=== PATIENT | male | born 1945 | race Caucasian/White ===

== ENCOUNTER → 2024-05-01 11:23 | Outpatient (REF) | payer MEDICARE, OTHER, SELFPAY | LOC: RAD 11:23 | PROVIDERS: ATTENDING PHYSICIAN Internal Medicine Geriatric Medicine | DX: R93.0 Abnormal findings on diagnostic imaging of skull and head, not elsewhere classified (principal) | CPT/HCPCS: 70496; 70498; Q9967 ==

== ENCOUNTER → 2024-05-16 09:09 | Outpatient (REF) | payer MEDICARE, OTHER, SELFPAY | LOC: HWRCS 09:09 | PROVIDERS: ATTENDING PHYSICIAN Nurse Practitioner; FAMILY PHYSICIAN Internal Medicine Geriatric Medicine | DX: Z86.73 Personal history of transient ischemic attack (TIA), and cerebral infarction without residual deficits (principal) | CPT/HCPCS: 93306 ==

== ENCOUNTER 2024-06-14 20:51 | Inpatient (IN) | payer MEDICARE, OTHER, SELFPAY ==
[2024-06-14 15:28] VITALS: BP 176/88
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
[2024-06-14 16:27] LABS: Urine Albumin Negative (Neg - Trace); Urine Bilirubin Negative (Negative); Urine Character Clear (Clear); Urine Color Yellow; Urine Glucose Negative (Negative); Urine Ketone 1+ (Negative); Urine Leukocyte Negative (Negative); Urine Nitrite Negative (Negative); Urine Occult Blood Negative (Negative); Urine Specific Gravity 1.015 (<1.030); Urine Urobilinogen 1+ (Neg - 1+)
[2024-06-14 16:33] LABS: % Basophils 0.6 % (0-2); % Eosinophils 3.2 % (0-6); % Immature Granulocytes 0.4 % (0-0.5); % Lymphocytes 23.5 % (20.5-51.1); % Neutrophils 58.3 % (42.2-75.2); Absolute Eosinophils 0.2 10^3/uL (0-0.7); Absolute Lymphocytes 1.2 10^3/uL (1.2-3.4); Absolute Monocytes 0.7 10^3/uL (0.1-0.6); Absolute Neutrophils 3.1 10^3/uL (1.4-6.5); Hemoglobin 13.6 g/dL (13.0-18.0); Mean Corp Hgb Conc. 33.2 g/dL (33.0-37.0); Mean Corpuscular Hgb 30.1 pg (27.0-31.0); Mean Corpuscular Volume 90.7 fL (80.0-94.0); Mean Platelet Volume 9.9 fL (7.4-10.4); Nucleated Red Blood Cells % 0 % (-); Platelet Count 141 10^3/uL (130-400); Red Blood Cell Count 4.52 10^6/uL (4.70-6.10); White Blood Cell Count 5.3 10^3/uL (4.8-10.8)
[2024-06-14 16:45] LABS: Blood Urea Nitrogen 14 mg/dl (9-20); Calcium 9.2 mg/dl (8.4-10.2); Carbon Dioxide 31 mmol/L (22-30); Chloride 100 mmol/L (98-107); Glucose 86 mg/dl (70-99); Sodium 137 mmol/L (135-145); eGFR > 60.00
[2024-06-14 16:51] LABS: NT-proBNP 2920 pg/ml
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
[2024-06-14 20:38] VITALS: BP 144/78
[2024-06-14 22:23] LABS: ALT (SGPT) 11 U/L (0-50); AST (SGOT) 35 U/L (17-59); Alkaline Phosphatase 57 U/L (38-126); Blood Urea Nitrogen 13 mg/dl (9-20); Calcium 9.2 mg/dl (8.4-10.2); Carbon Dioxide 30 mmol/L (22-30); Chloride 102 mmol/L (98-107); Glucose 127 mg/dl (70-99); Potassium 3.8 mmol/L (3.5-5.1); Sodium 137 mmol/L (135-145); Total Bilirubin 0.9 mg/dl (0.2-1.3); Total Protein 6.5 g/dl (6.3-8.2); eGFR > 60.00
[2024-06-14 22:57] VITALS: BP 153/90
[2024-06-14 23:34] VITALS: BP 189/110
[2024-06-15] VITALS (12 sets, daily range): BP systolic 136–169; BP diastolic 74–104; PULSE 59; BMI 29.0
[2024-06-15] MEDS: SINEMET 25-100 1 TABLET PO ×2 (00:22→22:51)
[2024-06-15] MEDS: FLOMAX 0.4 MG PO ×2 (00:22→22:52)
[2024-06-15] MEDS: ARICEPT 5 MG PO ×2 (00:22→22:52)
[2024-06-15] MEDS: LASIX 20 MG IV ×2 (00:22→15:22)
[2024-06-15 02:17] LABS: Troponin I < 0.012 ng/ml
--- NOTE | 2024-06-15 03:00 | PTCARENOTE ---
Pt received as admission from ED. NSR/SB on tele with HR 50s-60s. AAOx3 on assessment, admission questions completed and pt oriented to room. Bed alarm in place for pt safety due to frequent falls. Offers no complaints at this time. Can make
needs known. Call segundo within reach.
[2024-06-15] MEDS: SYNTHROID 50 MCG PO (06:27)
[2024-06-15 06:29] LABS: Hematocrit 38.7 % (39.0-52.0); Hemoglobin 13.5 g/dL (13.0-18.0); Mean Corp Hgb Conc. 34.9 g/dL (33.0-37.0); Mean Corpuscular Hgb 30.2 pg (27.0-31.0); Mean Corpuscular Volume 86.6 fL (80.0-94.0); Mean Platelet Volume 11.1 fL (7.4-10.4); Platelet Count 154 10^3/uL (130-400); Red Blood Cell Count 4.47 10^6/uL (4.70-6.10); Red Cell Dist. Width 13.2 % (11.5-14.5); White Blood Cell Count 5.2 10^3/uL (4.8-10.8)
[2024-06-15] MEDS: SINEMET 25-100 2 TABLET PO ×2 (07:58→15:21)
[2024-06-15] MEDS: PLAVIX 75 MG PO (07:58)
[2024-06-15] MEDS: PROSCAR 5 MG PO (07:58)
[2024-06-15] MEDS: ZETIA 10 MG PO (07:58)
[2024-06-15] MEDS: LASIX 20 MG PO (07:58)
[2024-06-15] MEDS: ASPIR LOW (ENTERIC COATED) 81 MG PO (07:58)
[2024-06-15] MEDS: ALDACTONE 50 MG PO (07:58)
[2024-06-15] MEDS: TOPROL XL 25 MG PO ×2 (07:58→19:51)
[2024-06-15] MEDS: COLACE 100 MG PO (07:59)
[2024-06-15] MEDS: CELEXA 40 MG PO (07:59)
[2024-06-15] MEDS: DEPAKOTE ER (24 HR RELEASE) 500 MG PO (07:59)
[2024-06-15 08:06] LABS: Blood Urea Nitrogen 12 mg/dl (9-20); Calcium 9.1 mg/dl (8.4-10.2); Carbon Dioxide 31 mmol/L (22-30); Chloride 101 mmol/L (98-107); Estimated Creatinine Clearance 83 ml/min; Glucose 100 mg/dl (70-99); Potassium 4.3 mmol/L (3.5-5.1); Sodium 139 mmol/L (135-145); eGFR > 60.00
[2024-06-15 09:23] LABS: TSH Reflex To Free T4 3.62 uIU/ml (0.47-4.68)
--- NOTE | 2024-06-15 13:02 | PTCARENOTE ---
Patient out of bed in chair, at bedside. He is AO x3, pleasant. Condom cath intact, yellow urine. Chair and bed alarm in place for safety, hx of falls
--- NOTE | 2024-06-15 13:28 | W.PN.HOSP.TC ---
Today's Communication/Plan
-
Monitor vital signs see plan
IV Lasix
Monitor with diuresis
Cardiology evaluation
Do not think he needs another echo, defer to cardiology
PT/OT
discussed with spouse over the phone
Assessment / Plan
Assessment / Plan
General: Well Developed, Well Nourished, No Apparent Distress, Comfortable and Conversant
HEENT: NormoCephalic, Nose Appears Normal and Ears Appear Normal
Respiratory: Clear and Decreased Breath Sounds
Cardiac: S1/S2 and Regular Rhythm
GI: Soft, Non Tender and Non Distended
Musculoskeletal: Edema, Left Lower Extremity and Edema, Right Lower Extremity
Neuro: Awake and Alert
Psych: Calm
Acute CHF with reduced EF
Echo 05/16/2024 with EF 45 to 50%, aortic stenosis. Do not think he needs another echocardiogram, defer to cardiology
Continue with Lasix
Consult cardiology, follows up with Dr. ortez outpatient
BNP >2000s
Was not on any diuretics, recently HCTZ was discontinued by PCP.
Continue to monitor with Lasix
Continue spironolactone, metoprolol
Head CT without any acute intracranial abnormality. Ventricular dilation likely secondary to atrophy given patient history of dementia.
does not appear to be complaint with dietary restrictions. If he will not be compliant and likely would benefit from diuretics moving forward.
Ambulatory dysfunction with fall
History of Parkinson's
PT/OT recommending SNF
Essential HTN
- continue metoprolol, spironolactone
Parkinson's disease
- continue carbidopa-levodopa
Dementia, unknown subtype
Continue donepezil
Coronary artery disease with stents
- continue aspirin
Hypercholesterolemia
- continue pravastatin
hx of TIA
also on pralumet
not on ASA anymore; only taking plavix. discussed with spouse
BPH
- continue finasteride, tamsulosin
Hypothyroidism
- continue levothyroxine
DVT ppx: lovenox
Code: Full
I spent a total of 51 minutes with the patient or on the floor. More than 50% of this time involved counseling and coordination of care.
Anticipated Discharge: 24 - 48 hours
Subjective/Interval History
-
Date of Service: June 15, 2024
denies pain
Objective Data
-
Labs:
Laboratory Results
06/15/24 06/15/24
06:20 07:36
WBC 5.2
Hgb 13.5
Hct 38.7 L
Plt Count 154
Sodium Cancelled 139
Potassium Cancelled 4.3
Chloride Cancelled 101
Carbon Dioxide Cancelled 31 H
BUN Cancelled 12
Creatinine Cancelled 0.7
Glucose Cancelled 100 H
Calcium Cancelled 9.1
Vital Signs:
Vital Signs
Temp Pulse Resp BP Pulse Ox
98.0 F 59 16 154/80 98
06/15/24 11:27 06/15/24 12:35 06/15/24 11:27 06/15/24 12:35 06/15/24 11:27
I&O
06/14/24 06/15/24 06/16/24
06:59 06:59 06:59
Intake Total 340 / 340
Output Total 1625 / 1625
Balance -1285 / -1285
[2024-06-15 14:15] LABS: Troponin I 0.013 ng/ml
--- NOTE | 2024-06-15 14:50 | CON.CAR ---
Consultation
Consultation Request
Date/Time Consultation Requested: 06/15/2024
Date/Time Consultation Performed: 06/15/2024
Requesting Provider: Dr. Burkett
Performing Provider: Dr. Trejo
Reason for Consultation: CHF
Medical History
-
Chief Complaint: SOB
History of Present Illness:
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
(currently being treated at [facility]) admitted after a fall at home. Cardiology was consulted for CHF.
Past Medical History
Past Medical History: CAD, CHF, HTN and Hypercholesterolemia
Past Surgical History: Cardiac (Coronary stenting), Orthopedic (Cervical and lumbar disc procedures) and Other (Melanoma excision)
Social History
Tobacco: Former Smoker
Alcohol: None
Personal:
Living: With Family ()
Employment: Retired
Family History
Family History: Reviewed & Not Pertinent
Allergies / Home Medications
Allergy/AdvReac Type Severity Reaction Status Date / Time
pollen extracts Allergy SEASONAL-SNEEZING, Verified 06/14/24 15:28
RUNNY NOSE
�Medication �Instructions �Recorded �Confirmed �Type
levothyroxine 50 mcg tablet 50 mcg PO DAILY AT 0700 Thyroid 02/10/20 06/15/24 History
carbidopa 25 mg-levodopa 100 mg 2 tab PO BID@0800,1500 02/17/22 06/15/24 History
tablet Neurological Condition
coenzyme Q10 100 mg capsule 200 mg PO QPM Supplement 02/17/22 06/15/24 History
(CoQ-10)
pravastatin 80 mg tablet 80 mg PO HS High cholesterol 02/17/22 06/15/24 History
tamsulosin 0.4 mg capsule 0.4 mg PO HS Urinary issue 02/17/22 06/15/24 History
finasteride 5 mg tablet 5 mg PO DAILY Urinary Issue 11/04/22 06/15/24 History
metoprolol succinate 25 mg 25 mg PO HS Blood Pressure 11/04/22 06/15/24 History
tablet,extended release 24 hr
nitroglycerin 0.4 mg sublingual 0.4 mg sublingual [id number] PRN 11/04/22 06/15/24 History
tablet chest pain
spironolactone 50 mg tablet 25 mg PO DAILY 11/04/22 06/15/24 History
alirocumab 75 mg/mL subcutaneous 75 mg SC Q14D 06/14/24 06/15/24 History
pen injector (Praluent Pen)
citalopram 40 mg tablet (Celexa) 40 mg PO DAILY 06/14/24 06/15/24 History
clopidogrel 75 mg tablet (Plavix) 75 mg PO DAILY 06/14/24 06/15/24 History
divalproex 250 mg tablet,extended 500 mg PO HS 06/14/24 06/15/24 History
release 24 hr
docusate sodium 100 mg capsule 100 mg PO DAILY 06/14/24 06/15/24 History
(Colace)
donepezil 5 mg tablet 5 mg PO HS 06/14/24 06/15/24 History
ezetimibe 10 mg tablet (Zetia) 10 mg PO DAILY 06/14/24 06/15/24 History
cholecalciferol (vitamin D3) 50 50 mcg PO HS 06/15/24 06/15/24 History
mcg (2,000 unit) capsule (Vitamin
D3)
multivitamin 1 tab PO HS 06/15/24 06/15/24 History
Review of Systems
-
History Source: Patient and Family ( (Cammie) at bedside)
All other systems: Negative unless noted
Musculoskeletal: Muscle Stiffness (Parkinson's)
Physical Exam
Vital Signs
Temp Pulse Resp BP Pulse Ox
98.0 F 59 16 154/80 98
06/15/24 11:27 06/15/24 12:35 06/15/24 11:27 06/15/24 12:35 06/15/24 11:27
Lab Results
06/15/24 06:20
06/15/24 07:36
Troponin I 0.013 ng/ml 06/15/24 07:36
Oml-L-Oocieirivii Pept 2920 pg/ml 06/14/24 16:06
Physical Exam
General: No Apparent Distress and Comfortable
HEENT: Anicteric
Respiratory: Rhonchi (Scant bibasilar rhonchi)
Cardiac: S1/S2, Regular Rhythm, Murmur (Soft 2/6) and Peripheral Edema (1-2+)
Breast: N/A
GI: Soft and Non Tender
Rectal: Deferred by Provider
Musculoskeletal: Edema (1-2+)
Skin: Warm and Dry
Neuro: Awake and Alert
Psych: Calm
Impression / Plan
-
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
(currently being treated at [facility]) admitted after a fall at home. Cardiology was consulted for CHF.
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
-Patient is not on Lasix at home; continue Lasix 20 mg IV BID.
-Continue Toprol-XL 25 mg twice daily.
-Continue spironolactone 50 mg daily.
-Will start valsartan 40 mg daily and Farxiga 10 mg daily for GDMT.
-Echocardiogram was performed 1 month ago--no need to repeat.
CAD status post multivessel stenting in 2008
-Denies any anginal symptoms.
-Continue aspirin, clopidogrel, Toprol-XL, and high-dose pravastatin 80 mg daily.
Mild aortic stenosis/moderate mitral regurgitation:
-Volume management with Lasix as above.
Hypertension:
-Suboptimally controlled.
-Starting losartan as above; continue other medications.
Hyperlipidemia:
-Current status unknown.
-Will obtain a lipid panel.
-Continue high-dose pravastatin.
CVA:
-Relatively stable.
-Continue aspirin, clopidogrel, and pravastatin.
Parkinson's disease:
-Most likely cause of fall.
-Supportive care; management as per primary team.
Data Reviewed
-
EKG: Report Reviewed by me (EKG (06/14/2024): Sinus rhythm at 59 bpm with incomplete right bundle branch block and nonspecific T wave abnormality.)
Medical Tests (Nuc Med, Echo etc): Report Reviewed by me (Transthoracic echocardiogram (05/16/2024): LVEF 45-50%; mild aortic stenosis; moderate mitral regurgitation.)
[2024-06-15] MEDS: FARXIGA 10 MG PO (15:21)
[2024-06-15] MEDS: DIOVAN 40 MG PO (15:21)
[2024-06-15 16:17] LABS: Troponin I < 0.012 ng/ml
[2024-06-15] MEDS: LOVENOX 40 MG SC (18:40)
--- NOTE | 2024-06-15 21:54 | PTCARENOTE ---
Pt rec'd in bed. Sinus on telemetry. no dyspnea or cough noted. Lungs clear. call segundo within reach.
[2024-06-15] MEDS: PRAVACHOL 80 MG PO (22:51)
[2024-06-16] VITALS (9 sets, daily range): BP systolic 117–155; BP diastolic 64–126; BMI 28.2
[2024-06-16 04:42] LABS: Hematocrit 41.5 % (39.0-52.0); Hemoglobin 14.1 g/dL (13.0-18.0); Mean Corpuscular Hgb 30.1 pg (27.0-31.0); Mean Corpuscular Volume 88.5 fL (80.0-94.0); Platelet Count 148 10^3/uL (130-400); Red Blood Cell Count 4.69 10^6/uL (4.70-6.10); White Blood Cell Count 5.2 10^3/uL (4.8-10.8)
[2024-06-16 05:06] LABS: Blood Urea Nitrogen 18 mg/dl (9-20); Calcium 8.7 mg/dl (8.4-10.2); Carbon Dioxide 27 mmol/L (22-30); Chloride 103 mmol/L (98-107); Estimated Creatinine Clearance 83 ml/min; Glucose 94 mg/dl (70-99); HDL Cholesterol 58 mg/dl; LDL Cholesterol, Calculated 8 mg/dl; Potassium 3.7 mmol/L (3.5-5.1); Sodium 139 mmol/L (135-145); Total Cholesterol 86 mg/dl (50-199); Triglyceride 101 mg/dl (10-149); Very Low Density Lipoprotein 20 mg/dl (0-30); eGFR > 60.00
[2024-06-16] MEDS: SYNTHROID 50 MCG PO (07:48)
[2024-06-16 08:41] LABS: Glycohemoglobin (HgbA1c) 5.8 % (4.0-5.6)
[2024-06-16] MEDS: DEPAKOTE ER (24 HR RELEASE) 500 MG PO (08:46)
[2024-06-16] MEDS: FARXIGA 10 MG PO (08:47)
[2024-06-16] MEDS: CELEXA 40 MG PO (08:48)
[2024-06-16] MEDS: DIOVAN 40 MG PO (08:48)
[2024-06-16] MEDS: PROSCAR 5 MG PO (08:48)
[2024-06-16] MEDS: SINEMET 25-100 2 TABLET PO ×2 (08:48→16:32)
[2024-06-16] MEDS: ZETIA 10 MG PO (08:49)
[2024-06-16] MEDS: COLACE 100 MG PO (08:49)
[2024-06-16] MEDS: PLAVIX 75 MG PO (08:49)
[2024-06-16] MEDS: TOPROL XL 25 MG PO ×2 (08:50→20:12)
[2024-06-16] MEDS: LASIX 20 MG IV ×2 (08:50→16:32)
[2024-06-16] MEDS: ALDACTONE 50 MG PO (08:50)
--- NOTE | 2024-06-16 09:55 | PTCARENOTE ---
Assumed care. Patient is AOX3, using call segundo for needs, very pleasant. Condom catheter changed #30, large volume of yellow urine, has incontinence normally. SB, PVC's HR 55. Eating breakfast, call segundo in reach
--- NOTE | 2024-06-16 13:40 | W.PN.HOSP.TC ---
Today's Communication/Plan
-
Monitor vital signs see plan
PT/OT
Continue with IV diuresis
need rehab placement
Assessment / Plan
Assessment / Plan
General: Well Developed, Well Nourished, No Apparent Distress, Comfortable and Conversant
HEENT: NormoCephalic, Nose Appears Normal and Ears Appear Normal
Respiratory: Clear and Decreased Breath Sounds
Cardiac: S1/S2 and Regular Rhythm
GI: Soft, Non Tender and Non Distended
Musculoskeletal: Edema, Left Lower Extremity and Edema, Right Lower Extremity
Neuro: Awake and Alert
Psych: Calm
Acute CHF with reduced EF
Echo 05/16/2024 with EF 45 to 50%, aortic stenosis. Do not think he needs another echocardiogram, defer to cardiology
Continue with IV Lasix
Consult cardiology, follows up with Dr. ortez outpatient
BNP >2000s
Was not on any diuretics, recently HCTZ was discontinued by PCP.
Continue to monitor with Lasix
Continue spironolactone, metoprolol; added valsartan, Farxiga
Head CT without any acute intracranial abnormality. Ventricular dilation likely secondary to atrophy given patient history of dementia.
does not appear to be complaint with dietary restrictions. If he will not be compliant and likely would benefit from diuretics moving forward.
Ambulatory dysfunction with fall
History of Parkinson's
PT/OT recommending SNF
Essential HTN
- continue metoprolol, spironolactone
Parkinson's disease
- continue carbidopa-levodopa
Dementia, unknown subtype
Monitor for behavioral changes, very pleasant here
Continue donepezil
hx of DM
not on any meds
now a1c 5.8 which is much better
diet controlled
Coronary artery disease with stents
- continue aspirin
Hypercholesterolemia
- continue pravastatin
hx of TIA
also on pralumet
not on ASA anymore; only taking plavix. discussed with spouse
BPH
- continue finasteride, tamsulosin
Hypothyroidism
- continue levothyroxine
DVT ppx: lovenox
Code: Full
PT/OT recommending SNF
I spent a total of 52 minutes with the patient or on the floor. More than 50% of this time involved counseling and coordination of care.
Anticipated Discharge: 24 - 48 hours
Subjective/Interval History
-
Date of Service: June 16, 2024
Denies pain
Objective Data
-
Labs:
Laboratory Results
06/16/24
03:59
WBC 5.2
Hgb 14.1
Hct 41.5
Plt Count 148
Sodium 139
Potassium 3.7
Chloride 103
Carbon Dioxide 27
BUN 18
Creatinine 0.7
Glucose 94
Calcium 8.7
Vital Signs:
Vital Signs
Temp Pulse Resp BP Pulse Ox
98.5 F 52 20 147/93 98
06/16/24 10:50 06/16/24 08:50 06/16/24 10:50 06/16/24 03:52 06/16/24 10:50
I&O
06/15/24 06/16/24 06/17/24
06:59 06:59 06:59
Intake Total 340 / 340 480 / 480
Output Total 1625 / 1625 1125 / 1125 1150 / 1150
Balance -1285 / -1285 -1125 / -1125 -670 / -670
--- NOTE | 2024-06-16 15:23 | W.PN.CD ---
Today's Communication / Plan
-
-Continue Lasix 20 mg IV BID.
Impression / Plan
-
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
(currently being treated at [facility]) admitted after a fall at home. Cardiology was consulted for CHF.
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
-Patient is not on Lasix at home.
-Continue Lasix 20 mg IV BID.
-Continue Toprol-XL 25 mg twice daily.
-Continue spironolactone 50 mg daily.
-Continue valsartan 40 mg daily.
-Continue Farxiga 10 mg daily.
-Echocardiogram was performed 1 month ago--no need to repeat.
CAD status post multivessel stenting in 2008
-Denies any anginal symptoms.
-Continue aspirin, clopidogrel, Toprol-XL, and high-dose pravastatin 80 mg daily.
Mild aortic stenosis/moderate mitral regurgitation:
-Continue volume management with Lasix as above.
Hypertension:
-Improved; fairly controlled.
-Continue current medications as above.
Hyperlipidemia:
-Well-controlled
-Continue high-dose pravastatin.
CVA:
-Remanins relatively stable.
-Continue aspirin, clopidogrel, and pravastatin.
Parkinson's disease:
-Most likely cause of fall.
-Supportive care; management as per primary team.
Physical Exam
Vital Signs/Labs
Vital Signs
Temp Pulse Resp BP Pulse Ox
98.5 F 49 20 117/64 100
06/16/24 10:50 06/16/24 13:00 06/16/24 10:50 06/16/24 10:50 06/16/24 10:50
06/15/24 06/16/24 06/17/24
06:59 06:59 06:59
Actual Weight 84 kg 81.7 kg
06/16/24 03:59
06/16/24 03:59
Triglycerides 101 mg/dl (10-149) 06/16/24 03:59
LDL Cholesterol, Calc 8 mg/dl 06/16/24 03:59
VLDL Cholesterol, Calc 20 mg/dl (0-30) 06/16/24 03:59
HDL Cholesterol 58 mg/dl 06/16/24 03:59
06/14/24
16:06
Pil-L-Qvlpznngrnd Pept 2920
LAB Results
06/15/24 06/15/24 06/15/24
01:36 06:20 07:36
Troponin I < 0.012 Cancelled 0.013
06/15/24
15:40
Troponin I < 0.012
Physical Exam
Constitutional: No acute distress and Comfortable
EENT: Anicteric
Cardiovascular: Rhythm & rate is regular, Pedal edema present (1+), Systolic murmur present (2/6) and S1S2 is normal
Respiratory: Respiratory effort normal and Lungs clear to auscul.
Neuro/Psych: AO x 3
Other: Skin (Warm, dry)
Data Reviewed
-
Date of Service: June 16, 2024
EKG: Tracing Personally Visualized and interpreted (Telemetry: Sinus rhythm/bradycardia to 45 bpm)
Labs: Labs Reviewed by me
[2024-06-16] MEDS: LOVENOX 40 MG SC (16:32)
--- NOTE | 2024-06-16 17:43 | PTCARENOTE ---
Walked in the hallway with rolling walker to the lounge and back, gait steady. patient in chair now, call segundo in reach.
--- NOTE | 2024-06-16 21:20 | PTCARENOTE ---
Rec'd at change of shift. AAO*3, VSS, and pt in SR with occasional PVC's. Pt denies any pain or discomfort. Pt with hx of memory loss and placed on bed alarm for safety. Pt resting with call segundo in reach.
[2024-06-16] MEDS: FLOMAX 0.4 MG PO (22:26)
[2024-06-16] MEDS: SINEMET 25-100 1 TABLET PO (22:26)
[2024-06-16] MEDS: ARICEPT 5 MG PO (22:26)
[2024-06-16] MEDS: PRAVACHOL 80 MG PO (22:26)
[2024-06-17] VITALS (7 sets, daily range): BP systolic 109–149; BP diastolic 57–78; BMI 27.8
[2024-06-17 04:43] LABS: Blood Urea Nitrogen 23 mg/dl (9-20); Calcium 9.1 mg/dl (8.4-10.2); Carbon Dioxide 31 mmol/L (22-30); Chloride 99 mmol/L (98-107); Estimated Creatinine Clearance 72 ml/min; Glucose 93 mg/dl (70-99); Potassium 3.6 mmol/L (3.5-5.1); Sodium 138 mmol/L (135-145); eGFR > 60.00
[2024-06-17 04:59] LABS: Hematocrit 41.5 % (39.0-52.0); Hemoglobin 14.2 g/dL (13.0-18.0); Mean Corp Hgb Conc. 34.2 g/dL (33.0-37.0); Mean Corpuscular Hgb 30.4 pg (27.0-31.0); Mean Corpuscular Volume 88.9 fL (80.0-94.0); Mean Platelet Volume 10.1 fL (7.4-10.4); Platelet Count 152 10^3/uL (130-400); Red Blood Cell Count 4.67 10^6/uL (4.70-6.10)
[2024-06-17 05:14] LABS: Depakane 39.4 ug/ml (50.0-120.0)
[2024-06-17] MEDS: SYNTHROID 50 MCG PO (05:31)
[2024-06-17] MEDS: FARXIGA 10 MG PO (08:28)
[2024-06-17] MEDS: PLAVIX 75 MG PO (08:29)
[2024-06-17] MEDS: CELEXA 40 MG PO (08:29)
[2024-06-17] MEDS: ZETIA 10 MG PO (08:29)
[2024-06-17] MEDS: COLACE 100 MG PO (08:30)
[2024-06-17] MEDS: DEPAKOTE ER (24 HR RELEASE) 500 MG PO (08:30)
[2024-06-17] MEDS: SINEMET 25-100 2 TABLET PO ×2 (08:31→16:09)
[2024-06-17] MEDS: PROSCAR 5 MG PO (08:31)
[2024-06-17] MEDS: ALDACTONE 50 MG PO (08:31)
[2024-06-17] MEDS: DIOVAN 40 MG PO (08:31)
[2024-06-17] MEDS: LASIX 20 MG IV ×2 (08:32→16:09)
[2024-06-17] MEDS: TOPROL XL 25 MG PO ×2 (08:32→19:54)
--- NOTE | 2024-06-17 08:34 | W.PN.CD ---
Today's Communication / Plan
-
IV diuresis today; PO tomorrow
Impression / Plan
-
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
(currently being treated at [facility]) admitted after a fall at home. Cardiology was consulted for CHF.
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
-Patient is not on Lasix at home.
-Continue Lasix 20 mg IV BID.
-Continue Toprol-XL 25 mg twice daily.
-Continue spironolactone 50 mg daily.
-Continue valsartan 40 mg daily.
-Continue Farxiga 10 mg daily.
-Echocardiogram was performed 1 month ago--no need to repeat.
CAD status post multivessel stenting in 2008
-Denies any anginal symptoms.
-Continue aspirin, clopidogrel, Toprol-XL, and high-dose pravastatin 80 mg daily.
Mild aortic stenosis/moderate mitral regurgitation:
-Continue volume management with Lasix as above.
Hypertension:
-Improved; fairly controlled.
-Continue current medications as above.
Hyperlipidemia:
-Well-controlled
-Continue high-dose pravastatin.
CVA:
-Remanins relatively stable.
-Continue aspirin, clopidogrel, and pravastatin.
Parkinson's disease:
-Most likely cause of fall.
-Supportive care; management as per primary team.
Subjective: feeling better would like to walk more today
Physical Exam
Vital Signs/Labs
Vital Signs
Temp Pulse Resp BP Pulse Ox
98.2 F 53 16 139/65 96
06/17/24 07:15 06/17/24 05:00 06/17/24 07:15 06/17/24 03:42 06/17/24 07:15
06/16/24 06/17/24 06/18/24
06:59 06:59 06:59
Actual Weight 180 lb 1.883 oz 177 lb 7.554 oz
06/17/24 03:48
06/17/24 03:48
Triglycerides 101 mg/dl (10-149) 06/16/24 03:59
LDL Cholesterol, Calc 8 mg/dl 06/16/24 03:59
VLDL Cholesterol, Calc 20 mg/dl (0-30) 06/16/24 03:59
HDL Cholesterol 58 mg/dl 06/16/24 03:59
06/14/24
16:06
Tgm-Z-Aneoyfwkvzy Pept 2920
LAB Results
06/15/24 06/15/24 06/15/24
01:36 06:20 07:36
Troponin I < 0.012 Cancelled 0.013
06/15/24
15:40
Troponin I < 0.012
Physical Exam
Constitutional: No acute distress and Comfortable
EENT: Anicteric
Cardiovascular: Rhythm & rate is regular and Pedal edema present (trace to 1+)
Respiratory: Respiratory effort normal and Lungs clear to auscul.
GI: Soft
Neuro/Psych: Alert and Oriented
Data Reviewed
-
Date of Service: June 17, 2024
Medical Decision Making: Reviewed Test Results
EKG: Tracing Personally Visualized and interpreted (sr)
Echo: Tracing Personally Visualized and interpreted and Report Reviewed by me
Labs: Labs Reviewed by me
--- NOTE | 2024-06-17 13:14 | CM ---
Reviewed chart. Met with Mr. Noble to review discharge plans. He states prior to admission he resides with his spouse in a two sto ry home with two steps onto the home. He states he has a stair glide to get to the second floor. He states
prior to admission he was independent with ambulation and adls. He states he only has a stair glide at home and no other DME. He states he has a prescription plan. We reviewed the medical team recommendations for SNF/Rehab. He is agreeable to
going to SNF/Rehab. He states [facility] close [facility] home. He was agreeable to me calling his spouse to review SNF/Rehab. Telephone call to his spouse, Rebecca to review SNF/Rehab. She states she would like to explore SNF/Rehab. at
[facility] and [facility]. Referral sent to the above SNF's to check on bed availability. Medical work-up in progress. The discharge plan is to go to SNF/Rehab. when bed available and medically stable.
--- NOTE | 2024-06-17 13:40 | W.PN.HOSP.TC ---
Today's Communication/Plan
-
continue IV Lasix, then oral Lasix tomorrow
DC planning to a SNF
Assessment / Plan
Assessment / Plan
General: Well Developed, Well Nourished, No Apparent Distress, Comfortable and Conversant
HEENT: NormoCephalic, Nose Appears Normal and Ears Appear Normal
Respiratory: Clear and Decreased Breath Sounds
Cardiac: S1/S2 and Regular Rhythm
GI: Soft, Non Tender and Non Distended
Musculoskeletal: Edema, Left Lower Extremity and Edema, Right Lower Extremity
Neuro: Awake and Alert
Psych: Calm
Assessment:
Acute CHF with reduced EF
Echo 05/16/2024 with EF 45 to 50%, aortic stenosis. Do not think he needs another echocardiogram, defer to cardiology
Continue with IV Lasix BID; oral tomorrow
Consult cardiology, follows up with Dr. Kraft outpatient
BNP >2000s
Was not on any diuretics, recently HCTZ was discontinued by PCP.
Continue to monitor with Lasix
Continue spironolactone, metoprolol; added valsartan, Farxiga
Head CT without any acute intracranial abnormality. Ventricular dilation likely secondary to atrophy given patient history of dementia.
does not appear to be complaint with dietary restrictions. If he will not be compliant and likely would benefit from diuretics moving forward.
Ambulatory dysfunction with fall
History of Parkinson's
PT/OT recommending SNF
Essential HTN
- continue metoprolol, spironolactone
Parkinson's disease
- continue carbidopa-levodopa
Dementia, unknown subtype
Monitor for behavioral changes, very pleasant here
Continue donepezil
hx of DM
not on any meds
now a1c 5.8 which is much better
diet controlled
Coronary artery disease with stents
- continue aspirin
Hypercholesterolemia
- continue pravastatin
hx of TIA
also on pralumet
not on ASA anymore; only taking Plavix. discussed with spouse
BPH
- continue finasteride, tamsulosin
Hypothyroidism
- continue levothyroxine
DVT ppx: Lovenox
Code: Full
PT/OT recommending SNF. discussed with CM.
Anticipated Discharge: 24 - 48 hours
Subjective/Interval History
-
Date of Service: June 17, 2024
no complaints
Objective Data
-
Labs:
Laboratory Results
06/17/24
03:48
WBC 5.0
Hgb 14.2
Hct 41.5
Plt Count 152
Sodium 138
Potassium 3.6
Chloride 99
Carbon Dioxide 31 H
BUN 23 H
Creatinine 0.8
Glucose 93
Calcium 9.1
Vital Signs:
Vital Signs
Temp Pulse Resp BP Pulse Ox
98.0 F 51 18 147/76 96
06/17/24 11:28 06/17/24 10:00 06/17/24 11:28 06/17/24 07:14 06/17/24 11:28
I&O
06/16/24 06/17/24 06/18/24
06:59 06:59 06:59
Intake Total 480 / 480 480 / 480
Output Total 1125 / 1125 0 / 2049 600 / 600
Balance -1125 / -1125 -1570 / -1570 -120 / -120
Data Reviewed
-
Total Time Spent with Patient (in minutes): 51
Labs: Labs Reviewed by me
--- NOTE | 2024-06-17 14:40 | PTCARENOTE ---
pt continues to be sb on the monitor, hr in the 50s, vss. pt educated on plan of care and pt verbalized understanding. pt oob to chair for most of the day. call segundo within reach.
[2024-06-17] MEDS: KCL 40 MEQ PO (18:00)
[2024-06-17] MEDS: LOVENOX 40 MG SC (18:00)
--- NOTE | 2024-06-17 18:37 | PTCARENOTE ---
pt had 8 beat run of vt. vss. pt asymptomatic. notified enrique morse. ordered potassium, given as ordered see MAR. pt educated on plan of care and pt verbalized understanding. call segundo within reach.
--- NOTE | 2024-06-17 20:17 | PTCARENOTE ---
Received patient at change of shift. Sitting in chair, eating dinner, A&Ox3. Chair and bed alarms are on. BP 118/67, SB w/ occasional PVCs 50s, 98% on room air. Pt has no c/o of pain or SOB at this time. Discussed calling the care team when wanting
to get up. Patient verbalized understanding. Call segundo within reach.
[2024-06-17] MEDS: FLOMAX 0.4 MG PO (22:02)
[2024-06-17] MEDS: SINEMET 25-100 1 TABLET PO (22:02)
[2024-06-17] MEDS: PRAVACHOL 80 MG PO (22:02)
[2024-06-17] MEDS: ARICEPT 5 MG PO (22:09)
[2024-06-18] VITALS (10 sets, daily range): BP systolic 86–155; BP diastolic 50–87; PULSE 114; O2SAT 96; BMI 27.3
[2024-06-18 05:37] LABS: Blood Urea Nitrogen 28 mg/dl (9-20); Calcium 9.1 mg/dl (8.4-10.2); Carbon Dioxide 30 mmol/L (22-30); Chloride 100 mmol/L (98-107); Estimated Creatinine Clearance 72 ml/min; Glucose 108 mg/dl (70-99); Sodium 137 mmol/L (135-145); eGFR > 60.00
[2024-06-18] MEDS: SYNTHROID 50 MCG PO (06:32)
--- NOTE | 2024-06-18 08:33 | W.PN.HOSP.TC ---
Today's Communication/Plan
-
possible transition to PO diuretics today; if this occurs, patient is medically stable for DC if SNF bed found. D/w CM.
Assessment / Plan
Assessment / Plan
General: Well Developed, Well Nourished, No Apparent Distress, Comfortable and Conversant
HEENT: NormoCephalic, Nose Appears Normal and Ears Appear Normal
Respiratory: Clear and Decreased Breath Sounds
Cardiac: S1/S2 and Regular Rhythm
GI: Soft, Non Tender and Non Distended
Musculoskeletal: Edema, Left Lower Extremity and Edema, Right Lower Extremity
Neuro: Awake and Alert
Psych: Calm
Assessment:
Acute CHF with reduced EF
Echo 05/16/2024 with EF 45 to 50%, aortic stenosis. Do not think he needs another echocardiogram, defer to cardiology
Continue with IV Lasix BID; transition to oral possibly today per Cardiology.
Consult cardiology, follows up with Dr. Kraft outpatient
BNP >2000s
Was not on any diuretics, recently HCTZ was discontinued by PCP.
Continue to monitor with Lasix
Continue spironolactone, metoprolol; added valsartan, Farxiga
Head CT without any acute intracranial abnormality. Ventricular dilation likely secondary to atrophy given patient history of dementia.
does not appear to be complaint with dietary restrictions. If he will not be compliant and likely would benefit from diuretics moving forward.
Ambulatory dysfunction with fall
History of Parkinson's
PT/OT recommending SNF - pending bed
Essential HTN
- continue metoprolol, spironolactone
Parkinson's disease
- continue carbidopa-levodopa
Dementia, unknown subtype
Monitor for behavioral changes, very pleasant here
Continue donepezil
hx of DM
not on any meds
now a1c 5.8 which is much better
diet controlled
Coronary artery disease with stents
- continue aspirin
Hypercholesterolemia
- continue pravastatin
hx of TIA
also on pralumet
not on ASA anymore; only taking Plavix. Dr. Burkett discussed with spouse
BPH
- continue finasteride, tamsulosin
Hypothyroidism
- continue levothyroxine
DVT ppx: Lovenox
Code: Full
PT/OT recommending SNF. discussed with CM.
Anticipated Discharge: Within 24 hours
Subjective/Interval History
-
Date of Service: June 18, 2024
denies any new complaints at present
Objective Data
-
Labs:
Laboratory Results
06/18/24
04:38
Sodium 137
Potassium 4.0
Chloride 100
Carbon Dioxide 30
BUN 28 H
Creatinine 0.8
Glucose 108 H
Calcium 9.1
Vital Signs:
Vital Signs
Temp Pulse Resp BP Pulse Ox
98.1 F 51 16 146/74 96
06/18/24 04:31 06/18/24 05:00 06/18/24 04:31 06/18/24 04:33 06/18/24 04:31
I&O
06/17/24 06/18/24 06/19/24
06:59 06:59 06:59
Intake Total 480 / 480 480 / 480
Output Total 2049 190 / 1899
Balance -1570 / -1570 -1420 / -1420
Data Reviewed
-
Total Time Spent with Patient (in minutes): 41
Labs: Labs Reviewed by me
--- NOTE | 2024-06-18 08:56 | W.PN.CD ---
Today's Communication / Plan
-
hold pm IV lasix
transition to Po lasix tomorrow---this is new
he needs to comply with daily wts and call for s/sx of overdiuresis or weight gain
will arrange follow up in ~1 month after SNF discharge
I will sign off
Impression / Plan
-
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
(currently being treated at [facility]) admitted after a fall at home. Cardiology was consulted for CHF.
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
-he is euvolemic today
-Patient is not on Lasix at home.
-he already received IV lasix today, will stop pm dose and add 20mg po lasix daily to start tomorrow
-discussed s/sx of over diuresis and wt gatin
-continue daily weights at discharge.
-Continue Toprol-XL 25 mg twice daily.
-Continue spironolactone 50 mg daily.
-Continue valsartan 40 mg daily.
-Continue Farxiga 10 mg daily.
-Echocardiogram was performed 1 month ago--no need to repeat.
CAD status post multivessel stenting in 2008
-Denies any anginal symptoms.
-Continue aspirin, clopidogrel, Toprol-XL, and high-dose pravastatin 80 mg daily.
Mild aortic stenosis/moderate mitral regurgitation:
-Continue volume management with Lasix as above.
Hypertension:
-Improved; fairly controlled.
-Continue current medications as above.
Hyperlipidemia:
-Well-controlled
-Continue high-dose pravastatin.
CVA:
-Remanins relatively stable.
-Continue aspirin, clopidogrel, and pravastatin.
Parkinson's disease:
-Most likely cause of fall.
-Supportive care; management as per primary team.
Subjective: he is feeling much better, no new complaint.
Physical Exam
Vital Signs/Labs
Vital Signs
Temp Pulse Resp BP Pulse Ox
98.1 F 51 16 146/74 95
06/18/24 07:00 06/18/24 05:00 06/18/24 07:00 06/18/24 04:33 06/18/24 07:00
06/17/24 06/18/24 06/19/24
06:59 06:59 06:59
Actual Weight 80.5 kg
06/17/24 03:48
06/18/24 04:38
Triglycerides 101 mg/dl (10-149) 06/16/24 03:59
LDL Cholesterol, Calc 8 mg/dl 06/16/24 03:59
VLDL Cholesterol, Calc 20 mg/dl (0-30) 06/16/24 03:59
HDL Cholesterol 58 mg/dl 06/16/24 03:59
06/14/24
16:06
Yhx-W-Mebzqontlkk Pept 2920
LAB Results
06/15/24 06/15/24
07:36 15:40
Troponin I 0.013 < 0.012
Physical Exam
Constitutional: No acute distress
Cardiovascular: Rhythm & rate is regular, Pedal edema is absent, JVD pressure is normal and Systolic murmur absent
Respiratory: Respiratory effort normal, Lungs clear to auscul., Wheeze Absent and Crackles Absent
Neuro/Psych: AO x 3
Data Reviewed
-
Date of Service: June 18, 2024
Medical Decision Making: Review of Case with other Provider (d/w Dr Flaco amin for discharge)
EKG: Other (tele sinus with pvcs)
[2024-06-18] MEDS: LASIX 20 MG IV (09:12)
[2024-06-18] MEDS: SINEMET 25-100 2 TABLET PO ×2 (09:21→15:12)
[2024-06-18] MEDS: CELEXA 40 MG PO (09:22)
[2024-06-18] MEDS: ALDACTONE 50 MG PO (09:22)
[2024-06-18] MEDS: TOPROL XL 25 MG PO ×2 (09:22→19:46)
[2024-06-18] MEDS: PROSCAR 5 MG PO (09:22)
[2024-06-18] MEDS: FARXIGA 10 MG PO (09:23)
[2024-06-18] MEDS: PLAVIX 75 MG PO (09:23)
[2024-06-18] MEDS: DEPAKOTE ER (24 HR RELEASE) 500 MG PO (09:23)
[2024-06-18] MEDS: COLACE 100 MG PO (09:23)
[2024-06-18] MEDS: DIOVAN 40 MG PO (09:23)
[2024-06-18] MEDS: ZETIA 10 MG PO (09:24)
--- NOTE | 2024-06-18 10:31 | CM ---
Reviewed chart. Telephone call to [facility] to check on bed availability. [facility] states they will have a bed for him tomorrow 06/19/24. Telephone call to spouse to update her and met with Mr. Noble to update
him. He will need a COVID-19 test prior to leaving. Reviewed transportation and out of pocket cost for wheelchair van. Medical work-up in progress. The discharge plan is to go to SNF/Rehab- hopefully [facility] when medically stable.
--- NOTE | 2024-06-18 11:48 | PTCARENOTE ---
Discussed plan for d/c on 06/19, with pt's spouse, via phone. Pt's spouse requesting that pt be given a walker on d/c. Pt does not have his own walker, per spouse. notified.
[2024-06-18] MEDS: LOVENOX 40 MG SC (17:10)
[2024-06-18] MEDS: SINEMET 25-100 1 TABLET PO (22:49)
[2024-06-18] MEDS: PRAVACHOL 80 MG PO (22:49)
[2024-06-18] MEDS: FLOMAX 0.4 MG PO (22:49)
[2024-06-18] MEDS: ARICEPT 5 MG PO (22:49)
[2024-06-19 03:43] VITALS: BP 149/74
[2024-06-19 04:06] VITALS: BMI 27.3
[2024-06-19 05:07] LABS: COVID-19 Antigen Negative (Negative)
[2024-06-19 05:17] LABS: Hematocrit 42.4 % (39.0-52.0); Hemoglobin 14.4 g/dL (13.0-18.0); Mean Corpuscular Hgb 30.3 pg (27.0-31.0); Mean Corpuscular Volume 89.1 fL (80.0-94.0); Mean Platelet Volume 10.1 fL (7.4-10.4); Platelet Count 138 10^3/uL (130-400); Red Blood Cell Count 4.76 10^6/uL (4.70-6.10); Red Cell Dist. Width 12.9 % (11.5-14.5); White Blood Cell Count 4.5 10^3/uL (4.8-10.8)
[2024-06-19 06:38] LABS: Blood Urea Nitrogen 29 mg/dl (9-20); Calcium 9.7 mg/dl (8.4-10.2); Carbon Dioxide 25 mmol/L (22-30); Chloride 102 mmol/L (98-107); Estimated Creatinine Clearance 72 ml/min; Glucose 107 mg/dl (70-99); Potassium 4.2 mmol/L (3.5-5.1); Sodium 136 mmol/L (135-145); eGFR > 60.00
[2024-06-19 06:53] VITALS: BP 164/88
[2024-06-19] MEDS: CELEXA 40 MG PO (08:37)
[2024-06-19] MEDS: SYNTHROID 50 MCG PO (08:37)
[2024-06-19] MEDS: ALDACTONE 50 MG PO (08:37)
[2024-06-19] MEDS: COLACE 100 MG PO (08:37)
[2024-06-19] MEDS: DEPAKOTE ER (24 HR RELEASE) 500 MG PO (08:37)
[2024-06-19] MEDS: ZETIA 10 MG PO (08:38)
[2024-06-19] MEDS: DIOVAN 40 MG PO (08:38)
[2024-06-19] MEDS: PLAVIX 75 MG PO (08:38)
[2024-06-19] MEDS: LASIX 40 MG PO (08:38)
[2024-06-19] MEDS: FARXIGA 10 MG PO (08:38)
[2024-06-19] MEDS: SINEMET 25-100 2 TABLET PO (08:39)
[2024-06-19] MEDS: PROSCAR 5 MG PO (08:39)
[2024-06-19] MEDS: TOPROL XL PO ×2 (08:39→10:17)
--- NOTE | 2024-06-19 10:41 | W.PN.HOSP.TC ---
Addendum entered and electronically signed by Enrrique Burkett MD 06/19/24 10:52:
Acute on chronic congestive heart failure with reduced ejection fraction
Original Note:
Today's Communication/Plan
-
Monitor vitals
See plan
Decrease metoprolol
Continue with Lasix
Continue Aldactone
Discharge today to SNF
Time of discharge 37 minutes
Assessment / Plan
Assessment / Plan
General: Well Developed, Well Nourished, No Apparent Distress, Comfortable and Conversant
HEENT: NormoCephalic, Nose Appears Normal and Ears Appear Normal
Respiratory: Clear and Decreased Breath Sounds
Cardiac: S1/S2 and Regular Rhythm
GI: Soft, Non Tender and Non Distended
Musculoskeletal: Edema, Left Lower Extremity and Edema, Right Lower Extremity
Neuro: Awake and Alert
Psych: Calm
Assessment:
Acute CHF with reduced EF
Echo 05/16/2024 with EF 45 to 50%, aortic stenosis. Do not think he needs another echocardiogram, defer to cardiology
Continue with IV Lasix BID; now on p.o. Lasix per cardiology
Consult cardiology, follows up with Dr. Kraft outpatient
BNP >2000s
Was not on any diuretics, recently HCTZ was discontinued by PCP.
Continue to monitor with Lasix
Continue spironolactone, metoprolol; added valsartan, Farxiga. Metoprolol decreased secondary to bradycardia. Denies any dizziness
Head CT without any acute intracranial abnormality. Ventricular dilation likely secondary to atrophy given patient history of dementia.
does not appear to be complaint with dietary restrictions. If he will not be compliant and likely would benefit from diuretics moving forward.
Ambulatory dysfunction with fall
History of Parkinson's
PT/OT recommending SNF - pending bed
Essential HTN
- continue metoprolol, spironolactone
Parkinson's disease
- continue carbidopa-levodopa
Dementia, unknown subtype
Monitor for behavioral changes, very pleasant here
Continue donepezil
hx of DM
not on any meds
now a1c 5.8 which is much better
diet controlled
Coronary artery disease with stents
- continue aspirin
Hypercholesterolemia
- continue pravastatin
hx of TIA
also on pralumet
not on ASA anymore; only taking Plavix. Dr. Burkett discussed with spouse
BPH
- continue finasteride, tamsulosin
Hypothyroidism
- continue levothyroxine
DVT ppx: Lovenox
Code: Full
PT/OT recommending SNF. discussed with CM.
Anticipated Discharge: Today
Subjective/Interval History
-
Date of Service: June 19, 2024
Denies pain
Objective Data
-
Labs:
Laboratory Results
06/19/24
04:37
WBC 4.5 L
Hgb 14.4
Hct 42.4
Plt Count 138
Sodium 136
Potassium 4.2
Chloride 102
Carbon Dioxide 25
BUN 29 H
Creatinine 0.8
Glucose 107 H
Calcium 9.7
Vital Signs:
Vital Signs
Temp Pulse Resp BP Pulse Ox
98 F 44 20 164/88 97
06/19/24 06:53 06/19/24 10:17 06/19/24 06:53 06/19/24 06:53 06/19/24 06:53
I&O
06/18/24 06/19/24 06/20/24
06:59 06:59 06:59
Intake Total 480 / 480 490 / 490
Output Total 1900 / 1900 1400 / 1400 150 / 150
Balance -1420 / -1420 -910 / -910 -150 / -150
--- NOTE | 2024-06-19 10:44 | PTCARENOTE ---
Received patient this morning resting in bed. Offers no complaints, aware of plans to go to [facility] today by wheel chair van. Assisted oob with the rolling walker to the chair. HR consistently in the 40's, asymptomatic. TT to cardiology and
toprol dosage adjusted. Call segundo in reach, chair/bed alarm in place and activated.
--- NOTE | 2024-06-19 10:49 | CM ---
Addendum entered by Maral Wood 06/19/24 11:24:
Arrangements made with [facility] to transport Mr. Noble to [facility] today at 12:00 noon. Updated nursing staff, patient and spouse. The discharge plan is to go to [facility] when medically stable.
Original Note:
Reviewed chart. Received telephone call from [facility] who confirms ability to accept today. [facility] report number is [phone]) and the fax number is [phone]) COVID test done. Telephone call to Mrs. Noble to
review discharge plan and transportation to [facility]. Reviewed out of pocket cost for wheelchair van. She is agreeable to wheelchair van. Reviewed with attending physician. Medical work-up in progress. The discharge plan is to go to [facility] when medically stable.
--- NOTE | 2024-06-19 10:51 | W.DCSUMMARY ---
Discharge Summary
Discharge Data
Date of Admission: 06/14/24
Date of Discharge: 06/19/24
-
Pending Results: No
Hospital Course
78-year-old male with past medical history of essential hypertension, Parkinson disease, dementia, diabetes mellitus, coronary artery disease with stents, CHF, hyperlipidemia, TIA, BPH, hypothyroidism came to the hospital with amatory dysfunction
with fall and congestive heart failure exacerbation. Patient had an echocardiogram recently outpatient which showed EF of 45 to 50% with aortic stenosis. Patient was not on any diuresis prior to the admission. Patient was started on IV Lasix
which improved his symptoms and later he was transitioned to p.o. Lasix prior to discharge. On this hospitalization his metoprolol was also decreased due to bradycardia. Patient was also evaluated by physical therapy who recommended SNF. Once his
symptoms continue to improve, he was then discharged to rehab with instructions to follow-up with all his physicians outpatient.
Discharge Plan
-
Patient Disposition: Group Home/SNF
Discharge Diagnosis/Procedures: Acute on chronic congestive heart failure with reduced ejection fraction
Mild aortic stenosis
Sinus bradycardia
Ambulatory dysfunction
Diet: As tolerated and Low Cholesterol
Activity: With assistance
Driving Restrictions: As prior to admission
Bathing Restrictions: None
Blood Work: BMP next week with primary care provider
Instructions: *CBC Heart Failure Instructions
Referrals:
[facility] [Outside]
Deepa Resendiz CRNP [Specified Professional Personl] - 07/16/24 10:00 am
Olvin Gibson MD [Family Provider] - in less than 1 week
Prescriptions:
New
furosemide 40 mg Tablet
40 mg PO DAILY Qty: 0 0RF
metoprolol succinate 25 mg Tablet Extended Release 24 Hr
12.5 mg PO BID Qty: 0 0RF
spironolactone 50 mg Tablet
50 mg PO DAILY Qty: 0 0RF
valsartan 40 mg Tablet
40 mg PO DAILY Qty: 0 0RF
dapagliflozin propanediol 10 mg Tablet
10 mg PO DAILY Qty: 0 0RF
Continued
levothyroxine 50 MCG tablet
50 mcg PO DAILY AT 0700
pravastatin 80 mg Tablet
80 mg PO HS
tamsulosin 0.4 mg Capsule
0.4 mg PO HS
carbidopa-levodopa 25-100 mg Tablet
2 tab PO BID@0800,1500
coenzyme Q10 [CoQ-10] 100 mg Capsule
200 mg PO QPM
finasteride 5 mg Tablet
5 mg PO DAILY
nitroglycerin 0.4 mg tablet, sublingual
0.4 mg sublingual [id number] PRN (Reason: chest pain)
donepezil 5 mg Tablet
5 mg PO HS
clopidogrel [Plavix] 75 mg Tablet
75 mg PO DAILY
ezetimibe [Zetia] 10 mg Tablet
10 mg PO DAILY
divalproex 250 mg Tablet Extended Release 24 Hr
500 mg PO HS
Praluent Pen 75 mg/mL Pen Injector
75 mg SC Q14D
citalopram [Celexa] 40 mg Tablet
40 mg PO DAILY
docusate sodium [Colace] 100 mg Capsule
100 mg PO DAILY
cholecalciferol (vitamin D3) [Vitamin D3] 50 mcg (2,000 unit) Capsule
50 mcg PO HS
multivitamin Tablet
1 tab PO HS
carbidopa-levodopa 25-100 mg Tablet
1 tab PO HS
Discontinued
metoprolol succinate 25 mg tablet extended release 24 hr
25 mg PO HS
spironolactone 50 mg tablet
25 mg PO DAILY
Discharge Orders:
Discharge Patient (As Directed); Ordered 06/19/24
Ordered By: Enrrique Burkett
Care Plan Goals
Care Plan Goals:
Problem: Readiness for enhanced knowledge related to diagnosis and treatment plan
Goal: Understand your diagnosis and treatment plan needs, including medications if applicable.
Instructions: Know your diagnosis, underlying causes and treatment plan options, including medications if applicable. Consult with your health care team to learn about your diagnosis and treatment plan, including medications if applicable.
Discharge Date and Time
Discharge Date/Time: 06/19/24 13:44
Print Language: COOK ISLAND[place]
[2024-06-19] MEDS: TOPROL XL 12.5 MG PO (11:00)
[2024-06-19 11:23] VITALS: BP 108/49
--- NOTE | 2024-06-19 12:38 | PTCARENOTE ---
Telephoned [facility] with report, patient transferred with his belongings to the facility.
--- NOTE | 2024-06-20 11:02 | W.HF.CON ---
Heart Failure
- LV Function
Left ventricular function study result: LV Ejection fraction 41-49%
Ejection Fraction Percentage: 45-50
- ARNI
Patient already on ARNI: No
Heart Failure ARNI Contraindication: Hypotension
- ACEI/ARB
Patient already on ACEI/ARB: Yes
- Beta Willow
Patient already on Evidence Based Beta Willow: Yes
- Mineralocorticord Receptor Antagonist
Patient already on MRA: Yes
- SGLT-2 Inhibitor
Patient already on SGLT-2 Inhibitor: Yes
- NYHA CHF Classification
NYHA CHF Classification Level: Class III - Symptoms w/ min exertion, interferes w/ nml daily activity
- ACC/AHA Stage
ACC/AHA Stage: Stage C: Symptomatic Heart Failure
== END 2024-06-19 13:44 | DRG 56 ==
LOC: IVU 20:51
PROVIDERS: Internal Medicine; Nurse Practitioner; ADMITTING PHYSICIAN Internal Medicine; ATTENDING PHYSICIAN Internal Medicine; CONSULT PHYSICIAN Internal Medicine; EMERGENCY PHYSICIAN Emergency Medicine; FAMILY PHYSICIAN Internal Medicine Geriatric Medicine
DX: G20.A1 Parkinson's disease without dyskinesia, without mention of fluctuations (principal); I50.23 Acute on chronic systolic (congestive) heart failure; I11.0 Hypertensive heart disease with heart failure; E11.9 Type 2 diabetes mellitus without complications; I25.10 Atherosclerotic heart disease of native coronary artery without angina pectoris; E03.9 Hypothyroidism, unspecified; E26.9 Hyperaldosteronism, unspecified; E78.00 Pure hypercholesterolemia, unspecified; F02.80 Dementia in other diseases classified elsewhere, unspecified severity, without behavioral disturbance, psychotic disturbance, mood disturbance, and anxiety; I35.0 Nonrheumatic aortic (valve) stenosis; I25.5 Ischemic cardiomyopathy; I34.0 Nonrheumatic mitral (valve) insufficiency; I45.10 Unspecified right bundle-branch block; R29.6 Repeated falls; N40.0 Benign prostatic hyperplasia without lower urinary tract symptoms; Z95.5 Presence of coronary angioplasty implant and graft; Z87.891 Personal history of nicotine dependence; Z86.73 Personal history of transient ischemic attack (TIA), and cerebral infarction without residual deficits; Z85.820 Personal history of malignant melanoma of skin; Z79.899 Other long term (current) drug therapy; Z79.02 Long term (current) use of antithrombotics/antiplatelets; Z79.890 Hormone replacement therapy; Z11.52 Encounter for screening for COVID-19
CPT/HCPCS: 70450; 71046; 72110; 80048; 80053; 80061; 80164; 81003; 83036; 83880; 84443; 84484; 85025; 85027; 87811; 93005; 97110; 97112; 97163; 97167; 99285

== ENCOUNTER 2024-12-05 16:08 | Emergency (ER) | payer MEDICARE, OTHER, SELFPAY ==
[2024-12-05 16:12] VITALS: BP 145/83
[2024-12-05 17:57] VITALS: BP 160/101
[2024-12-05 17:58] VITALS: BP 160/101
[2024-12-05 18:00] VITALS: BP 161/87
[2024-12-05 18:02] VITALS: BMI 26.2
--- NOTE | 2024-12-05 18:18 | ED.GENMED ---
History of Present Illness
<Odalis Packer PA-C - Last Filed: 12/05/24 23:51>
General
Chief Complaint: Eye Problems
Source: patient and family
Exam Limitations: none
Time Seen by Provider: 12/05/24 18:00
History of Present Illness
History of Present Illness:
79yoM with a history of melanoma, coronary artery disease s/p PCI, Parkinson's disease, hypertension, hyperlipidemia, and prior TIA presenting with his for an eye concern. Patient had several doctors appointments yesterday and was unable to
take a nap during the day. He slept for 13 hours overnight. When he woke up this morning, noticed that his left eye was turned inward. She spoke with his eye doctor and was told to go to the ED for a possible stroke. states these eye
symptoms are intermittent. Patient himself denies any complaints. Specifically, he denies any diplopia, blurred vision, eye pain, headache, dizziness, weakness, speech disturbance, balance issues. is worried because he is supposed to stop
his Plavix tomorrow in anticipation of a procedure next week at [facility].
Past History
<Odalis Packer PA-C - Last Filed: 12/05/24 23:51>
Past History
ED Past Medical History: CAD, HTN and Hypercholesterolemia
ED Past Surgical History: Cardiac (PTCA with stents) and Orthopedic ((had laminectomy last month, Dr. Santillan).)
Social History
Tobacco: Non-smoker
Alcohol: Occasional
Drug: None
Personal:
Living: with family
Employment: Retired
Family History
Family History: Other (Noncontributory)
Phy Exam
<Odalis Packer PA-C - Last Filed: 12/05/24 23:51>
General Physical Exam
General Presentation: well appearing and no apparent distress
General Skin: warm and dry
General Habitus: normal
General Mental: alert
ENT Exam
ENT Exam: normocephalic
Eye Exam
Eye Exam: PERRL, EOMI, conjunctiva normal, visual omalley normal and other (No objective eye deviation noted. PERRL. EOMs are intact without evidence of cranial nerve palsy. Visual omalley intact.)
Pulmonary Exam
Pulmonary Exam: no respiratory distress
Neurological Exam
Neurological Exam: alert, CN II-XII intact, no motor deficits, no sensory deficits, speech normal and cerebellum intact
NIH Stroke Score
Level of Consciousness: 0 - Alert
LOC questions: 0-Answers both correctly
LOC Commands: 0-Performs both correctly
Best Gaze: 0-Normal
Visual Omalley: 0=Normal, no visual loss
Facial palsy: 0=Normal, symmetrical
Motor - Right Arm: 0=No drift 10 seconds
Motor - Left Arm: 0=No drift 10 seconds
Motor - Right Le-No drift 5 seconds
Motor - Left Le-No drift 5 seconds
Limb Ataxia: 0-Absent
Sensation: 0-Normal
Best Language: 0-No aphasia
Dysarthria: 0-Normal
Extinction and Inattention: 0-No abnormality
Total Score:: 0
Yordy Coma Scale
Eye Opening: Spontaneous
Verbal Response: Oriented
Motor Response: Obeys Commands
GCS Total Score: 15
Skin Exam
Skin Exam: normal color and warm/dry
Psychiatric Exam
Psychiatric Exam: normal mood/affect
Course
<Odalis Packer PA-C - Last Filed: 12/05/24 23:51>
Orders/Labs/Results
Orders:
Orders
12/05/24 16:[address] [CT Head W/o Iv Contrast] Urgent
Comment:
Reason For Exam: R eye crossed.
Vital Signs
Initial and Last Documented VS:
Initial Vital Signs
Temp Pulse Resp BP Pulse Ox
97.8 F 66 16 145/83 98
12/05/24 16:12 12/05/24 16:12 12/05/24 16:12 12/05/24 16:12 12/05/24 16:12
Last Documented Vital Signs
Temp Pulse Resp BP Pulse Ox
98.3 F 60 18 156/101 97
12/05/24 18:00 12/05/24 17:58 12/05/24 17:58 12/05/24 19:00 12/05/24 18:58
<Maren Dickson DO - Last Filed: 12/05/24 19:51>
Orders/Labs/Results
Orders:
Orders
12/05/24 16:[address] [CT Head W/o Iv Contrast] Urgent
Comment:
Reason For Exam: R eye crossed.
Vital Signs
Initial and Last Documented VS:
Initial Vital Signs
Temp Pulse Resp BP Pulse Ox
97.8 F 66 16 145/83 98
12/05/24 16:12 12/05/24 16:12 12/05/24 16:12 12/05/24 16:12 12/05/24 16:12
Last Documented Vital Signs
Temp Pulse Resp BP Pulse Ox
98.3 F 60 18 156/101 97
12/05/24 18:00 12/05/24 17:58 12/05/24 17:58 12/05/24 19:00 12/05/24 18:58
<Odalis Packer PA-C - Last Filed: 12/05/24 23:51>
MDM/Problems Addressed
Differential Diagnosis Includes:
79yoM presenting for eye problem. concerned that L eye was turning inward this morning. Patient denies complaints and has no visual disturbance. No cranial nerve palsy noted on exam and extraocular movements are intact. NIHSS 0. Very low
clinical suspicion for acute CVA. Patient also evaluated by Dr. Dickson. Suspect that symptoms may be related to his Parkinson's disease. He was advised to f/u with his ophthlamologist and return to the ED with any new or worsening symptoms.
<Odalis Packer PA-C - Last Filed: 12/05/24 23:51>
*Pulse Oximetry
SaO2: 99
Oxygen Mode of Delivery: Room air
Patient hypoxic: no (98%)
*Critical Care Note
Total Time (30-74mins, 75-104mins- exclusive of procedures): Not Applicable
ED Attending Note
<Odalis Packer PA-C - Last Filed: 12/05/24 23:51>
-
Portions of this chart may have been created with voice recognition software.� Occasional wrong word or��sound alike� substitutions may have occurred due to the inherent limitations of voice recognition software.
<Maren Dickson DO - Last Filed: 12/05/24 19:51>
ED Attending Note
Patient seen and examined by attending physician: Yes
I performed the substantive portion of visit, reviewed & personally made and approve the management plan that is documented in note by myself or MIGEL.: Yes
I performed a history and physical exam of patient and discussed management with resident, I reviewed resident's note and agree with documented findings and plan of care.: Yes
ED Attending Note:
79-year-old male with history of Parkinson's, CHF, dementia, and history of TIA on Plavix presenting for concern of ocular issue. Patient arrives with who notes earlier today she noticed that the left eye was turning more inward, intermittent.
She called the eye doctor who advised that she bring him to the hospital for rule out stroke. Patient himself denies any concern already his eyes, denies any visual changes, weakness or numbness to extremities. Does note that he has had a 'mini
stroke 'in the past, however had no symptoms from it, was found incidentally on imaging. also notes that patient had an MRI of his head on November 22, without abnormality. Patient denies additional acute medical complaints. Vital signs are
significant for mild hypertension.
On exam patient is resting comfortably, no acute distress or discomfort. On my ocular exam, pupils are equal and reactive and extraocular movements are intact. No apparent sign of ocular palsy. Peripheral omalley are intact and equal strength and
sensation bilaterally. Patient had CT imaging prior to my assessment, without acute abnormality. Without present concern for acute pathology given absence of any symptoms or obvious deficits to the extraocular movements. notes that she does
feel like it is better now. Possible mild ophthalmoplegia from underlying Parkinson's. Lower suspicion for acute stroke. Patient made an appoint with his eye doctor on Monday which I encouraged he maintain for full ocular exam. Otherwise feel
stable for discharge. Did discuss return precautions with patient and at bedside including any increased abnormality to ocular movements, or additional acute neurologic symptoms. They verbalized understanding
Discharge Plan
Departure
Patient Disposition: Home (Routine Discharge)
Date of Disposition: 12/05/24
Time of Disposition: 19:12
Patient with high blood pressure during this ER visit?: Yes
Discharge Problem:
Eye problem
Instructions: Eyestrain
Prescriptions:
No Action
levothyroxine 50 MCG tablet
50 mcg PO DAILY AT 0700
pravastatin 80 mg Tablet
80 mg PO HS
tamsulosin 0.4 mg Capsule
0.4 mg PO HS
carbidopa-levodopa 25-100 mg Tablet
2 tab PO BID@0800,1500
coenzyme Q10 [CoQ-10] 100 mg Capsule
200 mg PO QPM
finasteride 5 mg Tablet
5 mg PO DAILY
nitroglycerin 0.4 mg tablet, sublingual
0.4 mg sublingual [id number] PRN (Reason: chest pain)
donepezil 5 mg Tablet
5 mg PO HS
clopidogrel [Plavix] 75 mg Tablet
75 mg PO DAILY
ezetimibe [Zetia] 10 mg Tablet
10 mg PO DAILY
divalproex 250 mg Tablet Extended Release 24 Hr
500 mg PO HS
Praluent Pen 75 mg/mL Pen Injector
75 mg SC Q14D
citalopram [Celexa] 40 mg Tablet
40 mg PO DAILY
docusate sodium [Colace] 100 mg Capsule
100 mg PO DAILY
cholecalciferol (vitamin D3) [Vitamin D3] 50 mcg (2,000 unit) Capsule
50 mcg PO HS
multivitamin Tablet
1 tab PO HS
carbidopa-levodopa 25-100 mg Tablet
1 tab PO HS
furosemide 40 mg Tablet
40 mg PO DAILY Qty: 0 0RF
metoprolol succinate 25 mg Tablet Extended Release 24 Hr
12.5 mg PO BID Qty: 0 0RF
spironolactone 50 mg Tablet
50 mg PO DAILY Qty: 0 0RF
valsartan 40 mg Tablet
40 mg PO DAILY Qty: 0 0RF
dapagliflozin propanediol 10 mg Tablet
10 mg PO DAILY Qty: 0 0RF
Referrals:
Olvin Gibson MD [Family Provider, Internal Medicine]
Activity Restrictions/Additional Instructions:
Please follow-up with your eye doctor. Return to the ER with any new or worsening symptoms.
Interventions
Interventions:
*Risk Screen - Suicide Last Done: 12/05/24 16:12
*General Assessment Last Done: 12/05/24 18:34
*Neglect/Abuse Screening Last Done: 12/05/24 16:12
*ED- Fall Risk Assessment Last Done: 12/05/24 16:12
*ED COVID-19 Vaccine History Last Done: 12/05/24 18:34
*Nursing Disposition Last Done: 12/05/24 19:37
Discharge Date and Time
Discharge Date/Time: 12/05/24 19:47
Print Language: PARAGUAYAN
[2024-12-05 19:00] VITALS: BP 156/101
== END 2024-12-05 19:47 | disposition home or self-care (01) ==
LOC: EMR 16:08
PROVIDERS: EMERGENCY PHYSICIAN Student in an Organized Health Care Education/Training Program; FAMILY PHYSICIAN Internal Medicine Geriatric Medicine
DX: H57.89 Other specified disorders of eye and adnexa (principal); I25.10 Atherosclerotic heart disease of native coronary artery without angina pectoris; I11.0 Hypertensive heart disease with heart failure; I50.9 Heart failure, unspecified; E78.00 Pure hypercholesterolemia, unspecified; G20.A1 Parkinson's disease without dyskinesia, without mention of fluctuations; Z86.73 Personal history of transient ischemic attack (TIA), and cerebral infarction without residual deficits; Z95.5 Presence of coronary angioplasty implant and graft; Z79.02 Long term (current) use of antithrombotics/antiplatelets
CPT/HCPCS: 99284; 70450

== ENCOUNTER 2025-02-06 23:58 | Inpatient (IN) | payer MEDICARE, OTHER, SELFPAY ==
[2025-02-06] VITALS (10 sets, daily range): BP systolic 152–191; BP diastolic 93–130; BMI 26.4
[2025-02-06 18:38] LABS: Hematocrit 44.9 % (39.0-52.0); Hemoglobin 15.0 g/dL (13.0-18.0); Mean Corp Hgb Conc. 33.4 g/dL (33.0-37.0); Mean Corpuscular Volume 85.9 fL (80.0-94.0); Nucleated Red Blood Cells % 0 % (-); Platelet Count 208 10^3/uL (130-400); Red Cell Dist. Width 14.6 % (11.5-14.5)
[2025-02-06 18:51] LABS: ALT (SGPT) 112 U/L (0-50); AST (SGOT) 207 U/L (17-59); Albumin 3.7 g/dl (3.5-5.0); Alkaline Phosphatase 67 U/L (38-126); Blood Urea Nitrogen 19 mg/dl (9-20); Calcium 9.4 mg/dl (8.4-10.2); Carbon Dioxide 29 mmol/L (22-30); Chloride 106 mmol/L (98-107); Glucose 169 mg/dl (70-99); Potassium 3.3 mmol/L (3.5-5.1); Sodium 138 mmol/L (135-145); Total Protein 6.1 g/dl (6.3-8.2); eGFR > 60.00
[2025-02-06 19:01] LABS: Troponin I 3.100 ng/ml
[2025-02-06] MEDS: KCL 40 MEQ PO (19:58)
[2025-02-06] MEDS: LOW STRENGTH ASPIRIN 324 MG PO (19:58)
--- NOTE | 2025-02-06 20:02 | ED.GENMED ---
History of Present Illness
<Edi Schneider PA-C - Last Filed: 02/06/25 23:09>
General
Chief Complaint: Breathing Problem
Source: patient
Exam Limitations: none
Time Seen by Provider: 02/06/25 19:42
History of Present Illness
History of Present Illness:
79-year-old male with history of CHF, Lewy body dementia, Parkinson's on Plavix and aspirin as well as Lasix. Presents with increasing shortness of breath over the past several days. Lasix was increased as an outpatient to 40 mg from 20 mg daily.
He describes orthopnea. He denies chest pain. He notes shortness of breath with minimal exertion. No known weight gain. No other complaints
Past History
<Edi Schneider PA-C - Last Filed: 02/06/25 23:09>
Past History
ED Past Medical History: CAD, HTN and Hypercholesterolemia
ED Past Surgical History: Cardiac (PTCA with stents) and Orthopedic ((had laminectomy last month, Dr. Santillan).)
Social History
Tobacco: Non-smoker
Alcohol: Occasional
Drug: None
Personal:
Living: with family
Employment: Retired
Family History
Family History: Other (Noncontributory)
Phy Exam
<Edi Schneider PA-C - Last Filed: 02/06/25 23:09>
Physical Exam
Physical Exam:
General: Well-developed male with increased work of breathing
HEENT: Normal cephalic atraumatic
Heart: Regular rate and rhythm
Lungs: Slightly tachypneic and Rales at the bases
Extremities pitting edema bilateral lower extremities
Scores
<Edi Schneider PA-C - Last Filed: 02/06/25 23:09>
Heart Failure Risk
Heart Failure Risk Score: Not Applicable
Course
<Edi Schneider PA-C - Last Filed: 02/06/25 23:09>
Orders/Labs/Results
Orders:
Orders
02/06/25 18:04
Electrocardiogram (*1) Urgent
Reason for Study: Shortness of Breath
EKG- Treatment ONCE
02/06/25 18:09
Electrocardiogram (*1) Urgent
Reason for Study: Shortness of Breath
EKG- Treatment ONCE
02/06/25 18:21
Complete Blood Count/With Diff Urgent
Comprehensive Metabolic Panel Urgent
Pro-BNP [NT-proBNP] Urgent
Troponin I Urgent
02/06/25 19:51
CR Chest Portable - 1 View Urgent
Comment:
Reason For Exam: sob
Reason Study Needs to be Portable: Unable to Transport
02/06/25 19:52
Potassium Chloride [KCl] 40 meq PO NOW STA
02/06/25 19:54
Aspirin Chewable [Low Strength Aspirin] 324 mg PO NOW STA
02/06/25 19:55
Nitroglycerin Ointment [Nitro-Bid] 1 inch TOPICAL NOW STA
02/06/25 21:03
CT Chest PE Study Urgent
Comment:
Reason For Exam: sob
02/06/25 21:35
Troponin I Urgent
02/06/25 22:46
PTT Urgent
Comment: Obtain baseline before beginning heparin infusion if not already collected
Heparin 4,000 units IV NOW STA
Pharmacy Request to Place See Dose Instructions PO NOW STA
Discontinue all Active Warfarin orders?: Yes
Nursing to Place Non Medication Order As Directed
Physician Order: PTT 6 hours after initial start of Heparin infusion
02/06/25 22:50
Furosemide [Lasix] 40 mg IV NOW STA
02/06/25 23:00
Heparin 99468 Units/250 ml 25,000 units in 250 ml IV PER PROTOCOL
Weight to be used for heparin protocol in kilograms (kg):: 78.6
Protocol:: Cardiac Tx/Acute Coronary
PTT Goal Range to be used:: PTT 73 to 111 seconds
Order type:: Initial
INITIAL Infusion Dose (UNITS/KG/hr) & then follow protocol:: 12 units/kg/hr
Infusion Dose in UNITS/hr & then follow protocol (UNITS/hr):: 950
INFUSION RATE in mL/hr & then follow protocol (mL/hr):: 9.5
PTT less than or equal to 64 seconds:: Increase rate by 200 units/hr (+ 2 mL/hr)
PTT 64.1 to 72.9 seconds:: Increase rate by 100 units/hr (+ 1 mL/hr)
PTT 73 to 111 seconds:: Target Range. No change in rate.
PTT 111.1 to 130.9 seconds:: Decrease rate by 100 units/hr (- 1 mL/hr)
PTT 131 to 199.9 seconds:: HOLD for 1 hr. Then decrease rate by 200 units/hr (- 2 mL/hr)
PTT greater than or equal to 200 seconds:: HOLD for 2 hrs & Notify Provider. Then decrease by 200 units/hr (-
2 mL/hr)
Lab follow-up:: Each change, PTT q6h until 2 consecutive are therapeutic. Then PTT
daily.
Pharmacy Request to Place See Dose Instructions IV DIRECTED
Abnormal Lab Results
02/06/25 02/06/25
18:21 21:35
RDW 14.6 H %
(11.5-14.5)
Absolute Lymphs (auto) 0.9 L 10^3/uL
(1.2-3.4)
Absolute Monos (auto) 0.8 H 10^3/uL
(0.1-0.6)
Lymphocytes % 12.6 L %
(20.5-51.1)
Monocytes % 10.8 H %
(1.7-9.3)
Potassium 3.3 L mmol/L
(3.5-5.1)
Glucose 169 H mg/dl
(70-99)
AST 207 H U/L
(17-59)
ALT 112 H U/L
(0-50)
Troponin I 3.100 H* ng/ml 3.270 H* ng/ml
Total Protein 6.1 L g/dl
(6.3-8.2)
02/06/25 18:21
02/06/25 18:21
Vital Signs
Initial and Last Documented VS:
Initial Vital Signs
Temp Pulse Resp BP Pulse Ox
98.8 F 67 18 161/93 98
02/06/25 18:05 02/06/25 18:05 02/06/25 18:05 02/06/25 18:05 02/06/25 18:05
Last Documented Vital Signs
Temp Pulse Resp BP Pulse Ox
98.8 F 102 28 178/120 98
02/06/25 18:05 02/06/25 20:45 02/06/25 20:45 02/06/25 20:26 02/06/25 20:45
<Isrrael Velasquez MD - Last Filed: 02/06/25 21:43>
Orders/Labs/Results
Orders:
Orders
02/06/25 18:04
Electrocardiogram (*1) Urgent
Reason for Study: Shortness of Breath
EKG- Treatment ONCE
02/06/25 18:09
Electrocardiogram (*1) Urgent
Reason for Study: Shortness of Breath
EKG- Treatment ONCE
02/06/25 18:21
Complete Blood Count/With Diff Urgent
Comprehensive Metabolic Panel Urgent
Pro-BNP [NT-proBNP] Urgent
Troponin I Urgent
02/06/25 19:51
CR Chest Portable - 1 View Urgent
Comment:
Reason For Exam: sob
Reason Study Needs to be Portable: Unable to Transport
02/06/25 19:52
Potassium Chloride [KCl] 40 meq PO NOW STA
02/06/25 19:54
Aspirin Chewable [Low Strength Aspirin] 324 mg PO NOW STA
02/06/25 19:55
Nitroglycerin Ointment [Nitro-Bid] 1 inch TOPICAL NOW STA
02/06/25 21:03
CT Chest PE Study Urgent
Comment:
Reason For Exam: sob
02/06/25 21:35
Troponin I Urgent
02/06/25 22:46
PTT Urgent
Comment: Obtain baseline before beginning heparin infusion if not already collected
Heparin 4,000 units IV NOW STA
Pharmacy Request to Place See Dose Instructions PO NOW STA
Discontinue all Active Warfarin orders?: Yes
Nursing to Place Non Medication Order As Directed
Physician Order: PTT 6 hours after initial start of Heparin infusion
02/06/25 22:50
Furosemide [Lasix] 40 mg IV NOW STA
02/06/25 23:00
Heparin 02921 Units/250 ml 25,000 units in 250 ml IV PER PROTOCOL
Weight to be used for heparin protocol in kilograms (kg):: 78.6
Protocol:: Cardiac Tx/Acute Coronary
PTT Goal Range to be used:: PTT 73 to 111 seconds
Order type:: Initial
INITIAL Infusion Dose (UNITS/KG/hr) & then follow protocol:: 12 units/kg/hr
Infusion Dose in UNITS/hr & then follow protocol (UNITS/hr):: 950
INFUSION RATE in mL/hr & then follow protocol (mL/hr):: 9.5
PTT less than or equal to 64 seconds:: Increase rate by 200 units/hr (+ 2 mL/hr)
PTT 64.1 to 72.9 seconds:: Increase rate by 100 units/hr (+ 1 mL/hr)
PTT 73 to 111 seconds:: Target Range. No change in rate.
PTT 111.1 to 130.9 seconds:: Decrease rate by 100 units/hr (- 1 mL/hr)
PTT 131 to 199.9 seconds:: HOLD for 1 hr. Then decrease rate by 200 units/hr (- 2 mL/hr)
PTT greater than or equal to 200 seconds:: HOLD for 2 hrs & Notify Provider. Then decrease by 200 units/hr (-
2 mL/hr)
Lab follow-up:: Each change, PTT q6h until 2 consecutive are therapeutic. Then PTT
daily.
Pharmacy Request to Place See Dose Instructions IV DIRECTED
Abnormal Lab Results
02/06/25 02/06/25
18:21 21:35
RDW 14.6 H %
(11.5-14.5)
Absolute Lymphs (auto) 0.9 L 10^3/uL
(1.2-3.4)
Absolute Monos (auto) 0.8 H 10^3/uL
(0.1-0.6)
Lymphocytes % 12.6 L %
(20.5-51.1)
Monocytes % 10.8 H %
(1.7-9.3)
Potassium 3.3 L mmol/L
(3.5-5.1)
Glucose 169 H mg/dl
(70-99)
AST 207 H U/L
(17-59)
ALT 112 H U/L
(0-50)
Troponin I 3.100 H* ng/ml 3.270 H* ng/ml
Total Protein 6.1 L g/dl
(6.3-8.2)
02/06/25 18:21
02/06/25 18:21
Vital Signs
Initial and Last Documented VS:
Initial Vital Signs
Temp Pulse Resp BP Pulse Ox
98.8 F 67 18 161/93 98
02/06/25 18:05 02/06/25 18:05 02/06/25 18:05 02/06/25 18:05 02/06/25 18:05
Last Documented Vital Signs
Temp Pulse Resp BP Pulse Ox
98.8 F 102 28 178/120 98
02/06/25 18:05 02/06/25 20:45 02/06/25 20:45 02/06/25 20:26 02/06/25 20:45
<Edi Schneider PA-C - Last Filed: 02/06/25 23:09>
MDM/Problems Addressed
Differential Diagnosis Includes:
Patient with shortness of breath. On exam does appear volume overloaded. He is slightly tachypneic on exam. BNP elevated troponin is elevated as well. Patient is not having chest pain. I suspect CHF with elevated BNP. Blood pressure is
elevated here. Nitroglycerin ordered. Patient is slightly hypokalemic. Will order potassium and patient may require additional IV Lasix once potassium is repleted. Discussed with emergency room attending. Will require admission
<Edi Schneider PA-C - Last Filed: 02/06/25 23:09>
*Pulse Oximetry
SaO2: 98
Oxygen Mode of Delivery: Room air
Patient hypoxic: no
*Critical Care Note
Total Time (30-74mins, 75-104mins- exclusive of procedures): Not Applicable
<Edi Schneider PA-C - Last Filed: 02/06/25 23:09>
Update Note
Update Note:
Echocardiogram from May of this year showed an ejection fraction of 40-45%
Troponins were elevated here at 3.1. BNP elevated. Chest x-ray reviewed without significant finding. PE study of the chest was performed secondary to elevated troponin increased work of breathing. No obvious large infarct. Will admit for CHF
and possible non-STEMI. Heparin ordered nitro and and Lasix were ordered after potassium was replaced
ED Attending Note
<Edi Schneider PA-C - Last Filed: 02/06/25 23:09>
-
Portions of this chart may have been created with voice recognition software.� Occasional wrong word or��sound alike� substitutions may have occurred due to the inherent limitations of voice recognition software.
<Isrrael Velasquez MD - Last Filed: 02/06/25 21:43>
ED Attending Note
Patient seen and examined by attending physician: Yes
ED Attending Note:
I have seen and evaluated the patient with a [id number] encounter. I have spoken to the advance practicer provider and involved in the medical history, the physical exam, medical decision making.
Evaluation and management service: agree unless noted differently below.
Results interpretation: agree unless noted differently below.
Focused HPI: 79-year-old male with history of frontotemporal dementia, Parkinson's disease, melanoma, CAD, hypertension, hyperlipidemia presents to the ER for evaluation of shortness of breath. He is accompanied by his who provides some
collateral history as patient is somewhat of a poor historian. It sounds like he has been complaining of some shortness of breath over the past few weeks. He has been having issues with orthopnea. He has had some increase swelling in his legs.
He has been receiving immunotherapy at [facility] for melanoma. He follows with Dr. Kraft for cardiology. It sounds like a few days ago Lasix was increased because of his symptoms but despite this symptoms progressed which
prompted ER visit tonight. He denies any chest pain. Denies any cough or fever.
Physical exam: Awake and alert. Hypertensive, tachypneic but not hypoxic. No fever. Heart rate 90s on my assessment. Faint systolic murmur. Very faint rales at the lung bases. Bilateral lower extremity edema noted. No JVD noted.
Medical Decision Makin-year-old male presents for evaluation of shortness of breath and orthopnea over the past few weeks. This is despite increased Lasix on as an outpatient. Overall suspect likely CHF. He is hypertensive will treat with
nitroglycerin. Labs were sent off including a CBC and a CMP�CMP showed hypokalemia and we will replete this prior to administering Lasix. Mild transaminitis likely from vascular congestion. proBNP greater than 5000 consistent with CHF. This
troponin is elevated consistent with NSTEMI will plan to treat with aspirin and heparinize. We sent for a CT chest given his troponin elevation cancer history and this showed no signs of PE. Will admit to the hospitalist for continued management.
Discharge Plan
Departure
Patient Disposition: Admit
Date of Disposition: 02/06/25
Time of Disposition: 23:09
Presentation/result/management discussed w/ accepting MD/DO: Hospitalist
Discharge Problem:
CHF (congestive heart failure), Non-ST elevation IA (NSTEMI)
Prescriptions:
No Action
pravastatin 80 mg Tablet
80 mg PO HS
tamsulosin 0.4 mg Capsule
0.4 mg PO HS
carbidopa-levodopa 25-100 mg Tablet
2 tab PO BID@0800,1500
coenzyme Q10 [CoQ-10] 100 mg Capsule
200 mg PO QPM
finasteride 5 mg Tablet
5 mg PO DAILY
nitroglycerin 0.4 mg tablet, sublingual
0.4 mg sublingual [id number] PRN (Reason: chest pain)
clopidogrel [Plavix] 75 mg Tablet
75 mg PO DAILY
ezetimibe [Zetia] 10 mg Tablet
10 mg PO DAILY
divalproex 250 mg Tablet Extended Release 24 Hr
500 mg PO HS
Praluent Pen 75 mg/mL Pen Injector
75 mg SC Q14D
citalopram [Celexa] 40 mg Tablet
40 mg PO DAILY
docusate sodium [Colace] 100 mg Capsule
100 mg PO Q48H
cholecalciferol (vitamin D3) [Vitamin D3] 50 mcg (2,000 unit) Capsule
50 mcg PO DAILY
multivitamin Tablet
1 tab PO HS
furosemide 40 mg Tablet
40 mg PO DAILY Qty: 0 0RF
dapagliflozin propanediol 10 mg Tablet
10 mg PO DAILY Qty: 0 0RF
acetaminophen [Tylenol] 325 mg Tablet
650 mg PO Q6HPRN PRN (Reason: mild pain)
donepezil 10 mg Tablet
10 mg PO HS
spironolactone 25 mg Tablet
12.5 mg PO DAILY
losartan 25 mg Tablet
25 mg PO DAILY
Rexulti 1 mg Tablet
2 mg PO QPM
levothyroxine [Synthroid] 100 mcg Tablet
100 mcg PO SUSA
levothyroxine [Synthroid] 50 mcg Tablet
50 mcg PO [id number]
Referrals:
Olvin Gibson MD [Family Provider, Internal Medicine]
Interventions
Interventions:
*Risk Screen - Suicide Last Done: 02/06/25 18:05
*General Assessment Last Done: 02/06/25 18:05
*Neglect/Abuse Screening Last Done: 02/06/25 18:05
*ED- Fall Risk Assessment Last Done: 02/06/25 20:06
*ED COVID-19 Vaccine History Last Done: 02/06/25 20:06
ED- Cardiac Assessment Last Done: 02/06/25 20:06
ED- Pulmonary Assessment Last Done: 02/06/25 20:06
Discharge Date and Time
Print Language: HAITIAN
[2025-02-06] MEDS: NITRO-BID 1 INCH TOPICAL (20:26)
[2025-02-06 22:17] LABS: Troponin I 3.270 ng/ml
[2025-02-06] MEDS: LASIX 40 MG IV (23:25)
--- NOTE | 2025-02-06 23:27 | HPS.HSE ---
Family Physician
-
Family Physician: Olvin Gibson
Chief Complaint
-
Shortness of breath
History of Present Illness
This is a 79-year-old who has a past medical history significant for congestive heart failure with EF that is mildly reduced at 25 to 50%, fis-gmsaylv-poiwmigyf diabetes, hypertension, BPH, prior history of NSTEMI, hypothyroid, hyperlipidemia
presenting to the emergency department with worsening shortness of breath over the last 2 weeks.
Patient reported that he has been feeling dyspnea on exertion and even shortness of breath at rest over the last 2 weeks. He reports has been progressive. He reports that he feels he cannot catch his breath. He reports that when he lays down to
sleep he can hear himself wheeze. He also reports bilateral lower extremity edema that has been increasing over the last 2 weeks. He states his dose of Lasix was increased from 20 mg to 40 mg without any improvement in symptoms. He is not aware
of any acute weight gain. He denies any chest pain. He denies any episode of severe diaphoresis or sensation of chest heaviness. Patient denies any sick contacts. Denies any cough cold or flulike symptoms. Denies any recent changes in his
medications.
On arrival in the emergency department he was hypertensive to 178/120 with a pulse rate of 102 and he was satting 98% on room air. ECG shows a normal sinus rhythm at a rate of 97 with a right bundle which is unchanged compared to prior except for
increased duration. There is mild J-point elevation. Troponin was elevated at 3.27. BNP was 5300. CBC was unremarkable. Electrolytes BUN and creatinine went well for a potassium of 3.3 but otherwise unremarkable. Chest x-ray shows no acute
infiltrates but cannot exclude small/tiny bilateral pleural effusions.
CT: No evidence of central pulmonary embolism. Cardiomegaly with coronary artery calcifications and/or stents. Tiny bilateral pleural effusions with accompanying bilateral lower lobe subsegmental atelectasis. Two small low-attenuation right
adrenal lesions without significant change from prior abdomen CT, most likely benign adenomas.
Medical History
Past Medical History
Past Medical History: Reports Other
Additional Past Medical History:
PTCA with stents
laminectomy last month, Dr. Santillan
Type 2 diabetes mellitus without long-term current use of insulin
Benign prostatic hyperplasia with lower urinary tract symptoms
Hyperlipidemia
Essential (primary) hypertension
hyperaldosteronism
Former smoker
Allergic rhinitis
Hypercholesterolemia
History of coronary artery stent placement
Gynecomastia
Hyperaldosteronism
Age-related nuclear cataract, bilateral
Hypertension secondary to other renal disorders
Stented coronary artery
Incomplete right bundle branch block
Essential hypertension
Dyslipidemia
Cervical spinal cord compression
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
Parkinson disease, symptomatic
Atherosclerotic heart disease
History of laminectomy
Primary osteoarthritis of right hip
Alzheimer's disease, unspecified
Major depressive disorder,
Past Surgical History: Reports Other
Additional Past Surgical History:
See above
Social History
Tobacco: Non-smoker
Alcohol: None
Drug: None
Personal:
Living: With Family
Family History
Family History: Not pertinent
Allergies / Home Medications
Allergies reflects when Allergies were last updated in [employer].
Home Medications with original date entered in [employer]
Allergy/Medication List:
Allergies
Allergy/AdvReac Type Severity Reaction Status Date / Time
pollen extracts Allergy SEASONAL-SNEEZING, Verified 06/14/24 15:28
RUNNY NOSE
Home Medications
levothyroxine 50 mcg tablet 50 mcg PO DAILY AT 0700 Thyroid 02/10/20
carbidopa 25 mg-levodopa 100 mg tablet 2 tab PO BID@0800,1500 Neurological Condition 02/17/22
coenzyme Q10 100 mg capsule (CoQ-10) 200 mg PO QPM Supplement 02/17/22
pravastatin 80 mg tablet 80 mg PO HS High cholesterol 02/17/22
tamsulosin 0.4 mg capsule 0.4 mg PO HS Urinary issue 02/17/22
finasteride 5 mg tablet 5 mg PO DAILY Urinary Issue 11/04/22
metoprolol succinate 25 mg tablet,extended release 24 hr 25 mg PO BID Blood Pressure 11/04/22
nitroglycerin 0.4 mg sublingual tablet 0.4 mg sublingual [id number] PRN chest pain 11/04/22
spironolactone 50 mg tablet 50 mg PO DAILY 11/04/22
alirocumab 75 mg/mL subcutaneous pen injector (Praluent Pen) 75 mg SC Q14D 06/14/24
aspirin 81 mg tablet,delayed release 81 mg PO DAILY 06/14/24
carbidopa 25 mg-levodopa 100 mg tablet 1 tab PO HS 06/14/24
citalopram 40 mg tablet (Celexa) 40 mg PO DAILY 06/14/24
clopidogrel 75 mg tablet (Plavix) 75 mg PO DAILY 06/14/24
divalproex 250 mg tablet,extended release 24 hr 500 mg PO DAILY 06/14/24
docusate sodium 100 mg capsule (Colace) 100 mg PO DAILY 06/14/24
donepezil 5 mg tablet 5 mg PO HS 06/14/24
ezetimibe 10 mg tablet (Zetia) 10 mg PO DAILY 06/14/24
Review of Systems
-
Constitutional: Reports No Symptoms
EENT: Reports No Symptoms
Respiratory: Reports Trouble Breathing
Cardiac: Reports No Symptoms
Abdomen/GI: Reports No Symptoms
: Reports No Symptoms
Musculoskeletal: Reports No Symptoms
Skin: Reports No Symptoms
Neurological: Reports No Symptoms
Endocrine: Reports No Symptoms
Hematologic/Lymphatic: Reports No Symptoms
Psych: Reports No Symptoms
Physical Exam
Vital Signs
Vital Signs
Temp Pulse Resp BP Pulse Ox
98.8 F 102 28 178/120 98
02/06/25 18:05 02/06/25 20:45 02/06/25 20:45 02/06/25 20:26 02/06/25 20:45
Physical Exam
General: Well Developed, Well Nourished, Comfortable and Conversant
HEENT: NormoCephalic, Nose Appears Normal and Ears Appear Normal; No Oxygen
Respiratory: Clear; No Wheezes, Rales, Rhonchi or Crackles
Cardiac: S1/S2 and Regular Rhythm; No Murmur, Rub or Gallop
GI: Soft, Non Tender and Non Distended
Rectal: Deferred by Provider
Genito-urinary: Deferred by me
Musculoskeletal: No Clubbing, No Cyanosis, Edema, Left Lower Extremity (2+) and Edema, Right Lower Extremity (2+)
Skin: Warm and Dry
Neuro: AO x 3 and Nonfocal/grossly intact
Psych: Calm
Laboratory Results
-
02/06/25 18:21
02/06/25 18:21
Laboratory Results
Total Bilirubin 1.0 mg/dl (0.2-1.3) 02/06/25 18:21
AST 207 U/L (17-59) H 02/06/25 18:21
ALT 112 U/L (0-50) H 02/06/25 18:21
Alkaline Phosphatase 67 U/L (38-126) 02/06/25 18:21
Troponin I 3.270 ng/ml H* 02/06/25 21:35
Data Reviewed
-
Diagnostic Radiology: Image Personally Visualized and interpreted and Report Reviewed by me
CT Scan: Report Reviewed by me
Medical Tests (Nuc Med, Echo, EKG etc): Image Personally Visualized and interpreted
Lab Data: Labs Reviewed by me
Old Records: Reviewed
Impression/Plan
-
IMPRESSION:
79-year-old with past medical history significant for CAD status post NSTEMI with remote stents currently on Plavix, CHF with mildly reduced EF of around 45 to 50%, aortic sclerosis with mild stenosis, aortic valve gradient 15/8 mmHg suggestive of
mild aortic stenosis accompanied with dyspnea on exertion, shortness of breath, orthopnea over the last 2 weeks. No improvement despite increasing his Lasix to 40 mg daily. He has bilateral lower extremity edema, bilateral small pleural effusions
but otherwise no extensive volume overload. Incidentally his troponin was 3.2 although the patient has had no chest pain. He has no signs of an acute infectious process or inflammatory process at this time. Given troponin and worsening heart
failure we will have to consider his NSTEMI. He does not have cardiogenic shock at this time but BNP is elevated to 5000. No evidence of PE on CT scan.
PLAN:
NSTEMI -presumed NSTEMI, possibly infarct sustained several days ago with persistently elevated troponin in the setting of ongoing injury and dilated cardiomyopathy. No chest pain
- Admit to IVU
- Started on heparin drip
- Continue with daily Plavix for now
- Continue statin and ezetimibe
- N.p.o. after midnight
- Echocardiogram
- Cardiology consult
CHF -suspect CHF exacerbation secondary to ischemic cardiomyopathy in the setting of his NSTEMI. He is moderately volume overloaded. He has no hypoxia and his blood pressure is stable.
- Continue Lasix 40 mg IV every 12
- Continue his current GDMT with losartan and spironolactone with hold parameters
- Hold metoprolol pending echo
- Daily weights and ins and outs
- Fluid restriction
- Echo as above
- Further ischemic evaluation per cardiology
- Check TSH
DM 2
-Sliding scale insulin
-Continue dapagliflozin
BPH
- Continue with tamsulosin and finasteride
Dementia and behavioral management
- Continue donepezil
- Continue divalproex
DVT prophylaxis�on heparin drip
CODE STATUS�full code, does not want prolonged intubation
[2025-02-06] MEDS: HEPARIN 4000 UNITS IV (23:29)
[2025-02-06 23:51] LABS: APTT 31.6 Sec (23.4-35.0)
[2025-02-07] VITALS (26 sets, daily range): BP systolic 131–178; BP diastolic 72–118; BMI 26.1
[2025-02-07] MEDS: HEPARIN 25000 UNITS/250 ML IV (00:10)
[2025-02-07 05:13] LABS: Troponin I 3.470 ng/ml
[2025-02-07] MEDS: COZAAR 25 MG PO (06:33)
[2025-02-07] MEDS: ALDACTONE 12.5 MG PO (06:34)
[2025-02-07] MEDS: SYNTHROID 50 MCG PO (06:40)
[2025-02-07 06:48] LABS: APTT 69.5 Sec (23.4-35.0)
[2025-02-07 06:53] LABS: Hematocrit 45.8 % (39.0-52.0); Hemoglobin 15.4 g/dL (13.0-18.0); Mean Corp Hgb Conc. 33.6 g/dL (33.0-37.0); Mean Corpuscular Volume 85.0 fL (80.0-94.0); Platelet Count 182 10^3/uL (130-400); Red Cell Dist. Width 15.0 % (11.5-14.5)
[2025-02-07 07:05] LABS: Blood Urea Nitrogen 15 mg/dl (9-20); Calcium 9.0 mg/dl (8.4-10.2); Carbon Dioxide 30 mmol/L (22-30); Chloride 108 mmol/L (98-107); Estimated Creatinine Clearance 98 ml/min; Glucose 118 mg/dl (70-99); HDL Cholesterol 75 mg/dl; LDL Cholesterol, Calculated 14 mg/dl; Magnesium 2.0 mg/dl (1.6-2.3); Potassium 3.3 mmol/L (3.5-5.1); Sodium 142 mmol/L (135-145); Very Low Density Lipoprotein 14 mg/dl (0-30); eGFR > 60.00
[2025-02-07] MEDS: PLAVIX 75 MG PO (08:04)
[2025-02-07] MEDS: ZETIA 10 MG PO (08:05)
[2025-02-07] MEDS: PROSCAR 5 MG PO (08:05)
[2025-02-07] MEDS: SINEMET 25-100 2 TABLET PO ×2 (08:07→16:57)
[2025-02-07] MEDS: CELEXA 40 MG PO (08:08)
[2025-02-07] MEDS: COLACE 100 MG PO (08:08)
[2025-02-07] MEDS: LASIX 40 MG IV ×2 (08:11→16:57)
--- NOTE | 2025-02-07 09:47 | W.PN.HOSP.TC ---
Addendum entered and electronically signed by Richard Bliss MD 02/10/25 16:58:
Hypokalemia being repleted.
Original Note:
Today's Communication/Plan
-
See plan
Assessment / Plan
Assessment / Plan
Impression
79-year-old with past medical history significant for CAD status post NSTEMI with remote stents currently on Plavix, CHF with mildly reduced EF of around 45 to 50%, aortic sclerosis with mild stenosis, aortic valve gradient 15/8 mmHg suggestive of
mild aortic stenosis accompanied with dyspnea on exertion, shortness of breath, orthopnea over the last 2 weeks. No improvement despite increasing his Lasix to 40 mg daily. He has bilateral lower extremity edema, bilateral small pleural effusions
but otherwise no extensive volume overload. Incidentally his troponin was 3.2 although the patient has had no chest pain. He has no signs of an acute infectious process or inflammatory process at this time. Given troponin and worsening heart
failure we will have to consider his NSTEMI. He does not have cardiogenic shock at this time but BNP is elevated to 5000. No evidence of PE on CT scan.
NSTEMI
Known CAD with history of multivessel stenting in 2008
Concern for acute on chronic CHF mildly reduced EF (EF 45-50%)
Mild aortic stenosis
Essential hypertension
Dyslipidemia
Hypothyroidism
CVA by history.
Parkinson's disease
Plan
Non-STEMI.
With shortness of breath/exertional dyspnea/orthopnea. Reports no chest pain.
Troponin rising to 3.4 following trend.
Echocardiogram
Initiated on IV heparin
Continue Plavix
Previously on Toprol-XL, although had been stopped with concern for bradycardia. Would consider to resume while holding donepezil.
Continue statin
Chronic CHF mildly reduced EF.
Weight close to dry.
No edema and clear lungs upon presentation.
Noted with elevated pro CHF BNP.
CT chest negative for PE.
Reported recent increase of Lasix to 40 mg daily with no improvement of exertiona dyspnea and orthopnea
Currently on IV Lasix 40 mg twice daily.
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
No clear history of diabetes
Suspect an SGLT2 inhibitor as a part of GDMT.
Will check hemoglobin A1c.
Initiated on sliding scale with serial Accu-Cheks
BPH baseline continue Flomax
Hypothyroidism replacement with levothyroxine
Parkinson disease
Reportedly LBD
Continue preadmission regimen including Sinemet, Rexulti, Depakote, Celexa.
Full code
DVT prophylaxis IV heparin
Anticipated Discharge: 24 - 48 hours
Subjective/Interval History
-
Date of Service: February 07, 2025
Objective Data
-
Labs:
Laboratory Results
02/06/25 02/07/25 02/07/25
23:25 06:27 06:28
WBC 6.0
Hgb 15.4
Hct 45.8
Plt Count 182
APTT 31.6 69.5 H
Sodium 142
Potassium 3.3 L
Chloride 108 H
Carbon Dioxide 30
BUN 15
Creatinine 0.6 L
Glucose 118 H
Calcium 9.0
02/07/25
12:10
WBC
Hgb
Hct
Plt Count
APTT Pending
Sodium
Potassium
Chloride
Carbon Dioxide
BUN
Creatinine
Glucose
Calcium
Vital Signs:
Vital Signs
Temp Pulse Resp BP Pulse Ox
97.5 F 96 21 168/111 96
02/07/25 08:44 02/07/25 08:38 02/07/25 08:38 02/07/25 08:38 02/07/25 09:05
I&O
02/06/25 02/07/25 02/08/25
06:59 06:59 06:59
Output Total 1650 / 1650 950 / 950
Balance -1650 / -1650 -950 / -950
Physical Exam
-
General: Well Developed and No Apparent Distress
HEENT: Normocephalic, Atraumatic and Moist Mucous Membranes
Respiratory: Clear to Auscultation
Cardiac: Regular Rhythm and S1/S2; Negative Murmur, Rub or Gallop
GI: Soft, Nontender, Nondistended and Normal Bowel Sounds; Negative Organomegaly
Rectal: Deferred by Provider
Musculoskeletal: No Clubbing, No Cyanosis and No Edema
Skin: Negative Rash
Neuro: Nonfocal/Grossly Intact
[2025-02-07] MEDS: NOVOLOG FLEXPEN-LOW RESISTANCE SC ×3 (09:54→16:49)
[2025-02-07] MEDS: FARXIGA 10 MG PO (10:27)
--- NOTE | 2025-02-07 10:41 | CON.CAR ---
Addendum entered and electronically signed by Eb Giron MD 02/07/25 12:00:
I saw and evaluated the patient, and I provided the substantive portion of the medical decision making.
I reviewed and agree with the note by MUSTAPHA and it accurately reflects our care.
I personally performed the medical decision making of the this encounter and my assessment and plan is below:
79-year-old man with coronary artery disease (multivessel PCI 2008), heart failure with mildly reduced ejection fraction (45-50%), and mild aortic stenosis who presents for 3-4 weeks of shortness of breath. He reports dyspnea is worse with laying
flat. He rode his stationary bike a week ago and it was not worse with exertion. He denies any chest pain/pressure. He called our office on 01/30/2025 and was advised to increase Lasix from 20 mg to 40 mg daily. He reports he only did that for a
few days but it did help. Since receiving IV Lasix in the ER, he feels improved. His weight has been stable at home at 171-172 pounds and he has not noticed any lower extremity edema.
Physical exam: RRR, soft systolic murmur, trace lower extremity edema, crackles at left lung base
Labs notable for creatinine 0.6, troponin 3.1 �> 3.27 �> 3.47
I personally reviewed his chest x-ray which shows mild pulmonary edema and small left-sided pleural effusion
My review of his ECG shows normal sinus rhythm with premature atrial and ventricular complexes, RBBB, inferior T wave inversions
Elevated troponin: NSTEMI versus nonischemic myocardial injury in the setting of heart failure exacerbation. Continue heparin. He is s/p aspirin 325 mg. No emergent indication for cardiac catheterization. He is chest pain-free. Continue to
trend troponin every 6 hours to peak. Start metoprolol 25 mg twice daily. Follow-up echocardiogram. If echo looks ok and he remains stable without chest pain, we will plan for medical management of NSTEMI with either delayed cardiac
catheterization on Monday or outpatient stress test. Decision will be made pending clinical course.
Hypertensive emergency: Elevated troponin. Start metoprolol as above. Nitro drip for goal SBP <160.
Acute on chronic HFrEF: Continue 40 mg IV Lasix twice daily. Continue GDMT with losartan, spironolactone, and dapagliflozin. Uptitrate as tolerated.
Original Note:
Consultation
Consultation Request
Date/Time Consultation Requested: 02/07/25 1:40a
Date/Time Consultation Performed: 02/07/25 10a
Requesting Provider: Dr. Vick
Performing Provider: MUSTAPHA Tarango for Dr. Giron
Reason for Consultation: sob
Medical History
-
Chief Complaint: sob
History of Present Illness:
Mr. Noble is a 79 yo male with CAD (multivessel PCI 2008), HTN, HFmrEF, HLD, mild , mod MR, Parkinson's, CVA, melanoma treated at [facility], DM and urinary incontinence (Dr. Bro), who c/o SOB for 3-4 weeks. SOB is worse with
exertion and lying flat. His Lasix was increased from 20mg daily to 40mg daily on 01/30/25, he states increasing the dose for 2 days only. He admits to increased LE edema as well. He is admitted to the hospitalist service and we are consulted for
sob/hfmref.
Past Medical History
Past Medical History: Other (as above)
Past Surgical History: Other (melanoma skin surgery removal)
Social History
Tobacco: Former Smoker
Personal:
Living: With Family
Family History
Family History: Reviewed & Not Pertinent
Allergies / Home Medications
Allergy/AdvReac Type Severity Reaction Status Date / Time
pollen extracts Allergy SEASONAL-SNEEZING, Verified 02/06/25 18:05
RUNNY NOSE
�Medication �Instructions �Recorded �Confirmed �Type
carbidopa 25 mg-levodopa 100 mg 2 tab PO BID@0800,1500 02/17/22 02/06/25 History
tablet Neurological Condition
coenzyme Q10 100 mg capsule 200 mg PO QPM Supplement 02/17/22 02/06/25 History
(CoQ-10)
pravastatin 80 mg tablet 80 mg PO HS High cholesterol 02/17/22 02/06/25 History
tamsulosin 0.4 mg capsule 0.4 mg PO HS Urinary issue 02/17/22 02/06/25 History
finasteride 5 mg tablet 5 mg PO DAILY Urinary Issue 11/04/22 02/06/25 History
nitroglycerin 0.4 mg sublingual 0.4 mg sublingual [id number] PRN 11/04/22 02/06/25 History
tablet chest pain
alirocumab 75 mg/mL subcutaneous 75 mg SC Q14D 06/14/24 02/06/25 History
pen injector (Praluent Pen)
citalopram 40 mg tablet (Celexa) 40 mg PO DAILY 06/14/24 02/06/25 History
clopidogrel 75 mg tablet (Plavix) 75 mg PO DAILY 06/14/24 02/06/25 History
divalproex 250 mg tablet,extended 500 mg PO HS 06/14/24 02/06/25 History
release 24 hr
docusate sodium 100 mg capsule 100 mg PO Q48H 06/14/24 02/06/25 History
(Colace)
ezetimibe 10 mg tablet (Zetia) 10 mg PO DAILY 06/14/24 02/06/25 History
cholecalciferol (vitamin D3) 50 50 mcg PO DAILY 06/15/24 02/06/25 History
mcg (2,000 unit) capsule (Vitamin
D3)
multivitamin 1 tab PO HS 06/15/24 02/06/25 History
dapagliflozin propanediol 10 mg 10 mg PO DAILY #0 tabs 06/19/24 02/06/25 Rx
tablet
furosemide 40 mg tablet 40 mg PO DAILY #0 tabs 06/19/24 02/06/25 Rx
acetaminophen 325 mg tablet 650 mg PO Q6HPRN PRN mild pain 02/06/25 02/06/25 History
(Tylenol)
brexpiprazole 1 mg tablet (Rexulti) 2 mg PO QPM 02/06/25 02/06/25 History
donepezil 10 mg tablet 10 mg PO HS 02/06/25 02/06/25 History
levothyroxine 100 mcg tablet 100 mcg PO SUSA 02/06/25 02/06/25 History
(Synthroid)
levothyroxine 50 mcg tablet 50 mcg PO MOTUWETHFR 02/06/25 02/06/25 History
(Synthroid)
losartan 25 mg tablet 25 mg PO DAILY 02/06/25 02/06/25 History
spironolactone 25 mg tablet 12.5 mg PO DAILY 02/06/25 02/06/25 History
Review of Systems
-
History Source: Patient
All other systems: Negative unless noted
Physical Exam
Vital Signs
Temp Pulse Resp BP Pulse Ox
97.5 F 96 21 168/111 96
02/07/25 08:44 02/07/25 08:38 02/07/25 08:38 02/07/25 08:38 02/07/25 09:05
Lab Results
02/07/25 06:28
02/07/25 06:27
Troponin I Cancelled 02/07/25 09:44
Prk-Q-Jkatjktrton Pept 5340 pg/ml 02/06/25 18:21
Physical Exam
General: Well Developed and No Apparent Distress
HEENT: Normocephalic and Moist Mucous Membranes
Respiratory: Non Labored Respirations and Other (diminished b/l bases)
Cardiac: S1/S2, Regular Rhythm and Peripheral Edema (b/l LE)
Breast: Deferred by me
GI: Soft, Non Tender and Normal Bowel Sounds
Rectal: Deferred by Provider
Genito-urinary: Clear Urine
Musculoskeletal: No Clubbing and No Cyanosis
Neuro: AO x 3
Psych: Calm
Impression / Plan
-
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
- EF 45-50% on echo 05/2024.
- agree with IV Lasix, which requires intensive monitoring.
- check daily weights, I&Os, follow BMP.
- check echo.
Non-ischemic myocardial injury - acute due to HTN and acute HFmrEF.
- troponins 3.1, 3.27, 3.47, trend to peak.
- denies chest pain.
- EKG w/o acute ischemia.
- check echo.
CAD - multivessel PCI 2008.
- stable on Plavix (h/o CVA).
HLD - stable on Pravastatin, Zetia and Praluent, continue.
Data Reviewed
-
EKG: Tracing Personally Visualized and interpreted
Radiology: Report Reviewed by me
Labs: Labs Reviewed by me
Old Records: Reviewed
--- NOTE | 2025-02-07 11:10 | PN.CDI ---
CDI
- -
CDI:
Physician Documentation Request
Admit Date: 02/06/25 23:58
Dear Doctor Izaiah,
Patient admitted for NSTEMI.
02/06 Potassium level: 3.3
02/06 Potassium chloride 40 meq PO administered
02/07 Potassium level: 3.3
Based on the above, could you clarify in the progress notes, the appropriate diagnosis, if significant, that supports the above abnormalities and additional evaluation, monitoring and/or treatment rendered:
Hypokalemia
Abnormal lab value insignificant
Other
Use of terms such as suspected, likely, concern for, or probable (associated with a specific diagnosis that is being evaluated, monitored, or treated as if it exists) are acceptable and can be coded in the inpatient setting, when documented at the
time of discharge.
Thank you,
Brenda Fagan RN, BSN
CDI Specialist
Available via [place] text
Please use your independent medical judgment in providing your response.
[2025-02-07 12:05] LABS: Glucose - Point of Care 148 mg/dl (70-99)
[2025-02-07] MEDS: TOPROL XL 25 MG PO ×2 (12:30→20:04)
[2025-02-07 13:09] LABS: APTT 75.2 Sec (23.4-35.0)
[2025-02-07 13:26] LABS: Troponin I 3.950 ng/ml
--- NOTE | 2025-02-07 14:21 | CM ---
Met with patient at bedside in the ED
Pharmacy verified: [facility] @ [address] [place] [address]
Lives w/ ; multilevel home; 2 steps to enter; 12-13 steps between floors; half bath on 1st floor; 2nd floor bed and bathroom w/ walkin shower/shower chair
PLOF: reported that he was independent with personal care; assists w/ADLS; no device w/ambulation; but has a cane, Rolling Walker, and Rollator if needed; not driving
SNF stay 2024 @ [facility] followed by Home Health services w/ [facility]
will transport home
Discharge plan to be determined pending hospital course; Case Management will monitor and support if services recommended
--- NOTE | 2025-02-07 16:00 | TRANSFER ---
Report called to IVU, patient transferred via stretcher accompanied by RN. Heparin gtt infusing via R hand PIV. Transferred directly into [facility]. VSS.
[2025-02-07 16:49] LABS: Glucose - Point of Care 112 mg/dl (70-99)
[2025-02-07 17:38] LABS: Troponin I 3.850 ng/ml
[2025-02-07 18:16] LABS: Glucose - Point of Care 121 mg/dl (70-99)
--- NOTE | 2025-02-07 19:12 | PTCARENOTE ---
Received pt from ER into 2255 @ 1800. Pt SR on the monitor Heparin gtt infusing @ 950 units/HR. @ 1809 pt had 23 beat run of VTach. Pt with new onset left side facial droop. Stroke Alert was called [facility] 3 and accu check 121. Pt transferred to ct scan
and back. Dr Stock at bedside ordered BMP and 40 mEq PO. Upon return from ct scan BP 187/130. Dr Stock aware ordered Hydralazine PRN.
[2025-02-07] MEDS: KCL 40 MEQ PO (19:13)
--- NOTE | 2025-02-07 19:13 | W.PN.UPDATE ---
Update Note
Progress Note Update
Responded to a stroke alert called on the floor.
When I arrived in the room was notified that the stroke alert was called for a left facial droop and some dysarthria.
The patient had just been moved to the floor from the ED after admission for NSTEMI. He has been on IV heparin drip.
Apparently his had just gone out to move her car while the patient was being transported from the ED to the floors. When she arrived in the patient's room she noticed that his face was drooping on the left and when he spoke he had some mild
dysarthria. Just prior to her noticing these deficits, the patient had a brief run of approximate 10 beats of V. tach associated with some transient blurry vision both of which spontaneously resolved.
Patient was brought for a stat head CT which showed no acute abnormalities. I spoke with Dr. Edi Weiss at [facility] through the teleneurology line to discuss the case. He recommended continuing conservative management at this point
especially considering the mildness of his symptoms and the fact that he is already on IV heparin drip. His left-sided facial droop was resolving after CT scan.
Plan:
- We will continue neurochecks and IV heparin.
- He will be evaluated by PT/OT and CUSTOMS EXAMINER.
- A formal neurology consult has been placed.
- If he clinically deteriorates we will discuss the case further with on-call neurologist.
- His blood pressure was elevated with SBP around 180. We will allow permissive hypertension for now with IV antihypertensive agents as needed for SBP greater than 200.
[2025-02-07 20:13] LABS: APTT 80.1 Sec (23.4-35.0)
[2025-02-07 20:47] LABS: Blood Urea Nitrogen 15 mg/dl (9-20); Calcium 9.2 mg/dl (8.4-10.2); Carbon Dioxide 30 mmol/L (22-30); Chloride 103 mmol/L (98-107); Estimated Creatinine Clearance 81 ml/min; Glucose 208 mg/dl (70-99); Magnesium 1.8 mg/dl (1.6-2.3); Potassium 3.4 mmol/L (3.5-5.1); Sodium 139 mmol/L (135-145); eGFR > 60.00
[2025-02-07 21:52] LABS: Glucose - Point of Care 165 mg/dl (70-99)
[2025-02-07] MEDS: PRAVACHOL 80 MG PO (22:02)
[2025-02-07] MEDS: FLOMAX 0.4 MG PO (22:02)
[2025-02-07] MEDS: DEPAKOTE ER (24 HR RELEASE) 500 MG PO (22:24)
[2025-02-08] VITALS (11 sets, daily range): BP systolic 106–142; BP diastolic 63–100; BMI 25.3
--- NOTE | 2025-02-08 01:07 | PTCARENOTE ---
Pt rec'd at change of shift returning from CT scan. 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 according to pt's ; pt seems better more alert ,speech improved.
ate 100% of dinner. Sinus with occ pvc's noted. potassium replaced orally. Heparin gtt therapeutic x 2 next ptt check in am.
[2025-02-08] MEDS: HEPARIN 25000 UNITS/250 ML IV ×2 (02:52→22:36)
--- NOTE | 2025-02-08 03:02 | PTCARENOTE ---
No facial droop noted, tongue midline and no garbled speech noted. Pt oriented x 3, cooperative with no complaints. Sinus with pvc's.
[2025-02-08 04:33] LABS: Hematocrit 42.8 % (39.0-52.0); Hemoglobin 14.4 g/dL (13.0-18.0); Mean Corp Hgb Conc. 33.6 g/dL (33.0-37.0); Mean Corpuscular Volume 85.9 fL (80.0-94.0); Platelet Count 181 10^3/uL (130-400); Red Cell Dist. Width 14.9 % (11.5-14.5)
[2025-02-08 05:00] LABS: APTT > 200 Sec (23.4-35.0)
[2025-02-08 05:54] LABS: Blood Urea Nitrogen 16 mg/dl (9-20); Calcium 8.3 mg/dl (8.4-10.2); Carbon Dioxide 27 mmol/L (22-30); Chloride 110 mmol/L (98-107); Estimated Creatinine Clearance 95 ml/min; Glucose 106 mg/dl (70-99); Potassium 3.2 mmol/L (3.5-5.1); Sodium 141 mmol/L (135-145); eGFR > 60.00
[2025-02-08 06:25] LABS: APTT 50.4 Sec (23.4-35.0)
[2025-02-08] MEDS: KCL 40 MEQ PO ×2 (06:33→18:06)
[2025-02-08] MEDS: SYNTHROID 100 MCG PO (06:33)
--- NOTE | 2025-02-08 07:35 | CON.NEURO ---
Consultation
Order
Date of Consultation: 02/08/25
Requesting Provider: Jluis Sage DO
Reason for Consult: TIA
Neurology Consultation Note.
HPI: This is a 79-year-old RH man who presented to [facility] on 02/06/2025 with dyspnea. Neurology consultation was requested for an evaluation and management of transient dysarthria and left facial weakness. According to EMR patient
had a brief run of approximate 10 beats of V. tach prior to symptoms onset.
The patient reports experiencing slurred speech and facial weakness yesterday around 6 PM. Concurrent with these symptoms, he noticed visual changes, describing seeing fuzzy and moving while watching TV. These visual symptoms lasted for a couple of
seconds. The patient denies any associated headache. He believes his speech has returned to normal.
The patient also reports experiencing shortness of breath both at rest and with exertion. He describes occasional balance issues, stating his balance is 'Good at times. Sometimes it's not so good.' Additionally, he reports chronic tingling in both
his hands and feet.
The patient states that he has been on Plavix after he was found to have acute infarct on brain MRI done at [facility] as a part of metastatic workup.
ER VS: 161/93�191/127, 97, afebrile
EKG:NSR, QTcB Int : 546 ms
PDMP: No recently prescribed medication
Labs: Troponin�3.100, glucose�169, normal sodium, creatinine, free T4.
CT head wo contrast-moderate to severe generalized volume loss, chronic right frontal infarct.
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
PSH: Bilateral cataract surgery, PTCI, L3-L4 lumbar laminectomy, bilateral CTS surgery, Mohs surgery right ear, multiple melanomas resection
SH: , retired, former smoker, Does not drive, has a cane/walker but doesn't use it
FH: Noncontributory to current presentation
All:NKDA
ROS: General: Negative for fever, chills, fatigue, muscle aches, appetite or weight changes.
HEENT: Positive for transient visual disturbance (fuzzy vision lasting a few seconds). Negative for headache.
Cardiovascular: Negative for chest pain.
Respiratory: Positive for shortness of breath at rest and with exertion.
Gastrointestinal: Negative for abdominal pain.
Genitourinary: Negative for urinary difficulties.
Musculoskeletal: Positive for occasional balance issues.
Neurological: Positive for tingling in hands and feet. Negative for numbness, dizziness, or spinning sensation.
General: Well developed. In no acute distress.
Cardio: Regular rate and rhythm without murmur. Extremities are without cyanosis or edema.
Neuro:
Mental Status: Alert, oriented to person, place, and date. Normal attention and recall. Good fund of knowledge. Follows complex requests across the midline. Comprehension, naming, and repetition intact.
Cranial Nerves: Pupils are equally round, surgical. EOMs full. Visual rousseau full to confrontation. No ptosis. No nystagmus. Face symmetric. Impaired hearing AU. The palate elevated well. SCMs and traps 5/5. Tongue midline. No dysarthria.
Motor: Normal bulk and tone. No pronator or arm drift. Strength 5/5 throughout. No clonus.
Reflexes: 1+ throughout the upper extremities and 0 knees.
Sensory: Preserved vibration at the ankles.
Coordination: No dysmetria or tremor.
Gait: deferred
Assessment and Plan:
I. TIA vs simple partial seizure
II. Metastatic melanoma
III. H/o IBM and LBD
- Fall and seizure precautions
- Please obtain brain MRI with and without gadolinium
- Lorazepam 2 mg IV as needed for GTC's
- Will contact patient's post obtain collateral history
I personally reviewed all radiology and labs along with past medical records pertinent to current medical problems. Total time spent in patient care is 60 minutes.
Thank you for allowing us to participate in the care of this patient. We will continue to follow. Please do not hesitate to contact us with any questions or concerns.
Subjective/Objective
Subjective Data
Date of Service: February 08, 2025
Objective Data
Vital Signs
Temp Pulse Resp BP Pulse Ox
36.7 C 62 20 142/83 95
02/08/25 02:52 02/08/25 06:15 02/08/25 02:52 02/08/25 02:52 02/08/25 02:52
Lab Results
02/08/25 03:51
02/08/25 03:51
APTT 50.4 Sec (23.4-35.0) H 02/08/25 05:25
Sodium 141 mmol/L (135-145) 02/08/25 03:51
Potassium 3.2 mmol/L (3.5-5.1) L 02/08/25 03:51
BUN 16 mg/dl (9-20) 02/08/25 03:51
Glucose 106 mg/dl (70-99) H 02/08/25 03:51
Calcium 8.3 mg/dl (8.4-10.2) L 02/08/25 03:51
Nwm-I-Mhwedjbpjup Pept 5340 pg/ml 02/06/25 18:21
LDL Cholesterol, Calc 14 mg/dl 02/07/25 06:27
Patient Allergies
pollen extracts Allergy (Verified 02/06/25 18:05)
SEASONAL-SNEEZING, RUNNY NOSE
Medications
-
Active Medications
Generic Name Dose Route Start Last Admin
Trade Name Freq PRN Reason Stop Dose Admin
Acetaminophen 650 mg 02/07/25 01:41
Acetaminophen 325 Mg Tablet PO 03/07/25 01:40
Q6HPRN PRN
mild pain
Carbidopa/Levodopa 2 tablet 02/07/25 08:00 02/07/25 16:57
Carbidopa (25 Mg)/Levodopa (100 Mg) Regular Release Tablet PO 03/07/25 07:59 2 tablet
BID@0800,1500 DARSHAN Administration
Citalopram Hydrobromide 40 mg 02/07/25 08:00 02/07/25 08:08
Citalopram 40 Mg Tablet PO 03/07/25 07:59 40 mg
DAILY DARSHAN Administration
Clopidogrel Bisulfate 75 mg 02/07/25 08:00 02/07/25 08:04
Clopidogrel 75 Mg Tablet PO 03/07/25 07:59 75 mg
DAILY DARSHAN Administration
Dapagliflozin 10 mg 02/07/25 08:00 02/07/25 10:27
Dapagliflozin (Farxiga) 10 Mg Tablet PO 03/07/25 07:59 10 mg
DAILY DARSHAN Administration
Dextrose 12.5 grams 02/07/25 02:00
Dextrose 50% (0.5 Grams/Ml) 50 Ml Syringe IV 03/07/25 01:59
[id number] PRN
hypoglycemia
Protocol
Divalproex Sodium 500 mg 02/07/25 22:00 02/07/25 22:24
Divalproex 250 Mg Extended Release (24 Hr) Tablet PO 03/07/25 21:59 500 mg
HS DARSHAN Administration
Docusate Sodium 100 mg 02/07/25 08:00 02/07/25 08:08
Docusate Sodium 100 Mg Capsule PO 03/07/25 07:59 100 mg
Q48H DARSHAN Administration
Ezetimibe 10 mg 02/07/25 08:00 02/07/25 08:05
Ezetimibe (Zetia) 10 Mg Tablet PO 03/07/25 07:59 10 mg
DAILY DARSHAN Administration
Finasteride 5 mg 02/07/25 08:00 02/07/25 08:05
Finasteride 5 Mg Tablet PO 03/07/25 07:59 5 mg
DAILY DARSHAN Administration
Furosemide 40 mg 02/07/25 08:00 02/07/25 16:57
Furosemide 40 Mg (10 Mg/Ml) 4 Ml Vial IV 03/07/25 07:59 40 mg
BID AT 0800,1600 DARSHAN Administration
Glucagon 1 mg 02/07/25 02:00
Glucagon 1 Mg Vial IM 03/07/25 01:59
PRN PRN
hypoglycemia - no IV access
Protocol
Hydralazine HCl 10 mg 02/07/25 19:08
Hydralazine 20 Mg/Ml Vial IV 03/07/25 19:07
Q4HPRN PRN
SBP >200
Heparin Sodium 25,000 units in 250 mls @ 0 mls/hr 02/06/25 23:00 02/08/25 02:52
Heparin 05475 Units/250 Ml IV 250 mls
PER PROTOCOL DARSHAN Administration
Protocol
Per Protocol
Nitroglycerin/Dextrose 100 mg in 250 mls @ 0 mls/hr 02/07/25 12:00
Nitroglycerin Premix IV
PER PROTOCOL DARSHAN
Protocol
Per Protocol
Insulin Aspart 0 units 02/07/25 07:30 02/07/25 16:49
Insulin Aspart Low Resistance 300 Units/3 Ml Pen.Injctr SC 03/07/25 07:29 Not Given
AC DARSHAN
Protocol
Levothyroxine Sodium 100 mcg 02/08/25 06:00 02/08/25 06:33
Levothyroxine 100 Mcg Tablet PO 03/08/25 05:59 100 mcg
SuSa@599 DARSHAN Administration
Levothyroxine Sodium 50 mcg 02/07/25 06:00 02/07/25 06:40
Levothyroxine 50 Mcg Tablet PO 03/07/25 05:59 50 mcg
MoTuWeThFr@599 DARSHAN Administration
Losartan Potassium 25 mg 02/08/25 08:00
Losartan 25 Mg Tablet PO 03/08/25 07:59
DAILY DARSHAN
Metoprolol Succinate 25 mg 02/07/25 12:00 02/07/25 20:04
Metoprolol 25 Mg Extended Release Tablet PO 03/07/25 11:59 25 mg
BID DARSHAN Administration
Nitroglycerin 0.4 mg 02/07/25 01:41
Nitroglycerin 0.4 Mg Sl Tablet SL 03/07/25 01:40
[id number] PRN
chest pain
Brexpiprazole [ 0 mg 02/07/25 18:00
Rexulti] 1 Mg Tablet PO 03/07/25 17:59
Take 2 Tablets (2 QPM DARSHAN
Mg) Po Qpm
Pravastatin Sodium 80 mg 02/07/25 22:00 02/07/25 22:02
Pravastatin 40 Mg Tablet PO 03/07/25 21:59 80 mg
HS DARSHAN Administration
Sodium Chloride 0 flush 02/07/25 02:00
Sodium Chloride 0.9% (Flush) Syringe IV 03/07/25 01:59
PER PROTOCOL DARSHAN
Spironolactone 12.5 mg 02/08/25 08:00
Spironolactone 12.5 Mg Dose (1/2 Of 25 Mg Tablet) PO 03/08/25 07:59
DAILY DARSHAN
Tamsulosin HCl 0.4 mg 02/07/25 22:00 02/07/25 22:02
Tamsulosin 0.4 Mg Capsule PO 03/07/25 21:59 0.4 mg
HS DARSHAN Administration
Home Medications
�Medication �Instructions �Recorded
carbidopa 25 mg-levodopa 100 mg 2 tab PO BID@0800,1500 02/17/22
tablet Neurological Condition
coenzyme Q10 100 mg capsule 200 mg PO QPM Supplement 02/17/22
(CoQ-10)
pravastatin 80 mg tablet 80 mg PO HS High cholesterol 02/17/22
tamsulosin 0.4 mg capsule 0.4 mg PO HS Urinary issue 02/17/22
finasteride 5 mg tablet 5 mg PO DAILY Urinary Issue 11/04/22
nitroglycerin 0.4 mg sublingual 0.4 mg sublingual [id number] PRN 11/04/22
tablet chest pain
alirocumab 75 mg/mL subcutaneous 75 mg SC Q14D 06/14/24
pen injector (Praluent Pen)
citalopram 40 mg tablet (Celexa) 40 mg PO DAILY 06/14/24
clopidogrel 75 mg tablet (Plavix) 75 mg PO DAILY 06/14/24
divalproex 250 mg tablet,extended 500 mg PO HS 06/14/24
release 24 hr
docusate sodium 100 mg capsule 100 mg PO Q48H 06/14/24
(Colace)
ezetimibe 10 mg tablet (Zetia) 10 mg PO DAILY 06/14/24
cholecalciferol (vitamin D3) 50 50 mcg PO DAILY 06/15/24
mcg (2,000 unit) capsule (Vitamin
D3)
multivitamin 1 tab PO HS 06/15/24
dapagliflozin propanediol 10 mg 10 mg PO DAILY #0 tabs 06/19/24
tablet
furosemide 40 mg tablet 40 mg PO DAILY #0 tabs 06/19/24
acetaminophen 325 mg tablet 650 mg PO Q6HPRN PRN mild pain 02/06/25
(Tylenol)
brexpiprazole 1 mg tablet (Rexulti) 2 mg PO QPM 02/06/25
donepezil 10 mg tablet 10 mg PO HS 02/06/25
levothyroxine 100 mcg tablet 100 mcg PO SUSA 02/06/25
(Synthroid)
levothyroxine 50 mcg tablet 50 mcg PO MOTUWETHFR 02/06/25
(Synthroid)
losartan 25 mg tablet 25 mg PO DAILY 02/06/25
spironolactone 25 mg tablet 12.5 mg PO DAILY 02/06/25
Vital Signs and Labs
-
Vital Signs and Labs:
Vital Signs
Temp Pulse Resp BP Pulse Ox
36.7 C 62 20 142/83 95
02/08/25 02:52 02/08/25 06:15 02/08/25 02:52 02/08/25 02:52 02/08/25 02:52
Lab Results
02/08/25 03:51
02/08/25 03:51
APTT 50.4 Sec (23.4-35.0) H 02/08/25 05:25
Sodium 141 mmol/L (135-145) 02/08/25 03:51
Potassium 3.2 mmol/L (3.5-5.1) L 02/08/25 03:51
BUN 16 mg/dl (9-20) 02/08/25 03:51
Glucose 106 mg/dl (70-99) H 02/08/25 03:51
Calcium 8.3 mg/dl (8.4-10.2) L 02/08/25 03:51
Ati-U-Eoyxirqorva Pept 5340 pg/ml 02/06/25 18:21
LDL Cholesterol, Calc 14 mg/dl 02/07/25 06:27
Medications
-
Medications:
Generic Name Dose Route Start Last Admin
Trade Name Freq PRN Reason Stop Dose Admin
Acetaminophen 650 mg 02/07/25 01:41
Acetaminophen 325 Mg Tablet PO 03/07/25 01:40
Q6HPRN PRN
mild pain
Carbidopa/Levodopa 2 tablet 02/07/25 08:00 02/07/25 16:57
Carbidopa (25 Mg)/Levodopa (100 Mg) Regular Release Tablet PO 03/07/25 07:59 2 tablet
BID@0800,1500 DARSHAN Administration
Citalopram Hydrobromide 40 mg 02/07/25 08:00 02/07/25 08:08
Citalopram 40 Mg Tablet PO 03/07/25 07:59 40 mg
DAILY DARSHAN Administration
Clopidogrel Bisulfate 75 mg 02/07/25 08:00 02/07/25 08:04
Clopidogrel 75 Mg Tablet PO 03/07/25 07:59 75 mg
DAILY DARSHAN Administration
Dapagliflozin 10 mg 02/07/25 08:00 02/07/25 10:27
Dapagliflozin (Farxiga) 10 Mg Tablet PO 03/07/25 07:59 10 mg
DAILY DARSHAN Administration
Dextrose 12.5 grams 02/07/25 02:00
Dextrose 50% (0.5 Grams/Ml) 50 Ml Syringe IV 03/07/25 01:59
[id number] PRN
hypoglycemia
Protocol
Divalproex Sodium 500 mg 02/07/25 22:00 02/07/25 22:24
Divalproex 250 Mg Extended Release (24 Hr) Tablet PO 03/07/25 21:59 500 mg
HS DARSHAN Administration
Docusate Sodium 100 mg 02/07/25 08:00 02/07/25 08:08
Docusate Sodium 100 Mg Capsule PO 03/07/25 07:59 100 mg
Q48H DARSHAN Administration
Ezetimibe 10 mg 02/07/25 08:00 02/07/25 08:05
Ezetimibe (Zetia) 10 Mg Tablet PO 03/07/25 07:59 10 mg
DAILY DARSHAN Administration
Finasteride 5 mg 02/07/25 08:00 02/07/25 08:05
Finasteride 5 Mg Tablet PO 03/07/25 07:59 5 mg
DAILY DARSHAN Administration
Furosemide 40 mg 02/07/25 08:00 02/07/25 16:57
Furosemide 40 Mg (10 Mg/Ml) 4 Ml Vial IV 03/07/25 07:59 40 mg
BID AT 0800,1600 DARSHAN Administration
Glucagon 1 mg 02/07/25 02:00
Glucagon 1 Mg Vial IM 03/07/25 01:59
PRN PRN
hypoglycemia - no IV access
Protocol
Hydralazine HCl 10 mg 02/07/25 19:08
Hydralazine 20 Mg/Ml Vial IV 03/07/25 19:07
Q4HPRN PRN
SBP >200
Heparin Sodium 25,000 units in 250 mls @ 0 mls/hr 02/06/25 23:00 02/08/25 02:52
Heparin 10448 Units/250 Ml IV 250 mls
PER PROTOCOL DARSHAN Administration
Protocol
Per Protocol
Nitroglycerin/Dextrose 100 mg in 250 mls @ 0 mls/hr 02/07/25 12:00
Nitroglycerin Premix IV
PER PROTOCOL DARSHAN
Protocol
Per Protocol
Insulin Aspart 0 units 02/07/25 07:30 02/07/25 16:49
Insulin Aspart Low Resistance 300 Units/3 Ml Pen.Injctr SC 03/07/25 07:29 Not Given
AC DARSHAN
Protocol
Levothyroxine Sodium 100 mcg 02/08/25 06:00 02/08/25 06:33
Levothyroxine 100 Mcg Tablet PO 03/08/25 05:59 100 mcg
SuSa@0600 DARSHAN Administration
Levothyroxine Sodium 50 mcg 02/07/25 06:00 02/07/25 06:40
Levothyroxine 50 Mcg Tablet PO 03/07/25 05:59 50 mcg
MoTuWeThFr@00 DARSHAN Administration
Losartan Potassium 25 mg 02/08/25 08:00
Losartan 25 Mg Tablet PO 03/08/25 07:59
DAILY DARSHAN
Metoprolol Succinate 25 mg 02/07/25 12:00 02/07/25 20:04
Metoprolol 25 Mg Extended Release Tablet PO 03/07/25 11:59 25 mg
BID DARSHAN Administration
Nitroglycerin 0.4 mg 02/07/25 01:41
Nitroglycerin 0.4 Mg Sl Tablet SL 03/07/25 01:40
[id number] PRN
chest pain
Brexpiprazole [ 0 mg 02/07/25 18:00
Rexulti] 1 Mg Tablet PO 03/07/25 17:59
Take 2 Tablets (2 QPM DARSHAN
Mg) Po Qpm
Pravastatin Sodium 80 mg 02/07/25 22:00 02/07/25 22:02
Pravastatin 40 Mg Tablet PO 03/07/25 21:59 80 mg
HS DARSHAN Administration
Sodium Chloride 0 flush 02/07/25 02:00
Sodium Chloride 0.9% (Flush) Syringe IV 03/07/25 01:59
PER PROTOCOL DARSHAN
Spironolactone 12.5 mg 02/08/25 08:00
Spironolactone 12.5 Mg Dose (1/2 Of 25 Mg Tablet) PO 03/08/25 07:59
DAILY DARSHAN
Tamsulosin HCl 0.4 mg 02/07/25 22:00 02/07/25 22:02
Tamsulosin 0.4 Mg Capsule PO 03/07/25 21:59 0.4 mg
HS DARSHAN Administration
Home Medications
-
Home Medications
carbidopa 25 mg-levodopa 100 mg tablet 2 tab PO BID@0800,1500 Neurological Condition 02/17/22
coenzyme Q10 100 mg capsule (CoQ-10) 200 mg PO QPM Supplement 02/17/22
pravastatin 80 mg tablet 80 mg PO HS High cholesterol 02/17/22
tamsulosin 0.4 mg capsule 0.4 mg PO HS Urinary issue 02/17/22
finasteride 5 mg tablet 5 mg PO DAILY Urinary Issue 11/04/22
nitroglycerin 0.4 mg sublingual tablet 0.4 mg sublingual [id number] PRN chest pain 11/04/22
alirocumab 75 mg/mL subcutaneous pen injector (Praluent Pen) 75 mg SC Q14D 06/14/24
citalopram 40 mg tablet (Celexa) 40 mg PO DAILY 06/14/24
clopidogrel 75 mg tablet (Plavix) 75 mg PO DAILY 06/14/24
divalproex 250 mg tablet,extended release 24 hr 500 mg PO HS 06/14/24
docusate sodium 100 mg capsule (Colace) 100 mg PO Q48H 06/14/24
ezetimibe 10 mg tablet (Zetia) 10 mg PO DAILY 06/14/24
cholecalciferol (vitamin D3) 50 mcg (2,000 unit) capsule (Vitamin D3) 50 mcg PO DAILY 06/15/24
multivitamin 1 tab PO HS 06/15/24
dapagliflozin propanediol 10 mg tablet 10 mg PO DAILY #0 tabs 06/19/24
furosemide 40 mg tablet 40 mg PO DAILY #0 tabs 06/19/24
acetaminophen 325 mg tablet (Tylenol) 650 mg PO Q6HPRN PRN mild pain 02/06/25
brexpiprazole 1 mg tablet (Rexulti) 2 mg PO QPM 02/06/25
donepezil 10 mg tablet 10 mg PO HS 02/06/25
levothyroxine 100 mcg tablet (Synthroid) 100 mcg PO SUSA 02/06/25
levothyroxine 50 mcg tablet (Synthroid) 50 mcg PO MOTUWETHFR 02/06/25
losartan 25 mg tablet 25 mg PO DAILY 02/06/25
spironolactone 25 mg tablet 12.5 mg PO DAILY 02/06/25
--- NOTE | 2025-02-08 07:46 | W.PN.HOSP.TC ---
Today's Communication/Plan
-
see plan
Assessment / Plan
Assessment / Plan
Impression
79-year-old with past medical history significant for CAD status post NSTEMI with remote stents currently on Plavix, CHF with mildly reduced EF of around 45 to 50%, aortic sclerosis with mild stenosis, aortic valve gradient 15/8 mmHg suggestive of
mild aortic stenosis accompanied with dyspnea on exertion, shortness of breath, orthopnea over the last 2 weeks. No improvement despite increasing his Lasix to 40 mg daily. He has bilateral lower extremity edema, bilateral small pleural effusions
but otherwise no extensive volume overload. Incidentally his troponin was 3.2 although the patient has had no chest pain. He has no signs of an acute infectious process or inflammatory process at this time. Given troponin and worsening heart
failure we will have to consider his NSTEMI. He does not have cardiogenic shock at this time but BNP is elevated to 5000. No evidence of PE on CT scan.
NSTEMI
Known CAD with history of multivessel stenting in 2008
Concern for acute on chronic CHF mildly reduced EF (EF 45-50%)
Mild aortic stenosis
Essential hypertension
Dyslipidemia
Hypothyroidism
CVA by history.
Parkinson's disease
Plan
Non-STEMI.
-Troponin peaked at 3.9
-TTE 02/07 with EF 30-35%; hypokinesis of anterior, anteroseptal inferoseptal and inferior hoffman new from prior
-appreciate Cardiology
-continue IV Heparin gtt
-s/p asa 325, start 81mg PO QD
-Continue Plavix
-New start Metoprolol
-Continue statin
Left Facial Droop and Mild Dysarthria
-stroke alert called evening of 02/07
-stat head CT without bleed
-telestroke consulted
-aspirin/Plavix as above
HFrEF, acute exacerbation
-CT chest negative for PE.
-Reported recent increase of Lasix to 40 mg daily with no improvement of exertional dyspnea and orthopnea
-Currently on IV Lasix 40 mg twice daily.
-[employer] GDMT including Lasix, spironolactone, losartan, dapagliflozin
No clear history of diabetes
Suspect an SGLT2 inhibitor as a part of GDMT.
Will check hemoglobin A1c.
Initiated on sliding scale with serial Accu-Cheks
BPH baseline continue Flomax
Hypothyroidism replacement with levothyroxine
Parkinson disease
Reportedly LBD
Continue preadmission regimen including Sinemet, Rexulti, Depakote, Celexa.
GI PPx: Start Protonix
Full code
DVT prophylaxis IV heparin
51 minutes spent on patient care
Anticipated Discharge: > 48 hours
Subjective/Interval History
-
Date of Service: February 08, 2025
he states he had trouble speaking yesterday afternoon for less than a few minutes, now completely resolved
no headache or weakness
no chest pain
breathing not normal but better
he is urinating a lot
Objective Data
-
Labs:
Laboratory Results
02/07/25 02/08/25 02/08/25
19:52 03:51 05:25
WBC 5.5
Hgb 14.4
Hct 42.8
Plt Count 181
APTT 80.1 H > 200 H* 50.4 H
Sodium 139 141
Potassium 3.4 L 3.2 L
Chloride 103 110 H
Carbon Dioxide 30 27
BUN 15 16
Creatinine 0.7 0.6 L
Glucose 208 H 106 H
Calcium 9.2 8.3 L
02/08/25
12:30
WBC
Hgb
Hct
Plt Count
APTT Pending
Sodium
Potassium
Chloride
Carbon Dioxide
BUN
Creatinine
Glucose
Calcium
Vital Signs:
Vital Signs
Temp Pulse Resp BP Pulse Ox
98.0 F 62 20 142/83 95
02/08/25 02:52 02/08/25 06:15 02/08/25 02:52 02/08/25 02:52 02/08/25 02:52
I&O
02/07/25 02/08/25 02/09/25
06:59 06:59 06:59
Intake Total 360 / 360
Output Total 1650 / 1650 2850 / 2850
Balance -1650 / -1650 -2490 / -2490
Review of Systems
-
History Source: Patient
All other systems: Reviewed and negative
Physical Exam
-
General: Well Developed and No Apparent Distress
HEENT: Normocephalic, Atraumatic and Moist Mucous Membranes
Respiratory: Clear to Auscultation
Cardiac: Regular Rhythm and S1/S2; Negative Murmur, Rub or Gallop
GI: Soft, Nontender, Nondistended and Normal Bowel Sounds; Negative Organomegaly
Rectal: Deferred by Provider
Musculoskeletal: No Clubbing, No Cyanosis and No Edema
Skin: Negative Rash
Neuro: AO x 3, Nonfocal/Grossly Intact and Other (BILL, no facial asymmetry, speech normal )
Psych: Calm
Data Reviewed
-
Diagnostic Radiology: Report Reviewed by me
Labs: Labs Reviewed by me
[2025-02-08 08:03] LABS: Glucose - Point of Care 127 mg/dl (70-99)
[2025-02-08] MEDS: NOVOLOG FLEXPEN-LOW RESISTANCE SC ×3 (08:15→16:40)
[2025-02-08] MEDS: CELEXA 40 MG PO (08:51)
[2025-02-08] MEDS: ALDACTONE 12.5 MG PO (08:51)
[2025-02-08] MEDS: LASIX 40 MG IV (08:52)
[2025-02-08] MEDS: FARXIGA 10 MG PO (08:52)
[2025-02-08] MEDS: COZAAR 25 MG PO (08:52)
[2025-02-08] MEDS: PLAVIX 75 MG PO (08:52)
[2025-02-08] MEDS: PROSCAR 5 MG PO (08:52)
[2025-02-08] MEDS: ZETIA 10 MG PO (08:53)
[2025-02-08] MEDS: SINEMET 25-100 2 TABLET PO ×2 (08:53→15:37)
[2025-02-08] MEDS: LOW STRENGTH ASPIRIN 81 MG PO (08:53)
[2025-02-08] MEDS: TOPROL XL 25 MG PO ×2 (08:53→21:21)
[2025-02-08] MEDS: PROTONIX 40 MG PO (08:53)
[2025-02-08] MEDS: FLUSH (NSS) 1 FLUSH IV (08:53)
--- NOTE | 2025-02-08 10:28 | PTCARENOTE ---
Assisted the patient oob to the chair this morning. Patient offers no complaints, NIH is 0 with no neuro deficits noted. Patient seen by neurology, MRI ordered for tomorrow. The patient's called to notify us that when she checked records her
did rule in for a stroke a year ago when it was found incidentally with a MRI at [facility]. TT to neuro and notified this information to her. Sitting oob in the chair, call segundo in reach, aware to request help when ambulating.
--- NOTE | 2025-02-08 11:06 | W.PN.CD ---
Today's Communication / Plan
-
Continue heparin and DAPT
Plan for LHC on Monday
Continue IV diuresis
Impression / Plan
-
79-year-old man with coronary artery disease (multivessel PCI 2008), heart failure with mildly reduced ejection fraction (45-50%), and mild aortic stenosis who presents for 3-4 weeks of shortness of breath.
Heel Stiffener: Swapnil
NSTEMI
- Troponin on admission 3.1 and has been relatively flat since then.
- He is chest pain-free. No emergent indication for cardiac catheterization.
- Continue IV heparin with plan for LHC on Monday
- Continue aspirin and Plavix; ASA added for NSTEMI, previously on Plavix for history of stroke
- Daily ECGs and troponins
- If he develops chest pain, would need more urgent cardiac catheterization
Left facial droop
- Stroke alert called on 02/07/2025 evening for left facial droop and dysarthria. 7-second run of NSVT preceding this
- CT head with no acute abnormalities
- Deficits have resolved
- Agree with neuro consult
HFrEF - acute on chronic (LVEF 30-35%)
- EF 45-50% on echo 05/2024. Now 30-35% on 02/07/2025, likely worse in the setting of NSTEMI as above
- Still complaining of orthopnea
- agree with IV Lasix, which requires intensive monitoring.
- GDMT:
- BB: Metoprolol started this admission
- FRANKIE/ARB/ARNI: continue losartan
- SGLT2 inhibitor: Continue dapagliflozin
- MRA: Continue spironolactone
- check daily weights, I&Os, follow BMP.
- Will need repeat TTE in 3 months for consideration of primary prevention ICD
NSVT
- Continue metoprolol
- Monitor on telemetry
CAD - multivessel PCI 2008.
- stable on Plavix (h/o CVA).
HLD - stable on Pravastatin, Zetia and Praluent, continue.
Subjective: Still short of breath. Worse with lying flat. No improvement since yesterday. He denies chest pain.
Physical Exam
Vital Signs/Labs
Vital Signs
Temp Pulse Resp BP Pulse Ox
97.5 F 65 18 140/100 98
02/08/25 10:58 02/08/25 10:58 02/08/25 10:58 02/08/25 08:52 02/08/25 10:58
02/07/25 02/08/25 02/09/25
06:59 06:59 06:59
Actual Weight 166 lb 7.184 oz 161 lb 9.581 oz
02/08/25 03:51
APTT 50.4 Sec (23.4-35.0) H 02/08/25 05:25
Magnesium 1.8 mg/dl (1.6-2.3) 02/07/25 19:52
Triglycerides 73 mg/dl (10-149) 02/07/25 06:27
LDL Cholesterol, Calc 14 mg/dl 02/07/25 06:27
VLDL Cholesterol, Calc 14 mg/dl (0-30) 02/07/25 06:27
HDL Cholesterol 75 mg/dl 02/07/25 06:27
Free T4 1.33 ng/dl (0.78-2.19) 02/07/25 06:27
02/06/25
18:21
Jdi-H-Bwjkqpetqod Pept 5340
LAB Results
02/06/25 02/06/25 02/07/25
18:21 21:35 04:22
Troponin I 3.100 H* 3.270 H* 3.470 H*
02/07/25 02/07/25 02/07/25
09:44 11:01 12:44
Troponin I Cancelled Cancelled 3.950 H*
02/07/25
16:56
Troponin I 3.850 H*
Physical Exam
Constitutional: No acute distress and Comfortable
Cardiovascular: Rhythm & rate is regular, Pedal edema is absent, S1S2 is normal and Murmur/rub/gallop absent
Respiratory: Respiratory effort normal and Crackles Present (Mild, bibasilar)
Neuro/Psych: AO x 3
Data Reviewed
-
Date of Service: February 08, 2025
Medical Decision Making: Reviewed Test Results, Test Interpretation and Review of Case with other Provider
EKG: Tracing Personally Visualized and interpreted
Echo: Tracing Personally Visualized and interpreted and Report Reviewed by me
Labs: Labs Reviewed by me
[2025-02-08 12:03] LABS: APTT 85.4 Sec (23.4-35.0)
[2025-02-08 12:15] LABS: Glucose - Point of Care 125 mg/dl (70-99)
[2025-02-08 12:20] LABS: Troponin I 3.800 ng/ml
[2025-02-08 13:02] LABS: APTT 56.9 Sec (23.4-35.0)
[2025-02-08 14:18] LABS: Magnesium 1.8 mg/dl (1.6-2.3)
--- NOTE | 2025-02-08 15:20 | W.PN.UPDATE ---
Update Note
Progress Note Update
Patient having more ectopy and NSVT on telemetry. Evaluated at bedside. He is asymptomatic. Spoke to his and answered all questions. Mag 1.8 this morning and K 3.2. Was given 40 mill equivalents PO potassium and repeat potassium level is
pending. Give 2 g IV mag now. Hold additional Lasix. If he continues to have ectopy, we need to consider antiarrhythmic or urgent cardiac catheterization.
[2025-02-08] MEDS: MAGNESIUM SULFATE 50 IV (15:38)
[2025-02-08] MEDS: LASIX IV (15:46)
--- NOTE | 2025-02-08 15:49 | PTCARENOTE ---
Patient with runs of VT and multiple PVC's, couplets. Sitting oob in the chair, asymptomatic BP 117/63. Dr. Giron notified of ectopy and in to see the patient again. Repleting mag with 2g Mag rider now and to recheck K+ level at 1600.
--- NOTE | 2025-02-08 16:33 | PTOTSP ---
ST Acute Care Evaluation
Pt currently presents with clinical signs of suspected mild pharyngeal dysphagia characterized by overt weak coughing with thin liquids via straw, even with small single sips - highly suspicious for airway invasion.
Recommendations:
- Continue with regular solids and thin liquids but NO STRAWS and encourage pt to take SMALL SINGLE SIPS.
- Administer meds one at a time with small single sips of water; larger meds to be crushed (as able) and placed in pureed solids.
- Aspiration precautions: HOB upright during all PO intake; small bites/sips; slow intake rate; NO STRAWS.
- CARD WRITER HAND to f/u re: diet tolerance, use of compensatory strategies, and to determine if pt would benefit from an instrumental swallow study.
[2025-02-08 16:36] LABS: Glucose - Point of Care 145 mg/dl (70-99)
[2025-02-08 17:27] LABS: Potassium 3.6 mmol/L (3.5-5.1)
--- NOTE | 2025-02-08 19:02 | PTCARENOTE ---
Patient received mag rider as ordered and result of 1600 K+ tt to Dr. Maurer and Dr. Giron. Patient given additional dose of KCL 40meq PO as ordered, significantly decreased ectopy noted since the patient was given mag rider. Patient visiting with
his son, offers no complaints, call segundo in reach.
[2025-02-08 19:52] LABS: APTT 97.1 Sec (23.4-35.0)
[2025-02-08] MEDS: DEPAKOTE ER (24 HR RELEASE) 500 MG PO (21:21)
[2025-02-08] MEDS: PRAVACHOL 80 MG PO (21:21)
[2025-02-08] MEDS: FLOMAX 0.4 MG PO (21:23)
[2025-02-08 22:30] LABS: Glucose - Point of Care 117 mg/dl (70-99)
[2025-02-09] VITALS (11 sets, daily range): BP systolic 94–139; BP diastolic 65–118; BMI 26.0
--- NOTE | 2025-02-09 03:28 | PTCARENOTE ---
systems reviewed, labs sent, no changes from previous assessment, otherwise refer to documentation
[2025-02-09 03:42] LABS: Hematocrit 42.5 % (39.0-52.0); Hemoglobin 14.2 g/dL (13.0-18.0); Mean Corp Hgb Conc. 33.4 g/dL (33.0-37.0); Mean Corpuscular Volume 85.7 fL (80.0-94.0); Platelet Count 176 10^3/uL (130-400); Red Cell Dist. Width 15.2 % (11.5-14.5)
[2025-02-09 03:53] LABS: APTT 111.2 Sec (23.4-35.0)
[2025-02-09 04:00] LABS: Blood Urea Nitrogen 26 mg/dl (9-20); Calcium 9.6 mg/dl (8.4-10.2); Carbon Dioxide 29 mmol/L (22-30); Chloride 107 mmol/L (98-107); Estimated Creatinine Clearance 71 ml/min; Glucose 137 mg/dl (70-99); Magnesium 2.4 mg/dl (1.6-2.3); Potassium 4.2 mmol/L (3.5-5.1); Sodium 138 mmol/L (135-145); eGFR > 60.00
[2025-02-09 04:14] LABS: Troponin I 4.870 ng/ml
[2025-02-09] MEDS: SYNTHROID 100 MCG PO (06:01)
--- NOTE | 2025-02-09 07:14 | W.PN.HOSP.TC ---
Today's Communication/Plan
-
NPO after MN for cardiac cath
IV heparin gtt
aspirin, plavix, statin, metop
Lasix on hold
appreciate Cardiology
appreciate Neurology
Assessment / Plan
Assessment / Plan
Impression
79-year-old with past medical history significant for CAD status post NSTEMI with remote stents currently on Plavix, CHF with mildly reduced EF of around 45 to 50%, aortic sclerosis with mild stenosis, aortic valve gradient 15/8 mmHg suggestive of
mild aortic stenosis accompanied with dyspnea on exertion, shortness of breath, orthopnea over the last 2 weeks. No improvement despite increasing his Lasix to 40 mg daily. He has bilateral lower extremity edema, bilateral small pleural effusions
but otherwise no extensive volume overload. Incidentally his troponin was 3.2 although the patient has had no chest pain. He has no signs of an acute infectious process or inflammatory process at this time. Given troponin and worsening heart
failure we will have to consider his NSTEMI. He does not have cardiogenic shock at this time but BNP is elevated to 5000. No evidence of PE on CT scan.
NSTEMI
Known CAD with history of multivessel stenting in 2008
Concern for acute on chronic CHF mildly reduced EF (EF 45-50%)
Mild aortic stenosis
Essential hypertension
Dyslipidemia
Hypothyroidism
CVA by history.
Parkinson's disease
Plan
Non-STEMI.
-Troponin peaked at 3.9; re-trended post NSVT (see below) and up to 4.8 this morning
-TTE 02/07 with EF 30-35%; hypokinesis of anterior, anteroseptal inferoseptal and inferior hoffman new from prior
-appreciate Cardiology
-continue IV Heparin gtt
-s/p asa 325, start 81mg PO QD
-Continue Plavix
-New start Metoprolol
-Continue statin
NSVT
-increased ectopy afternoon 02/08 responded to IV Mag rider
-keep K > 4, Mag > 2
-PVC's overnight, no further NSVT
Left Facial Droop and Mild Dysarthria
-stroke alert called evening of 02/07
-stat head CT without bleed
-telestroke consulted
-aspirin/Plavix as above
-MRI pending
HFrEF, acute exacerbation
-CT chest negative for PE.
-Reported recent increase of Lasix to 40 mg daily with no improvement of exertional dyspnea and orthopnea
-Admitted on IV Lasix 40 mg twice daily - on hold given ectopy
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
-continue NAIL ASSEMBLY MACHINE OPERATOR Farxiga
No clear history of diabetes
-F/U A1c
BPH baseline continue Flomax
Hypothyroidism replacement with levothyroxine
Parkinson disease
Reportedly LBD
Continue preadmission regimen including Sinemet, Rexulti, Depakote, Celexa.
GI PPx: Start Protonix
Full code
DVT prophylaxis IV heparin
51 minutes spent on patient care
Anticipated Discharge: 24 - 48 hours
Subjective/Interval History
-
Date of Service: February 09, 2025
feeling well this morning
denies chest pain
felt palpitations yest during ectopy - none today
Objective Data
-
Labs:
Laboratory Results
02/08/25 02/09/25 02/09/25
19:27 03:18 10:30
WBC 6.5
Hgb 14.2
Hct 42.5
Plt Count 176
APTT 97.1 H 111.2 H Pending
Sodium 138
Potassium 4.2
Chloride 107
Carbon Dioxide 29
BUN 26 H
Creatinine 0.8
Glucose 137 H
Calcium 9.6
Vital Signs:
Vital Signs
Temp Pulse Resp BP Pulse Ox
97.7 F 52 18 133/90 96
02/09/25 03:19 02/09/25 06:00 02/08/25 22:39 02/09/25 03:08 02/09/25 03:19
I&O
02/08/25 02/09/25 02/10/25
06:59 06:59 06:59
Intake Total 360 / 360 1390 / 1390
Output Total 2850 / 2850 800 / 800
Balance -2490 / -2490 590 / 590
Review of Systems
-
History Source: Patient
All other systems: Reviewed and negative
Physical Exam
-
General: Well Developed and No Apparent Distress
HEENT: Normocephalic, Atraumatic and Moist Mucous Membranes
Respiratory: Clear to Auscultation
Cardiac: Regular Rhythm and S1/S2; Negative Murmur, Rub or Gallop
GI: Soft, Nontender, Nondistended and Normal Bowel Sounds; Negative Organomegaly
Rectal: Deferred by Provider
Musculoskeletal: No Clubbing, No Cyanosis and Other (trace edema )
Skin: Negative Rash
Neuro: AO x 3, Nonfocal/Grossly Intact and Other (BILL, no facial asymmetry, speech normal )
Psych: Calm
Data Reviewed
-
Diagnostic Radiology: Report Reviewed by me
Labs: Labs Reviewed by me
[2025-02-09 07:39] LABS: Glucose - Point of Care 126 mg/dl (70-99)
[2025-02-09] MEDS: NOVOLOG FLEXPEN-LOW RESISTANCE SC ×2 (07:40→12:49)
[2025-02-09] MEDS: LASIX 40 MG IV ×2 (08:10→15:22)
[2025-02-09] MEDS: ALDACTONE 12.5 MG PO (08:11)
[2025-02-09] MEDS: PROTONIX 40 MG PO (08:12)
[2025-02-09] MEDS: PROSCAR 5 MG PO (08:12)
[2025-02-09] MEDS: LOW STRENGTH ASPIRIN 81 MG PO (08:12)
[2025-02-09] MEDS: PLAVIX 75 MG PO (08:12)
[2025-02-09] MEDS: COZAAR 25 MG PO (08:12)
[2025-02-09] MEDS: COLACE 100 MG PO (08:12)
[2025-02-09] MEDS: FARXIGA 10 MG PO (08:12)
[2025-02-09] MEDS: ZETIA 10 MG PO (08:12)
[2025-02-09] MEDS: CELEXA 40 MG PO (08:12)
[2025-02-09] MEDS: SINEMET 25-100 2 TABLET PO ×2 (08:12→15:22)
[2025-02-09] MEDS: TOPROL XL 25 MG PO ×2 (08:12→20:26)
[2025-02-09] MEDS: FLUSH (NSS) 1 FLUSH IV ×2 (08:13→15:25)
--- NOTE | 2025-02-09 09:53 | W.PN.CD ---
Today's Communication / Plan
-
Clinically stable. Trend troponin.
LHC tomorrow. Please keep n.p.o. past midnight.
Impression / Plan
-
79-year-old man with coronary artery disease (multivessel PCI 2008), heart failure with mildly reduced ejection fraction (45-50%), and mild aortic stenosis who presents for 3-4 weeks of shortness of breath.
Paper Products Printer: Swapnil
NSTEMI
- Diagnosis is a threat to life
- Troponin on admission 3.1, had been relatively flat, bumped a little this morning. We will trend.
- He is chest pain-free. No emergent indication for cardiac catheterization.
- Continue IV heparin with plan for C on Monday
- Continue aspirin and Plavix; ASA added for NSTEMI, previously on Plavix for history of stroke
- If he develops chest pain, would need more urgent cardiac catheterization
Left facial droop
- Stroke alert called on 02/07/2025 evening for left facial droop and dysarthria. 7-second run of NSVT preceding this
- CT head with no acute abnormalities
- Deficits have resolved
- Plan for MRI
HFrEF - acute on chronic (LVEF 30-35%)
- EF 45-50% on echo 05/2024. Now 30-35% on 02/07/2025, likely worse in the setting of NSTEMI as above
- GDMT:
- BB: Metoprolol started this admission
- FRANKIE/ARB/ARNI: continue losartan
- SGLT2 inhibitor: Continue dapagliflozin
- MRA: Continue spironolactone
- check daily weights, I&Os, follow BMP.
- Holding diuresis for now as he was having electrolyte derangements and lack of ectopy
- Will need repeat TTE in 3 months for consideration of primary prevention ICD
NSVT
- Improved with aggressive electrolyte repletion
- Continue metoprolol
- Monitor on telemetry
CAD - multivessel PCI 2008.
- stable on Plavix (h/o CVA).
HLD - stable on Pravastatin, Zetia and Praluent, continue.
Subjective: No chest pain. Shortness of breath is improving.
Physical Exam
Vital Signs/Labs
Vital Signs
Temp Pulse Resp BP Pulse Ox
98.2 F 56 20 117/75 98
02/09/25 07:52 02/09/25 08:12 02/09/25 07:52 02/09/25 08:12 02/09/25 07:52
02/08/25 02/09/25 02/10/25
06:59 06:59 06:59
Actual Weight 161 lb 9.581 oz
02/09/25 03:18
02/09/25 03:18
APTT 111.2 Sec (23.4-35.0) H 02/09/25 03:18
Magnesium 2.4 mg/dl (1.6-2.3) H 02/09/25 03:18
Triglycerides 73 mg/dl (10-149) 02/07/25 06:27
LDL Cholesterol, Calc 14 mg/dl 02/07/25 06:27
VLDL Cholesterol, Calc 14 mg/dl (0-30) 02/07/25 06:27
HDL Cholesterol 75 mg/dl 02/07/25 06:27
Free T4 1.33 ng/dl (0.78-2.19) 02/07/25 06:27
02/06/25
18:21
Inx-J-Cidnyhshzxs Pept 5340
LAB Results
02/06/25 02/06/25 02/07/25
18:21 21:35 04:22
Troponin I 3.100 H* 3.270 H* 3.470 H*
02/07/25 02/07/25 02/07/25
09:44 11:01 12:44
Troponin I Cancelled Cancelled 3.950 H*
02/07/25 02/08/25 02/09/25
16:56 11:33 03:18
Troponin I 3.850 H* 3.800 H* 4.870 H*
Physical Exam
Constitutional: No acute distress and Comfortable
Cardiovascular: Rhythm & rate is regular, Pedal edema is absent, S1S2 is normal and Murmur/rub/gallop absent
Respiratory: Respiratory effort normal and Lungs clear to auscul.
Data Reviewed
-
Date of Service: February 09, 2025
Medical Decision Making: Reviewed Test Results, Test Interpretation and Review of Case with other Provider
EKG: Tracing Personally Visualized and interpreted
Echo: Report Reviewed by me
Labs: Labs Reviewed by me
--- NOTE | 2025-02-09 09:55 | PTCARENOTE ---
received patient this am, helped patient get OOB with walker to chair, erick. well. monitor shows NSR with BBC, VSS. LUE restriction being maintained. IV heparin @ 1250units/hr via right AC without difficulties. Dr. Giron aware of troponins , will
check another troponin at 1030 with PTT.
[2025-02-09 10:09] LABS: Glycohemoglobin (HgbA1c) 6.3 % (4.0-5.6)
[2025-02-09 11:21] LABS: APTT > 200 Sec (23.4-35.0)
[2025-02-09 11:27] LABS: Troponin I 4.740 ng/ml
--- NOTE | 2025-02-09 11:31 | PTCARENOTE ---
patient is in MRI, PTT greater than 200, IV heparin is off as per protocol, will resume as per protocol, Dr. Giron aware.
--- NOTE | 2025-02-09 12:10 | W.PN.NEURO.1 ---
Today's Communication / Plan
-
.
Subjective/Objective
Subjective Data
Date of Service: February 09, 2025
Neurology follow-up note.
Mr. Noble reports no complaints. No reports of recurrent episodes of facial weakness.
TTE-LVEF 30-35%.
Brain MRI wo timmy-no evidence for acute infarct or intracranial metastatic disease.
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
PSH: Bilateral cataract surgery, PTCI, L3-L4 lumbar laminectomy, bilateral CTS surgery, Mohs surgery right ear, multiple melanomas resection
SH: , retired, former smoker, Does not drive, has a cane/walker but doesn't use it
FH: Noncontributory to current presentation
All:NKDA
ROS: General: Negative for fever, chills, fatigue, muscle aches, appetite or weight changes.
HEENT: Positive for transient visual disturbance (fuzzy vision lasting a few seconds). Negative for headache.
Cardiovascular: Negative for chest pain.
Respiratory: Positive for shortness of breath at rest and with exertion.
Gastrointestinal: Negative for abdominal pain.
Genitourinary: Negative for urinary difficulties.
Musculoskeletal: Positive for occasional balance issues.
Neurological: Positive for tingling in hands and feet. Negative for numbness, dizziness, or spinning sensation.
General: Well developed. In no acute distress.
Cardio: Regular rate and rhythm without murmur. Extremities are without cyanosis or edema.
Neuro:
Mental Status: Alert, oriented to person, place, and date. Normal attention and recall. Good fund of knowledge. Follows complex requests across the midline. Comprehension, naming, and repetition intact.
Cranial Nerves: Pupils are equally round, surgical. EOMs full. Visual rousseau full to confrontation. No ptosis. No nystagmus. Face symmetric. Impaired hearing AU. The palate elevated well. SCMs and traps 5/5. Tongue midline. No dysarthria.
Moderate hypophonia
Motor: Normal bulk and tone. No pronator or arm drift. Strength 5/5 throughout. No clonus.
Reflexes: 1+ throughout the upper extremities and 0 knees.
Sensory: Preserved vibration at the ankles.
Coordination: No dysmetria or tremor.
Gait: deferred
Assessment and Plan:
I. TIA. Likely mechanism-�hypercoagulable states, vs cardioembolism from left ventricular thrombus, heparin resistance, aortic or carotid plaque, paradoxical embolism via PFO. Heparin does not prevent platelet-rich thrombi or fully suppress
thrombin, so embolic stroke can occur even with therapeutic anticoagulation.
II. Metastatic melanoma
III. H/o IBM and LBD
- Fall and seizure precautions
- Continue aspirin 81 mg once a day and Plavix 75 mg once a day indefinitely
- DIMA to rule out intramural thrombus
- Will follow
I personally reviewed all radiology and labs along with past medical records pertinent to current medical problems. Total time spent in patient care is 35 minutes.
Thank you for allowing us to participate in the care of this patient. We will continue to follow. Please do not hesitate to contact us with any questions or concerns.
Objective Data
Vital Signs
Temp Pulse Resp BP Pulse Ox
36.8 C 51 20 117/75 98
02/09/25 07:52 02/09/25 10:00 02/09/25 07:52 02/09/25 08:12 02/09/25 08:30
Lab Results
02/09/25 03:18
02/09/25 03:18
APTT > 200 Sec (23.4-35.0) H* 02/09/25 10:38
Sodium 138 mmol/L (135-145) 02/09/25 03:18
Potassium 4.2 mmol/L (3.5-5.1) 02/09/25 03:18
BUN 26 mg/dl (9-20) H 02/09/25 03:18
Glucose 137 mg/dl (70-99) H 02/09/25 03:18
Calcium 9.6 mg/dl (8.4-10.2) 02/09/25 03:18
Jwg-C-Gammpuqcivg Pept 5340 pg/ml 02/06/25 18:21
LDL Cholesterol, Calc 14 mg/dl 02/07/25 06:27
Patient Allergies
pollen extracts Allergy (Verified 02/06/25 18:05)
SEASONAL-SNEEZING, RUNNY NOSE
Vital Signs and Labs
-
Vital Signs and Labs:
Vital Signs
Temp Pulse Resp BP Pulse Ox
36.8 C 51 20 117/75 98
02/09/25 07:52 02/09/25 10:00 02/09/25 07:52 02/09/25 08:12 02/09/25 08:30
Lab Results
02/09/25 03:18
02/09/25 03:18
APTT > 200 Sec (23.4-35.0) H* 02/09/25 10:38
Sodium 138 mmol/L (135-145) 02/09/25 03:18
Potassium 4.2 mmol/L (3.5-5.1) 02/09/25 03:18
BUN 26 mg/dl (9-20) H 02/09/25 03:18
Glucose 137 mg/dl (70-99) H 02/09/25 03:18
Calcium 9.6 mg/dl (8.4-10.2) 02/09/25 03:18
Qjo-M-Fvrdnqjjiyc Pept 5340 pg/ml 02/06/25 18:21
LDL Cholesterol, Calc 14 mg/dl 02/07/25 06:27
Medications
-
Medications:
Generic Name Dose Route Start Last Admin
Trade Name Freq PRN Reason Stop Dose Admin
Acetaminophen 650 mg 02/07/25 01:41
Acetaminophen 325 Mg Tablet PO 03/07/25 01:40
Q6HPRN PRN
mild pain
Aspirin 81 mg 02/08/25 09:00 02/09/25 08:12
Aspirin 81 Mg Chewable Tablet PO 03/08/25 08:59 81 mg
DAILY DARSHAN Administration
Carbidopa/Levodopa 2 tablet 02/07/25 08:00 02/09/25 08:12
Carbidopa (25 Mg)/Levodopa (100 Mg) Regular Release Tablet PO 03/07/25 07:59 2 tablet
BID@0800,1500 DARSHAN Administration
Citalopram Hydrobromide 40 mg 02/07/25 08:00 02/09/25 08:12
Citalopram 40 Mg Tablet PO 03/07/25 07:59 40 mg
DAILY DARSHAN Administration
Clopidogrel Bisulfate 75 mg 02/07/25 08:00 02/09/25 08:12
Clopidogrel 75 Mg Tablet PO 03/07/25 07:59 75 mg
DAILY DARSHAN Administration
Dapagliflozin 10 mg 02/07/25 08:00 02/09/25 08:12
Dapagliflozin (Farxiga) 10 Mg Tablet PO 03/07/25 07:59 10 mg
DAILY DARSHAN Administration
Dextrose 12.5 grams 02/07/25 02:00
Dextrose 50% (0.5 Grams/Ml) 50 Ml Syringe IV 03/07/25 01:59
[id number] PRN
hypoglycemia
Protocol
Divalproex Sodium 500 mg 02/07/25 22:00 02/08/25 21:21
Divalproex 250 Mg Extended Release (24 Hr) Tablet PO 03/07/25 21:59 500 mg
HS DARSHAN Administration
Docusate Sodium 100 mg 02/07/25 08:00 02/09/25 08:12
Docusate Sodium 100 Mg Capsule PO 03/07/25 07:59 100 mg
Q48H DARSHAN Administration
Ezetimibe 10 mg 02/07/25 08:00 02/09/25 08:12
Ezetimibe (Zetia) 10 Mg Tablet PO 03/07/25 07:59 10 mg
DAILY DARSHAN Administration
Finasteride 5 mg 02/07/25 08:00 02/09/25 08:12
Finasteride 5 Mg Tablet PO 03/07/25 07:59 5 mg
DAILY DARSHAN Administration
Furosemide 40 mg 02/07/25 08:00 02/09/25 08:10
Furosemide 40 Mg (10 Mg/Ml) 4 Ml Vial IV 03/07/25 07:59 40 mg
BID AT 0800,1600 DARSHAN Administration
Glucagon 1 mg 02/07/25 02:00
Glucagon 1 Mg Vial IM 03/07/25 01:59
PRN PRN
hypoglycemia - no IV access
Protocol
Hydralazine HCl 10 mg 02/07/25 19:08
Hydralazine 20 Mg/Ml Vial IV 03/07/25 19:07
Q4HPRN PRN
SBP >200
Heparin Sodium 25,000 units in 250 mls @ 0 mls/hr 02/06/25 23:00 02/08/25 22:36
Heparin 99010 Units/250 Ml IV 250 mls
PER PROTOCOL DARSHAN Administration
Protocol
Per Protocol
Nitroglycerin/Dextrose 100 mg in 250 mls @ 0 mls/hr 02/07/25 12:00
Nitroglycerin Premix IV
PER PROTOCOL DARSHAN
Protocol
Per Protocol
Insulin Aspart 0 units 02/07/25 07:30 02/09/25 07:40
Insulin Aspart Low Resistance 300 Units/3 Ml Pen.Injctr SC 03/07/25 07:29 Not Given
AC DARSHAN
Protocol
Levothyroxine Sodium 100 mcg 02/08/25 06:00 02/09/25 06:01
Levothyroxine 100 Mcg Tablet PO 03/08/25 05:59 100 mcg
SuSa@0600 DARSHAN Administration
Levothyroxine Sodium 50 mcg 02/07/25 06:00 02/07/25 06:40
Levothyroxine 50 Mcg Tablet PO 03/07/25 05:59 50 mcg
MoTuWeThFr@0600 DARSHAN Administration
Losartan Potassium 25 mg 02/08/25 08:00 02/09/25 08:12
Losartan 25 Mg Tablet PO 03/08/25 07:59 25 mg
DAILY DARSHAN Administration
Metoprolol Succinate 25 mg 02/07/25 12:00 02/09/25 08:12
Metoprolol 25 Mg Extended Release Tablet PO 03/07/25 11:59 25 mg
BID DARSHAN Administration
Nitroglycerin 0.4 mg 02/07/25 01:41
Nitroglycerin 0.4 Mg Sl Tablet SL 03/07/25 01:40
[id number] PRN
chest pain
Brexpiprazole [ 0 mg 02/07/25 18:00
Rexulti] 1 Mg Tablet PO 03/07/25 17:59
Take 2 Tablets (2 QPM DARSHAN
Mg) Po Qpm
Pantoprazole Sodium 40 mg 02/08/25 09:00 02/09/25 08:12
Pantoprazole 40 Mg Delayed Release Tablet PO 03/08/25 08:59 40 mg
DAILY DARSHAN Administration
Pravastatin Sodium 80 mg 02/07/25 22:00 02/08/25 21:21
Pravastatin 40 Mg Tablet PO 03/07/25 21:59 80 mg
HS DARSHAN Administration
Sodium Chloride 0 flush 02/07/25 02:00 02/09/25 08:13
Sodium Chloride 0.9% (Flush) Syringe IV 03/07/25 01:59 1 flush
PER PROTOCOL DARSHAN Administration
Spironolactone 12.5 mg 02/08/25 08:00 02/09/25 08:11
Spironolactone 12.5 Mg Dose (1/2 Of 25 Mg Tablet) PO 03/08/25 07:59 12.5 mg
DAILY DARSHAN Administration
Tamsulosin HCl 0.4 mg 02/07/25 22:00 02/08/25 21:23
Tamsulosin 0.4 Mg Capsule PO 03/07/25 21:59 0.4 mg
HS DARSHAN Administration
Home Medications
-
Home Medications
carbidopa 25 mg-levodopa 100 mg tablet 2 tab PO BID@0800,1500 Neurological Condition 02/17/22
coenzyme Q10 100 mg capsule (CoQ-10) 200 mg PO QPM Supplement 02/17/22
pravastatin 80 mg tablet 80 mg PO HS High cholesterol 02/17/22
tamsulosin 0.4 mg capsule 0.4 mg PO HS Urinary issue 02/17/22
finasteride 5 mg tablet 5 mg PO DAILY Urinary Issue 11/04/22
nitroglycerin 0.4 mg sublingual tablet 0.4 mg sublingual [id number] PRN chest pain 11/04/22
alirocumab 75 mg/mL subcutaneous pen injector (Praluent Pen) 75 mg SC Q14D 06/14/24
citalopram 40 mg tablet (Celexa) 40 mg PO DAILY 06/14/24
clopidogrel 75 mg tablet (Plavix) 75 mg PO DAILY 06/14/24
divalproex 250 mg tablet,extended release 24 hr 500 mg PO HS 06/14/24
docusate sodium 100 mg capsule (Colace) 100 mg PO Q48H 06/14/24
ezetimibe 10 mg tablet (Zetia) 10 mg PO DAILY 06/14/24
cholecalciferol (vitamin D3) 50 mcg (2,000 unit) capsule (Vitamin D3) 50 mcg PO DAILY 06/15/24
multivitamin 1 tab PO HS 06/15/24
dapagliflozin propanediol 10 mg tablet 10 mg PO DAILY #0 tabs 06/19/24
furosemide 40 mg tablet 40 mg PO DAILY #0 tabs 06/19/24
acetaminophen 325 mg tablet (Tylenol) 650 mg PO Q6HPRN PRN mild pain 02/06/25
brexpiprazole 1 mg tablet (Rexulti) 2 mg PO QPM 02/06/25
donepezil 10 mg tablet 10 mg PO HS 02/06/25
levothyroxine 100 mcg tablet (Synthroid) 100 mcg PO SUSA 02/06/25
levothyroxine 50 mcg tablet (Synthroid) 50 mcg PO MOTUWETHFR 02/06/25
losartan 25 mg tablet 25 mg PO DAILY 02/06/25
spironolactone 25 mg tablet 12.5 mg PO DAILY 02/06/25
[2025-02-09 12:45] LABS: Glucose - Point of Care 99 mg/dl (70-99)
--- NOTE | 2025-02-09 15:29 | PTCARENOTE ---
patient is inc. or urine, the new male external pouch put on patient and doing well. although urine is bloody, Dr. Giron aware, no further orders at this time.
[2025-02-09 17:14] LABS: Glucose - Point of Care 169 mg/dl (70-99)
[2025-02-09] MEDS: NOVOLOG FLEXPEN-LOW RESISTANCE 1 UNITS SC (17:49)
[2025-02-09] MEDS: HEPARIN 25000 UNITS/250 ML IV (20:01)
[2025-02-09 20:36] LABS: APTT 48.8 Sec (23.4-35.0)
--- NOTE | 2025-02-09 20:55 | PTCARENOTE ---
Assumed care on pt at 1900,pt OOB to chair at the time, aaox3, rings appropriately for assistance. Heparin infusing at 1050 unit/hour. SR/SB w/ PVC's on the monitor, HR 50-70's, Pox 100% RA. Denies cp, SOB or any other discomfort. Neurochecks
continuing q4hr and WNL. VSS. Pt updated on POC, Call segundo within reach.
[2025-02-09] MEDS: DEPAKOTE ER (24 HR RELEASE) 500 MG PO (21:48)
[2025-02-09] MEDS: PRAVACHOL 80 MG PO (21:48)
[2025-02-09] MEDS: FLOMAX 0.4 MG PO (21:48)
[2025-02-09 22:00] LABS: Glucose - Point of Care 149 mg/dl (70-99)
[2025-02-10] VITALS (16 sets, daily range): BP systolic 105–145; BP diastolic 69–106; PULSE 74; O2SAT 98; BMI 26.0; BMI 26.1
--- NOTE | 2025-02-10 01:55 | W.PN.UPDATE ---
Update Note
Progress Note Update
Per nursing staff patient had a witnessed fall, landed on his knee and elbows. On assessment, patient is alert and oriented, he was trying to get out of bed to the bathroom. No injury or bruises notes. FROM BUE and BLE. Denies pain.
Patient currently on neuro check. Fall precaution in place.
--- NOTE | 2025-02-10 03:08 | FALL ---
Addendum entered by Yesenia Lobo RN 02/10/25 06:00:
VS @ 0152 : BP141/95, Hr 77, Pox 99% RA, RR 18, T 98.4
Original Note:
Description of Fall:
PCT sitting at the nurses station (across pt's room), heard noises coming from pt's room and saw pt standing by the COW on the left side of the bed, loosing balance and falling. PCT witnessed pt trying to hold on the COW first, then sitting on the
floor without hitting his head. Pt stated that he forgot he had an external urinary device on and was trying to use the bathroom. Pt alert oriented at the time of fall and denied hitting head or having pain/discomfort from the fall. No injuries
noted from skin check, neuro checks completed and WNL. VSS.
Injuries Noted:
None
Action Taken:
overlock sleeve setter SALES SERVICE ASSISTANT made aware and at bedside to assess pt. Neuro checks ordered x48 post fall. Bed alarm, yellow fall risk band and yellow magnet added. VSS. Pt re-educated on the use of call light and verbalizes understanding. Nonskid socks on, bed in
the lowest position, call segundo within reach.
Name of Provider Notified:
MUSTAPHA Barnes
[2025-02-10 03:52] LABS: Hematocrit 46.7 % (39.0-52.0); Hemoglobin 15.5 g/dL (13.0-18.0); Mean Corp Hgb Conc. 33.2 g/dL (33.0-37.0); Mean Corpuscular Volume 87.6 fL (80.0-94.0); Platelet Count 187 10^3/uL (130-400); Red Cell Dist. Width 15.2 % (11.5-14.5)
[2025-02-10 04:05] LABS: APTT 77.1 Sec (23.4-35.0)
[2025-02-10 04:13] LABS: Blood Urea Nitrogen 30 mg/dl (9-20); Calcium 9.8 mg/dl (8.4-10.2); Carbon Dioxide 29 mmol/L (22-30); Chloride 103 mmol/L (98-107); Estimated Creatinine Clearance 63 ml/min; Glucose 122 mg/dl (70-99); Magnesium 2.3 mg/dl (1.6-2.3); Potassium 4.3 mmol/L (3.5-5.1); Sodium 139 mmol/L (135-145); eGFR > 60.00
[2025-02-10] MEDS: SYNTHROID 50 MCG PO (06:21)
--- NOTE | 2025-02-10 07:41 | W.PN.NEURO.1 ---
Today's Communication / Plan
-
Fall and seizure precautions
Continue aspirin 81 mg once a day and Plavix 75 mg once a day indefinitely
Continue Ezetimibe
Continue Donepezil
Neuro Assessment/Plan
Assessment
I. TIA. Likely mechanism- hypercoagulable states
II. Metastatic melanoma
III. H/o IBM and LBD
Plan
Fall and seizure precautions
Continue aspirin 81 mg once a day and Plavix 75 mg once a day indefinitely
Continue Ezetimibe
Continue Donepezil
Wll follow.
Subjective/Objective
Subjective Data
Date of Service: February 10, 2025
Objective Data
Vital Signs
Temp Pulse Resp BP Pulse Ox
36.6 C 57 18 114/73 94
02/10/25 06:51 02/10/25 04:47 02/10/25 06:51 02/10/25 04:47 02/10/25 06:51
Lab Results
02/10/25 02:53
02/10/25 02:53
APTT 77.1 Sec (23.4-35.0) H 02/10/25 02:53
Sodium 139 mmol/L (135-145) 02/10/25 02:53
Potassium 4.3 mmol/L (3.5-5.1) 02/10/25 02:53
BUN 30 mg/dl (9-20) H 02/10/25 02:53
Glucose 122 mg/dl (70-99) H 02/10/25 02:53
Calcium 9.8 mg/dl (8.4-10.2) 02/10/25 02:53
Hfp-O-Aokvbovhsvq Pept 5340 pg/ml 02/06/25 18:21
LDL Cholesterol, Calc 14 mg/dl 02/07/25 06:27
Patient Allergies
pollen extracts Allergy (Verified 02/06/25 18:05)
SEASONAL-SNEEZING, RUNNY NOSE
Data Reviewed
-
CT Head: Report Reviewed
Past History
Past History
ED Past Medical History: CAD, HTN and Hypercholesterolemia
ED Past Surgical History: Cardiac (PTCA with stents) and Orthopedic ((had laminectomy last month, Dr. Santillan).)
Social History
Tobacco: Non-smoker
Alcohol: Occasional
Drug: None
Personal:
Living: with family
Employment: Retired
Family History
Family History: Other (Noncontributory)
Medications
-
Medications:
Generic Name Dose Route Start Last Admin
Trade Name Freq PRN Reason Stop Dose Admin
Acetaminophen 650 mg 02/07/25 01:41
Acetaminophen 325 Mg Tablet PO 03/07/25 01:40
Q6HPRN PRN
mild pain
Aspirin 81 mg 02/08/25 09:00 02/09/25 08:12
Aspirin 81 Mg Chewable Tablet PO 03/08/25 08:59 81 mg
DAILY DARSHAN Administration
Carbidopa/Levodopa 2 tablet 02/07/25 08:00 02/09/25 15:22
Carbidopa (25 Mg)/Levodopa (100 Mg) Regular Release Tablet PO 03/07/25 07:59 2 tablet
BID@0800,1500 DARSHAN Administration
Citalopram Hydrobromide 40 mg 02/07/25 08:00 02/09/25 08:12
Citalopram 40 Mg Tablet PO 03/07/25 07:59 40 mg
DAILY DARSHAN Administration
Clopidogrel Bisulfate 75 mg 02/07/25 08:00 02/09/25 08:12
Clopidogrel 75 Mg Tablet PO 03/07/25 07:59 75 mg
DAILY DARSHAN Administration
Dapagliflozin 10 mg 02/07/25 08:00 02/09/25 08:12
Dapagliflozin (Farxiga) 10 Mg Tablet PO 03/07/25 07:59 10 mg
DAILY DARSHAN Administration
Dextrose 12.5 grams 02/07/25 02:00
Dextrose 50% (0.5 Grams/Ml) 50 Ml Syringe IV 03/07/25 01:59
[id number] PRN
hypoglycemia
Protocol
Divalproex Sodium 500 mg 02/07/25 22:00 02/09/25 21:48
Divalproex 250 Mg Extended Release (24 Hr) Tablet PO 03/07/25 21:59 500 mg
HS DARSHAN Administration
Docusate Sodium 100 mg 02/07/25 08:00 02/09/25 08:12
Docusate Sodium 100 Mg Capsule PO 03/07/25 07:59 100 mg
Q48H DARSHAN Administration
Ezetimibe 10 mg 02/07/25 08:00 02/09/25 08:12
Ezetimibe (Zetia) 10 Mg Tablet PO 03/07/25 07:59 10 mg
DAILY DARSHAN Administration
Finasteride 5 mg 02/07/25 08:00 02/09/25 08:12
Finasteride 5 Mg Tablet PO 03/07/25 07:59 5 mg
DAILY DARSHAN Administration
Furosemide 40 mg 02/07/25 08:00 02/09/25 15:22
Furosemide 40 Mg (10 Mg/Ml) 4 Ml Vial IV 03/07/25 07:59 40 mg
BID AT 0800,1600 DARSHAN Administration
Glucagon 1 mg 02/07/25 02:00
Glucagon 1 Mg Vial IM 03/07/25 01:59
PRN PRN
hypoglycemia - no IV access
Protocol
Hydralazine HCl 10 mg 02/07/25 19:08
Hydralazine 20 Mg/Ml Vial IV 03/07/25 19:07
Q4HPRN PRN
SBP >200
Heparin Sodium 25,000 units in 250 mls @ 0 mls/hr 02/06/25 23:00 02/09/25 20:01
Heparin 39247 Units/250 Ml IV 250 mls
PER PROTOCOL DARSHAN Administration
Protocol
Per Protocol
Insulin Aspart 0 units 02/07/25 07:30 02/10/25 08:29
Insulin Aspart Low Resistance 300 Units/3 Ml Pen.Injctr SC 03/07/25 07:29 Not Given
AC DARSHAN
Protocol
Levothyroxine Sodium 100 mcg 02/08/25 06:00 02/09/25 06:01
Levothyroxine 100 Mcg Tablet PO 03/08/25 05:59 100 mcg
[id number] DARSHAN Administration
Levothyroxine Sodium 50 mcg 02/07/25 06:00 02/10/25 06:21
Levothyroxine 50 Mcg Tablet PO 03/07/25 05:59 50 mcg
[id number]@599 DARSHAN Administration
Losartan Potassium 25 mg 02/08/25 08:00 02/09/25 08:12
Losartan 25 Mg Tablet PO 03/08/25 07:59 25 mg
DAILY DARSHAN Administration
Metoprolol Succinate 25 mg 02/07/25 12:00 02/09/25 20:26
Metoprolol 25 Mg Extended Release Tablet PO 03/07/25 11:59 25 mg
BID DARSHAN Administration
Nitroglycerin 0.4 mg 02/07/25 01:41
Nitroglycerin 0.4 Mg Sl Tablet SL 03/07/25 01:40
[id number] PRN
chest pain
Brexpiprazole [ 0 mg 02/07/25 18:00
Rexulti] 1 Mg Tablet PO 03/07/25 17:59
Take 2 Tablets (2 QPM DARSHAN
Mg) Po Qpm
Pantoprazole Sodium 40 mg 02/08/25 09:00 02/09/25 08:12
Pantoprazole 40 Mg Delayed Release Tablet PO 03/08/25 08:59 40 mg
DAILY DARSHAN Administration
Pravastatin Sodium 80 mg 02/07/25 22:00 02/09/25 21:48
Pravastatin 40 Mg Tablet PO 03/07/25 21:59 80 mg
HS DARSHAN Administration
Sodium Chloride 0 flush 02/07/25 02:00 02/09/25 15:25
Sodium Chloride 0.9% (Flush) Syringe IV 03/07/25 01:59 1 flush
PER PROTOCOL DARSHAN Administration
Spironolactone 12.5 mg 02/08/25 08:00 02/09/25 08:11
Spironolactone 12.5 Mg Dose (1/2 Of 25 Mg Tablet) PO 03/08/25 07:59 12.5 mg
DAILY DARSHAN Administration
Tamsulosin HCl 0.4 mg 02/07/25 22:00 02/09/25 21:48
Tamsulosin 0.4 Mg Capsule PO 03/07/25 21:59 0.4 mg
HS DARSHAN Administration
--- NOTE | 2025-02-10 08:00 | W.PN.HOSP.TC ---
Today's Communication/Plan
-
NPO for cardiac cath
appreciate consultants
Assessment / Plan
Assessment / Plan
Impression
79-year-old with past medical history significant for CAD status post NSTEMI with remote stents currently on Plavix, CHF with mildly reduced EF of around 45 to 50%, aortic sclerosis with mild stenosis, aortic valve gradient 15/8 mmHg suggestive of
mild aortic stenosis accompanied with dyspnea on exertion, shortness of breath, orthopnea over the last 2 weeks. No improvement despite increasing his Lasix to 40 mg daily. He has bilateral lower extremity edema, bilateral small pleural effusions
but otherwise no extensive volume overload. Incidentally his troponin was 3.2 although the patient has had no chest pain. He has no signs of an acute infectious process or inflammatory process at this time. Given troponin and worsening heart
failure we will have to consider his NSTEMI. He does not have cardiogenic shock at this time but BNP is elevated to 5000. No evidence of PE on CT scan.
NSTEMI
Known CAD with history of multivessel stenting in 2008
Concern for acute on chronic CHF mildly reduced EF (EF 45-50%)
Mild aortic stenosis
Essential hypertension
Dyslipidemia
Hypothyroidism
CVA by history.
Parkinson's disease
Plan
Non-STEMI.
-Troponin peaked at 3.9; re-trended post NSVT (see below) and up to 4.8
-TTE 02/07 with EF 30-35%; hypokinesis of anterior, anteroseptal inferoseptal and inferior hoffman new from prior
-appreciate Cardiology
-continue IV Heparin gtt
-s/p asa 325, start 81mg PO QD
-Continue Plavix
-New start Metoprolol
-Continue statin
-NPO for cardiac cath today
NSVT
-increased ectopy afternoon 02/08 responded to IV Mag rider
-keep K > 4, Mag > 2
-PVC's overnight, no further NSVT
Left Facial Droop and Mild Dysarthria
-stroke alert called evening of 02/07
-stat head CT without bleed
-telestroke consulted
-aspirin/Plavix as above
-MRI pending
HFrEF, acute exacerbation
-CT chest negative for PE.
-Reported recent increase of Lasix to 40 mg daily with no improvement of exertional dyspnea and orthopnea
-Admitted on IV Lasix 40 mg twice daily - on hold given ectopy
-INSPECTOR FINAL ASSEMBLY MECHANICAL GDMT: Spironolactone, Losartan
-continue INSPECTOR FINAL ASSEMBLY MECHANICAL Farxiga
No clear history of diabetes
-F/U A1c
BPH baseline continue Flomax
Hypothyroidism replacement with levothyroxine
Parkinson disease
Reportedly LBD
Continue preadmission regimen including Sinemet, Rexulti, Depakote, Celexa.
GI PPx: Start Protonix
Full code
DVT prophylaxis IV heparin
51 minutes spent on patient care
Anticipated Discharge: 24 - 48 hours
Subjective/Interval History
-
Date of Service: February 10, 2025
overall feeling well
awaiting procedure
no chest pain or palpitations
Objective Data
-
Labs:
Laboratory Results
02/09/25 02/10/25 02/10/25
20:19 02:53 10:15
WBC 6.0
Hgb 15.5
Hct 46.7
Plt Count 187
APTT 48.8 H 77.1 H Pending
Sodium 139
Potassium 4.3
Chloride 103
Carbon Dioxide 29
BUN 30 H
Creatinine 0.9
Glucose 122 H
Calcium 9.8
Vital Signs:
Vital Signs
Temp Pulse Resp BP Pulse Ox
97.8 F 57 18 114/73 94
02/10/25 06:51 02/10/25 04:47 02/10/25 06:51 02/10/25 04:47 02/10/25 06:51
I&O
02/09/25 02/10/25 02/11/25
06:59 06:59 06:59
Intake Total 1390 / 1390 126 / 126
Output Total 800 / 800 1200 / 1200
Balance 590 / 590 -1074 / -1074
Review of Systems
-
History Source: Patient
All other systems: Reviewed and negative
Physical Exam
-
General: Well Developed and No Apparent Distress
HEENT: Normocephalic, Atraumatic and Moist Mucous Membranes
Respiratory: Clear to Auscultation
Cardiac: Regular Rhythm and S1/S2; Negative Murmur, Rub or Gallop
GI: Soft, Nontender, Nondistended and Normal Bowel Sounds; Negative Organomegaly
Rectal: Deferred by Provider
Musculoskeletal: No Clubbing, No Cyanosis and Other (trace edema )
Skin: Negative Rash
Neuro: AO x 3, Nonfocal/Grossly Intact and Other (BILL, no facial asymmetry, speech normal )
Psych: Calm
Data Reviewed
-
Diagnostic Radiology: Report Reviewed by me
Labs: Labs Reviewed by me
[2025-02-10 08:05] LABS: Glucose - Point of Care 109 mg/dl (70-99)
[2025-02-10] MEDS: NOVOLOG FLEXPEN-LOW RESISTANCE SC ×3 (08:29→18:01)
--- NOTE | 2025-02-10 10:28 | CM ---
Pricing on Entresto through the patient's [facility] is $0, patient has met his deductible.
--- NOTE | 2025-02-10 10:32 | PTCARENOTE ---
Addendum entered by Linn Ng RN 02/10/25 12:40:
patient is having blood in urine with clots, Dr. Giron making rounds this am and saw the urine in canister.
Original Note:
received patient this am, ambulated to stretcher with walker, off balance but able to ambulate with walker and assist of 1. to carotid U/S. IV heparin @ 1250units/hr via right hand. monitor shows NSR with a first degree and PVC's, VSS. patient
remains NPO for heart cath today. Neuro checks completed please see flow sheet. blood work ordered and being obtained by development associate.
[2025-02-10 11:25] LABS: APTT 75.1 Sec (23.4-35.0)
[2025-02-10 11:31] LABS: VerifyNow Aspirin 581 ARU; VerifyNow PRU 125 PRU (180-376)
[2025-02-10] MEDS: FARXIGA 10 MG PO (12:06)
[2025-02-10] MEDS: TOPROL XL 25 MG PO ×2 (12:06→21:07)
[2025-02-10] MEDS: SINEMET 25-100 2 TABLET PO ×2 (12:06→16:38)
[2025-02-10] MEDS: ZETIA 10 MG PO (12:06)
[2025-02-10] MEDS: PROTONIX 40 MG PO (12:07)
[2025-02-10] MEDS: ALDACTONE 12.5 MG PO (12:07)
[2025-02-10] MEDS: COZAAR 25 MG PO (12:07)
[2025-02-10] MEDS: PROSCAR 5 MG PO (12:07)
[2025-02-10] MEDS: LOW STRENGTH ASPIRIN 81 MG PO (12:07)
[2025-02-10] MEDS: CELEXA 40 MG PO (12:07)
[2025-02-10] MEDS: FLUSH (NSS) 1 FLUSH IV (12:08)
[2025-02-10] MEDS: PLAVIX 75 MG PO (12:08)
[2025-02-10] MEDS: LASIX 40 MG IV (12:08)
--- NOTE | 2025-02-10 12:13 | CM ---
Chart reviewed. Patient's at bedside. Patient is independent of ADLS, lives with his in a multilevel, 2 HEATHER, 0 DME but has a RW , SPC, rollator and shower chair at home. Patient will need PT evaluation to see functional assessment.
Plan is for the patient to return home vs SNF. Patient has stayed at [facility] in the past. Plan is for the patient to return home. CM to follow
[2025-02-10 13:47] LABS: Glucose - Point of Care 132 mg/dl (70-99)
--- NOTE | 2025-02-10 13:52 | PTCARENOTE ---
TT Dr. Maurer that urine looks more burgundy to me, she wanted me to call her, we talked and ordered to turn off IV heparin now, Dr. Maurer is talking with iron installer.
--- NOTE | 2025-02-10 14:17 | W.PN.UPDATE ---
Update Note
Progress Note Update
patient with hematuria. Described as dark burgundy earlier, no clots. Heparin gtt now off and urine airborne sensor specialist. Discussed with Cardiology, recommends Urology consult as post cath he'll be committed to DAPT.
cath postponed, diet ordered
-UA ordered
-renal US with bladder
-Urology consult
--- NOTE | 2025-02-10 14:21 | W.PN.CD ---
Today's Communication / Plan
-
Lasix 80 mg IV this afternoon
Urology to see for hematuria
Impression / Plan
-
79-year-old man with coronary artery disease (multivessel PCI 2008), heart failure with mildly reduced ejection fraction (45-50%), and mild aortic stenosis who presents for 3-4 weeks of shortness of breath.
Personnel Generalist Manager: Swapnil
NSTEMI
- Diagnosis is a threat to life
- Troponin on admission 3.1, peaked at about 4.8
- He is chest pain-free. No emergent indication for cardiac catheterization.
- Holding IV heparin given new hematuria
- Continue aspirin and Plavix; ASA added for NSTEMI, previously on Plavix for history of stroke
- urorlogy to see given new hematuria
Hematuria
- urology to see
Left facial droop
- Stroke alert called on 02/07/2025 evening for left facial droop and dysarthria. 7-second run of NSVT preceding this
- CT head with no acute abnormalities
- Deficits have resolved
- Plan for MRI
HFrEF - acute on chronic (LVEF 30-35%)
- EF 45-50% on echo 05/2024. Now 30-35% on 02/07/2025, likely worse in the setting of NSTEMI as above
- GDMT:
- BB: Metoprolol started this admission
- FRANKIE/ARB/ARNI: continue losartan
- SGLT2 inhibitor: Continue dapagliflozin
- MRA: Continue spironolactone
- check daily weights, I&Os, follow BMP.
- IV lasix resumed
- Per family conts to have some SOB
- home weight is about 169
NSVT
- Improved with aggressive electrolyte repletion
- Continue metoprolol
- Monitor on telemetry
CAD - multivessel PCI 2008.
- stable on Plavix (h/o CVA).
HLD - stable on Pravastatin, Zetia and Praluent, continue.
Subjective: SOB remains intermittent
Physical Exam
Vital Signs/Labs
Vital Signs
Temp Pulse Resp BP Pulse Ox
97.8 F 86 18 120/69 99
02/10/25 11:35 02/10/25 12:07 02/10/25 11:35 02/10/25 12:08 02/10/25 11:35
02/09/25 02/10/25 02/11/25
06:59 06:59 06:59
Actual Weight 161 lb 9.581 oz 166 lb 7.184 oz
02/10/25 02:53
02/10/25 02:53
APTT 75.1 Sec (23.4-35.0) H 02/10/25 10:46
Magnesium 2.3 mg/dl (1.6-2.3) 02/10/25 02:53
Triglycerides 73 mg/dl (10-149) 02/07/25 06:27
LDL Cholesterol, Calc 14 mg/dl 02/07/25 06:27
VLDL Cholesterol, Calc 14 mg/dl (0-30) 02/07/25 06:27
HDL Cholesterol 75 mg/dl 02/07/25 06:27
Free T4 1.33 ng/dl (0.78-2.19) 02/07/25 06:27
02/06/25
18:21
Nwf-C-Kfhmqucpvao Pept 5340
LAB Results
02/07/25 02/08/25 02/09/25
16:56 11:33 03:18
Troponin I 3.850 H* 3.800 H* 4.870 H*
02/09/25
10:38
Troponin I 4.740 H*
Physical Exam
Constitutional: No acute distress and Comfortable
EENT: Anicteric
Cardiovascular: Rhythm & rate is regular and Pedal edema is absent
Respiratory: Respiratory effort normal and Lungs clear to auscul.
GI: Soft
Neuro/Psych: AO x 3
Data Reviewed
-
Date of Service: February 10, 2025
EKG: Tracing Personally Visualized and interpreted (sr)
Echo: Report Reviewed by me
Labs: Labs Reviewed by me
--- NOTE | 2025-02-10 14:32 | PTCARENOTE ---
Dr. Maurer came to unit, within 40min of heparin being turned off patients urine is punch colored now not burgundy. U/A sent as ordered. IV heparin drip will remain off as per Dr. Maurer. consult urology and obtain U/S of the renals.
[2025-02-10 14:42] LABS: Urine Character Clear (Clear)
[2025-02-10 14:47] LABS: Urine Squamous Cell 0-2 /LPF (Few)
[2025-02-10 14:48] LABS: Urine Red Blood Cell 60-70 /HPF (0-2); Urine White Cell 0-2 /HPF (0-5)
[2025-02-10] MEDS: LASIX 80 MG IV (16:39)
[2025-02-10 17:37] LABS: Glucose - Point of Care 149 mg/dl (70-99)
[2025-02-10 22:01] LABS: Glucose - Point of Care 133 mg/dl (70-99)
[2025-02-10] MEDS: DEPAKOTE ER (24 HR RELEASE) 500 MG PO (22:06)
[2025-02-10] MEDS: PRAVACHOL 80 MG PO (22:06)
[2025-02-10] MEDS: FLOMAX 0.4 MG PO (22:06)
--- NOTE | 2025-02-10 22:41 | CONS.URO ---
Consultation
-
Date/Time Consultation Performed: 02/10 1700
Performing Provider: Peffer
Reason for Consultation: Hematuria
Medical History
History of Present Illness
79M hx of BPH on tamsulosin and finasteride
Prior hx of renal stones seen incidentally on imaging
Admitted for NSTEMI and started on Plavix, heparin
Had planned cardiac cath today which was cancelled due to episode of mild gross hematuria
No dysuria, no urinary retention, no fever
UA benign other than blood
Red urine without clots resolved after 2 voids and since clear
Otherwise asymptomatic
Urology consulted to evtom prior to cath
Past med and surg hx:
PTCA with stents
laminectomy last month, Dr. Santillan
Type 2 diabetes mellitus without long-term current use of insulin
Benign prostatic hyperplasia with lower urinary tract symptoms
Hyperlipidemia
Essential (primary) hypertension
hyperaldosteronism
Former smoker
Allergic rhinitis
Hypercholesterolemia
History of coronary artery stent placement
Gynecomastia
Hyperaldosteronism
Age-related nuclear cataract, bilateral
Hypertension secondary to other renal disorders
Stented coronary artery
Incomplete right bundle branch block
Essential hypertension
Dyslipidemia
Cervical spinal cord compression
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
Parkinson disease, symptomatic
Atherosclerotic heart disease
History of laminectomy
Primary osteoarthritis of right hip
Alzheimer's disease, unspecified
Major depressive disorder,
Social History
Tobacco: Non-smoker
Alcohol: None
Drug: None
Family History
Family History: Reviewed & Not Pertinent
Allergies/Home Medications
Allergies
Allergy/AdvReac Type Severity Reaction Status Date / Time
pollen extracts Allergy SEASONAL-SNEEZING, Verified 02/06/25 18:05
RUNNY NOSE
Home Medications
�Medication �Instructions �Recorded �Confirmed �Type
carbidopa 25 mg-levodopa 100 mg 2 tab PO BID@0800,1500 02/17/22 02/06/25 History
tablet Neurological Condition
coenzyme Q10 100 mg capsule 200 mg PO QPM Supplement 02/17/22 02/06/25 History
(CoQ-10)
pravastatin 80 mg tablet 80 mg PO HS High cholesterol 02/17/22 02/06/25 History
tamsulosin 0.4 mg capsule 0.4 mg PO HS Urinary issue 02/17/22 02/06/25 History
finasteride 5 mg tablet 5 mg PO DAILY Urinary Issue 11/04/22 02/06/25 History
nitroglycerin 0.4 mg sublingual 0.4 mg sublingual [id number] PRN 11/04/22 02/06/25 History
tablet chest pain
alirocumab 75 mg/mL subcutaneous 75 mg SC Q14D 06/14/24 02/06/25 History
pen injector (Praluent Pen)
citalopram 40 mg tablet (Celexa) 40 mg PO DAILY 06/14/24 02/06/25 History
clopidogrel 75 mg tablet (Plavix) 75 mg PO DAILY 06/14/24 02/06/25 History
divalproex 250 mg tablet,extended 500 mg PO HS 06/14/24 02/06/25 History
release 24 hr
docusate sodium 100 mg capsule 100 mg PO Q48H 06/14/24 02/06/25 History
(Colace)
ezetimibe 10 mg tablet (Zetia) 10 mg PO DAILY 06/14/24 02/06/25 History
cholecalciferol (vitamin D3) 50 50 mcg PO DAILY 06/15/24 02/06/25 History
mcg (2,000 unit) capsule (Vitamin
D3)
multivitamin 1 tab PO HS 06/15/24 02/06/25 History
dapagliflozin propanediol 10 mg 10 mg PO DAILY #0 tabs 06/19/24 02/06/25 Rx
tablet
furosemide 40 mg tablet 40 mg PO DAILY #0 tabs 06/19/24 02/06/25 Rx
acetaminophen 325 mg tablet 650 mg PO Q6HPRN PRN mild pain 02/06/25 02/06/25 History
(Tylenol)
brexpiprazole 1 mg tablet (Rexulti) 2 mg PO QPM 02/06/25 02/06/25 History
donepezil 10 mg tablet 10 mg PO HS 02/06/25 02/06/25 History
levothyroxine 100 mcg tablet 100 mcg PO SUSA 02/06/25 02/06/25 History
(Synthroid)
levothyroxine 50 mcg tablet 50 mcg PO [id number] 02/06/25 02/06/25 History
(Synthroid)
losartan 25 mg tablet 25 mg PO DAILY 02/06/25 02/06/25 History
spironolactone 25 mg tablet 12.5 mg PO DAILY 02/06/25 02/06/25 History
Physical Exam
Vital Signs
Vital Signs
Temp Pulse Resp BP Pulse Ox
98.6 F 82 16 140/73 97
02/10/25 21:58 02/10/25 21:58 02/10/25 21:58 02/10/25 21:07 02/10/25 21:58
Lab / Testing Results
Laboratory Results
02/10/25 02:53
02/10/25 02:53
Physical Exam
General: Well Developed, Well Nourished and No Apparent Distress
Respiratory: Non Labored Respirations
GI: Soft and Non Tender
Genito-urinary: No Costovertebral Tend
Neuro: AO x 3
Psych: Calm and Intact Judgement
Assessment / Plan
-
79M admitted with NSTEMI
Brief self limited episode of gross hematuria preventing planned cardiac cath
- No evidence of UTI based on sx and urinalysis
- CTAP without contrast ordered and reviewed showing no clear cause of hematuria - no stones, urinary retention, renal mass, obstructive uropathy, bladder lesion
- Suspect BPH/large prostate and full anticoagulation led to prostate bleeding
- No contraindication to proceeding with cardiac cath and DAPT
- Trend any hematuria post procedure
- Consider outpatient cystoscopy after discharge - sees Dr. Bro outpatient
[2025-02-11] VITALS (17 sets, daily range): BP systolic 86–140; BP diastolic 43–111; BMI 25.3
--- NOTE | 2025-02-11 04:49 | PTCARENOTE ---
Pt's condom cath drained 850 ml clear yellow urine overnight, no blood visualized. NSR with BBB and frequent PVC's/PAC's on the monitor. Neurochecks WNL. No complaints of chest pain/discomfort. Bed alarm on.
[2025-02-11 05:06] LABS: Blood Urea Nitrogen 31 mg/dl (9-20); Calcium 9.2 mg/dl (8.4-10.2); Carbon Dioxide 31 mmol/L (22-30); Chloride 106 mmol/L (98-107); Estimated Creatinine Clearance 57 ml/min; Glucose 133 mg/dl (70-99); Magnesium 2.1 mg/dl (1.6-2.3); Potassium 3.9 mmol/L (3.5-5.1); Sodium 139 mmol/L (135-145); eGFR > 60.00
[2025-02-11] MEDS: SYNTHROID PO (05:10)
[2025-02-11] MEDS: SYNTHROID 50 MCG PO (05:11)
[2025-02-11 06:57] LABS: Glucose - Point of Care 125 mg/dl (70-99)
--- NOTE | 2025-02-11 07:39 | W.PN.HOSP.TC ---
Today's Communication/Plan
-
NPO for cardiac cath
hematuria resolved
Assessment / Plan
Assessment / Plan
Impression
79-year-old with past medical history significant for CAD status post NSTEMI with remote stents currently on Plavix, CHF with mildly reduced EF of around 45 to 50%, aortic sclerosis with mild stenosis, aortic valve gradient 15/8 mmHg suggestive of
mild aortic stenosis accompanied with dyspnea on exertion, shortness of breath, orthopnea over the last 2 weeks. No improvement despite increasing his Lasix to 40 mg daily. Troponin 3.2, no reported chest pain. TTE with WMA. Admitted for heart
failure and NSTEMI.
NSTEMI
Known CAD with history of multivessel stenting in 2008
Concern for acute on chronic CHF mildly reduced EF (EF 45-50%)
Mild aortic stenosis
Essential hypertension
Dyslipidemia
Hypothyroidism
CVA by history.
Parkinson's disease
CT A/P
IMPRESSION:
No renal or ureteral calculus. No bladder calculus.
There is mild bilateral perinephric soft tissue stranding, as well as right periureteral soft tissue stranding. There is minor wall thickening of the bladder with soft tissue stranding, possibly related to underdistention. However, the possibility
of a urinary tract infection cystitis/pyelonephritis may be considered in the proper clinical setting. Mild nonspecific presacral soft tissue edema
Diverticulosis without acute diverticulitis. Mild colonic fecal burden. No bowel obstruction.
Stable hepatic subcentimeters cyst. Interval development of 14 mm hepatic cyst.
Stable bilateral adrenal nodules, consistent with benign adenomas.
Plan
Non-STEMI.
-Troponin peaked at 3.9; re-trended post NSVT (see below) and up to 4.8
-TTE 02/07 with EF 30-35%; hypokinesis of anterior, anteroseptal inferoseptal and inferior hoffman new from prior
-appreciate Cardiology
-s/p asa 325, new start 81mg PO QD
-Continue Plavix
-New start Metoprolol
-Continue statin
-NPO for cardiac cath today (*cath placed on hold 02/10 given hematuria now resolved, see below)
NSVT
-increased ectopy afternoon 02/08 responded to IV Mag rider
-keep K > 4, Mag > 2
-PVC's overnight, no further NSVT
Hematuria
-s/p non-con CT without e/o stone of mass; UA with 0-2 WBC
-heparin gtt off and hematuria resolved
-appreciate Urology
Left Facial Droop and Mild Dysarthria
-stroke alert called evening of 02/07
-stat head CT without bleed
-telestroke consulted
-aspirin/Plavix as above
-MRI without e/o acute stroke
-appreciate Neurology
HFrEF, acute exacerbation
-CT chest negative for PE.
-Reported recent increase of Lasix to 40 mg daily with no improvement of exertional dyspnea and orthopnea
-continue IV Lasix for diuresis
-SENIOR COLDFUSION DEVELOPER GDMT: Spironolactone, Losartan
-continue SENIOR COLDFUSION DEVELOPER Farxiga
No clear history of diabetes
-F/U A1c
BPH baseline continue Flomax
Hypothyroidism replacement with levothyroxine
Parkinson disease
Reportedly LBD
Continue preadmission regimen including Sinemet, Rexulti, Depakote, Celexa.
GI PPx: Start Protonix
Full code
DVT PPx SCD
51 minutes spent on patient care
Anticipated Discharge: 24 - 48 hours
Subjective/Interval History
-
Date of Service: February 11, 2025
urine cleared up overnight
patient resting comfortably
Objective Data
-
Labs:
Laboratory Results
02/11/25
04:23
Sodium 139
Potassium 3.9
Chloride 106
Carbon Dioxide 31 H
BUN 31 H
Creatinine 1.0
Glucose 133 H
Calcium 9.2
Vital Signs:
Vital Signs
Temp Pulse Resp BP Pulse Ox
98.0 F 63 18 126/75 98
02/11/25 06:54 02/11/25 04:09 02/11/25 06:54 02/11/25 04:09 02/11/25 06:54
I&O
02/10/25 02/11/25 02/12/25
06:59 06:59 06:59
Intake Total 126 / 126 240 / 240
Output Total 1200 / 1200 2150 / 2150
Balance -1074 / -1074 -1909 / -1909
Review of Systems
-
History Source: Patient
All other systems: Reviewed and negative
Physical Exam
-
General: Well Developed and No Apparent Distress
HEENT: Normocephalic, Atraumatic and Moist Mucous Membranes
Respiratory: Clear to Auscultation
Cardiac: Regular Rhythm and S1/S2; Negative Murmur, Rub or Gallop
GI: Soft, Nontender, Nondistended and Normal Bowel Sounds; Negative Organomegaly
Rectal: Deferred by Provider
Musculoskeletal: No Clubbing, No Cyanosis and Other (trace edema )
Skin: Negative Rash
Neuro: AO x 3, Nonfocal/Grossly Intact and Other (BILL, no facial asymmetry, speech normal )
Psych: Calm
Data Reviewed
-
Diagnostic Radiology: Report Reviewed by me
Labs: Labs Reviewed by me
[2025-02-11] MEDS: NOVOLOG FLEXPEN-LOW RESISTANCE SC ×3 (08:00→17:10)
[2025-02-11] MEDS: PROTONIX 40 MG PO (08:38)
[2025-02-11] MEDS: FARXIGA 10 MG PO (08:38)
[2025-02-11] MEDS: ZETIA 10 MG PO (08:38)
[2025-02-11] MEDS: PLAVIX 75 MG PO (08:38)
[2025-02-11] MEDS: SINEMET 25-100 2 TABLET PO ×2 (08:38→14:51)
[2025-02-11] MEDS: PROSCAR 5 MG PO (08:39)
[2025-02-11] MEDS: CELEXA 40 MG PO (08:39)
[2025-02-11] MEDS: COLACE 100 MG PO (08:39)
[2025-02-11] MEDS: COZAAR 25 MG PO (08:39)
[2025-02-11] MEDS: ALDACTONE 12.5 MG PO (08:39)
[2025-02-11] MEDS: TOPROL XL 25 MG PO ×2 (08:39→21:38)
[2025-02-11] MEDS: LOW STRENGTH ASPIRIN 81 MG PO (08:39)
[2025-02-11] MEDS: LASIX 80 MG IV ×2 (08:40→19:53)
[2025-02-11] MEDS: FLUSH (NSS) 1 FLUSH IV (08:44)
--- NOTE | 2025-02-11 08:46 | W.PN.CD ---
Today's Communication / Plan
-
OK to eat breakfast
Cath later this afternoon
hold pm dose of lasix
Impression / Plan
-
79-year-old man with coronary artery disease (multivessel PCI 2008), heart failure with mildly reduced ejection fraction (45-50%), and mild aortic stenosis who presents for 3-4 weeks of shortness of breath.
Gas Generator Operator: Swapnil
NSTEMI
- Diagnosis is a threat to life
- Troponin on admission 3.1, peaked at about 4.8
- He is chest pain-free. No emergent indication for cardiac catheterization.
- Holding IV heparin given new hematuria
- Continue aspirin and Plavix; ASA added for NSTEMI, previously on Plavix for history of stroke
- urology no obvious source --> tamar prostate no procedure planned
Hematuria
- resolved
Left facial droop
- Stroke alert called on 02/07/2025 evening for left facial droop and dysarthria. 7-second run of NSVT preceding this
- CT head with no acute abnormalities
- Deficits have resolved
- Plan for MRI
HFrEF - acute on chronic (LVEF 30-35%)
- EF 45-50% on echo 05/2024. Now 30-35% on 02/07/2025, likely worse in the setting of NSTEMI as above
- GDMT:
- BB: Metoprolol started this admission
- FRANKIE/ARB/ARNI: continue losartan
- SGLT2 inhibitor: Continue dapagliflozin
- MRA: Continue spironolactone
- check daily weights, I&Os, follow BMP.
- IV lasix resumed
- Per family conts to have some SOB
- home weight is about 169
NSVT
- Improved with aggressive electrolyte repletion
- Continue metoprolol
- Monitor on telemetry
CAD - multivessel PCI 2008.
- stable on Plavix (h/o CVA).
HLD - stable on Pravastatin, Zetia and Praluent, continue.
Subjective: SOB maybe improved; no CP; urine is clear overall feeling OK
Physical Exam
Vital Signs/Labs
Vital Signs
Temp Pulse Resp BP Pulse Ox
98.0 F 87 18 128/95 98
02/11/25 06:54 02/11/25 08:40 02/11/25 06:54 02/11/25 08:40 02/11/25 06:54
02/10/25 02/11/25 02/12/25
06:59 06:59 06:59
Actual Weight 166 lb 7.184 oz
02/10/25 02:53
02/11/25 04:23
APTT 75.1 Sec (23.4-35.0) H 02/10/25 10:46
Magnesium 2.1 mg/dl (1.6-2.3) 02/11/25 04:23
Triglycerides 73 mg/dl (10-149) 02/07/25 06:27
LDL Cholesterol, Calc 14 mg/dl 02/07/25 06:27
VLDL Cholesterol, Calc 14 mg/dl (0-30) 02/07/25 06:27
HDL Cholesterol 75 mg/dl 02/07/25 06:27
Free T4 1.33 ng/dl (0.78-2.19) 02/07/25 06:27
02/06/25
18:21
Uyv-D-Yzogwlkhpan Pept 5340
LAB Results
02/08/25 02/09/25 02/09/25
11:33 03:18 10:38
Troponin I 3.800 H* 4.870 H* 4.740 H*
Physical Exam
Constitutional: No acute distress and Comfortable
Cardiovascular: Rhythm & rate is regular
Respiratory: Respiratory effort normal and Lungs clear to auscul.
GI: Soft
Neuro/Psych: AO x 3
Data Reviewed
-
Date of Service: February 11, 2025
EKG: Tracing Personally Visualized and interpreted (sr)
Echo: Report Reviewed by me
Labs: Labs Reviewed by me
--- NOTE | 2025-02-11 10:27 | PTCARENOTE ---
received patient this am sleepy but easily aroused. up OOB to scale and then chair. Dr. Kraft came in room patient will go for heart cath today, able to eat breakfast as per MD, monitor shows NSR with PVC's, VSS. NIH Q shift, please see flow
sheet. condom cath intact draining clear yellow urine. chair alarm remains on.
[2025-02-11 11:30] LABS: Glucose - Point of Care 114 mg/dl (70-99)
--- NOTE | 2025-02-11 11:38 | CM ---
Chart reviewed. Patient is independent of ADLS, lives with his in a multilevel home, 2 HEATHER, does not use any DME but has a SPC, rollator, RW and also has a stairglide and shower chair. PT evaluation recommending SNF vs Acute. Referrals
sent to [facility], [place] and [facility] as per request of the patient's . Plan is for the patient to go to Acute vs SNF when medically stable for discharge. CM to follow
--- NOTE | 2025-02-11 13:02 | PN.CDI ---
CDI
- -
CDI:
Physician Documentation Request
Admit Date: 02/06/25 23:58
Dear Doctor Erasto,
Patient admitted for NSTEMI.
02/10 PCN: 'within 40min of heparin being turned off patients urine is punch colored now not burgundy. U/A sent as ordered. IV heparin drip will remain off as per Dr. Maurer.'
02/11 Hospitalist PN: 'Hematuria...heparin gtt off and hematuria resolved'
Please clarify the relationship between these conditions:
Yes, hematuria is related to/associated with/due to heparin.
No,hematuria is not related to/associated with/due to heparin but it is due to ___. (Please specify)
Unable to determine
Use of terms such as suspected, likely, concern for, or probable (associated with a specific diagnosis that is being evaluated, monitored, or treated as if it exists) are acceptable and can be coded in the inpatient setting, when documented at the
time of discharge.
Thank you,
Brenda Fagan RN, BSN
CDI Specialist
Available via [place] text
Please use your independent medical judgment in providing your response.
--- NOTE | 2025-02-11 15:21 | PTCARENOTE ---
patient called out c/o buttocks hurting, patient stood up from chair and he was wet, condom cath off and buttocks is reddened. washed patient, new condom cath and put moisture barrier on buttocks. gave patient a waffle cushion to sit on.
[2025-02-11 17:08] LABS: Glucose - Point of Care 116 mg/dl (70-99)
--- NOTE | 2025-02-11 17:39 | PTCARENOTE ---
report given to salvage laborer.
--- NOTE | 2025-02-11 18:30 | PTCARENOTE ---
received patient form laborer [employer], very lethargic but awakens to voice and able to answer questions. right R band intact, hand dusky, o2 sat 93%, monitor show NSR with freq. PVC's, VSS.
--- NOTE | 2025-02-11 19:17 | ITS.CL.PN ---
Ore Dressing Engineer - Procedure Note
Procedure
Procedure Note:
CARDIAC CATHETERIZATION REPORT
Date of Procedure: 02/11/2025
Referring: Dr. Julio C Kraft MD
Indication: Heart failure, NSTEMI
PROCEDURE(S)
1. left heart catheterization
2. coronary angiography
ACCESS: 6F right radial artery (closure: radial band)
CATHETERS
1. 6F JR4
2. 6F JL3.5
MODERATE SEDATION: 35 minutes of moderate sedation was utilized. An independent medical insurance coder was present to assist with and help manage the patient's level of consciousness and physiologic status.
HEMODYNAMIC DATA
LV 125/17 (EDP 27) mmHg
AO 121/86 (mean 101) mmHg
CORONARY ANGIOGRAPHY
Dominance: Right
LM: Large vessel with mild distal tapering
LAD: Large vessel giving rise to large D1 and several small diagonals before wrapping around the apex. There is a stent in the mid LAD after the diagonal with moderate ISR. There is a long 50% stenosis in the distal vessel and a severe stenosis in
the apical vessel. The diagonal has a stent in the mid body with focally severe ISR and JOSE L-3 flow.
LCx: Large vessel giving rise to a large OM1 and several small LPL branches. The OM1 has a stent in its proximal aspect with mild-moderate ISR. There is otherwise mild diffuse disease.
RCA: Chronically occluded proximally within stent with troy-ra-lwwzo collaterals
RADIATION: dose 122 mGy; DAP 9.17 Gy*cm2; fluoroscopy time 3.0 min
CONCLUSIONS
1. Multivessel coronary artery disease as described with no clear culprit lesion, suggesting the patient's troponin elevation is more consistent with type II NSTEMI in the setting of heart failure with severe underlying coronary disease.
2. Elevated LV filling pressure and no aortic stenosis on hemodynamic pullback
RECOMMENDATIONS
1. Aggressive secondary prevention of coronary artery disease
2. Treatment of acute heart failure exacerbation and ischemic cardiomyopathy with diuresis as needed and titration of GDMT.
Copy to: Dr. Julio C Kraft MD (pipe bending machine operator); Dr. Olvin Gibson MD (PCP)
Signed: Tristan Harris MD, PhD
[2025-02-11 20:55] LABS: Glucose - Point of Care 141 mg/dl (70-99)
[2025-02-11] MEDS: DEPAKOTE ER (24 HR RELEASE) 500 MG PO (22:28)
[2025-02-11] MEDS: FLOMAX 0.4 MG PO (22:29)
[2025-02-11] MEDS: PRAVACHOL 80 MG PO (22:29)
[2025-02-12] VITALS (11 sets, daily range): BP systolic 91–115; BP diastolic 58–90; PULSE 73; BMI 25.2
--- NOTE | 2025-02-12 01:39 | PTCARENOTE ---
assumed care of patient at the change of shift. AAOx3. NIH 0. neuro intact. R radial band removed per protocol; no issues. assisted patient oob to the bathroom and chair- ate dinner. patient states having some [place]- baseline per patient. 'not getting
worse.' 93% on RA. SR with frequent PVCs; bigeminy at times. bp stable. 80 IV lasix given. updated Bethany Mortensen remer PAINTING MACHINE OPERATOR on rhythm and am potassium level. no new orders; will check labs in morning. incont of urine. bed/chair alarms for safety.
educated patient to inform RN with any changes. call segundo within reach.
[2025-02-12 05:02] LABS: Hematocrit 45.4 % (39.0-52.0); Hemoglobin 14.9 g/dL (13.0-18.0); Mean Corp Hgb Conc. 32.8 g/dL (33.0-37.0); Mean Corpuscular Volume 86.1 fL (80.0-94.0); Platelet Count 195 10^3/uL (130-400); Red Cell Dist. Width 15.3 % (11.5-14.5)
[2025-02-12] MEDS: SYNTHROID 50 MCG PO (05:11)
[2025-02-12] MEDS: TYLENOL 650 MG PO (05:11)
[2025-02-12 05:25] LABS: Calcium 9.7 mg/dl (8.4-10.2); Carbon Dioxide 28 mmol/L (22-30); Chloride 105 mmol/L (98-107); Estimated Creatinine Clearance 63 ml/min; Glucose 129 mg/dl (70-99); Magnesium 2.3 mg/dl (1.6-2.3); Potassium 4.0 mmol/L (3.5-5.1); Sodium 138 mmol/L (135-145); eGFR > 60.00
[2025-02-12 05:35] LABS: Blood Urea Nitrogen 36 mg/dl (9-20)
[2025-02-12 07:07] LABS: Glucose - Point of Care 110 mg/dl (70-99)
[2025-02-12] MEDS: NOVOLOG FLEXPEN-LOW RESISTANCE SC ×3 (07:26→16:44)
--- NOTE | 2025-02-12 07:49 | W.PN.HOSP.TC ---
Today's Communication/Plan
-
diuresis
GDMT
appreciate Cardiology and Urology
Assessment / Plan
Assessment / Plan
Impression
79-year-old with past medical history significant for CAD status post NSTEMI with remote stents currently on Plavix, CHF with mildly reduced EF of around 45 to 50%, aortic sclerosis with mild stenosis, aortic valve gradient 15/8 mmHg suggestive of
mild aortic stenosis accompanied with dyspnea on exertion, shortness of breath, orthopnea over the last 2 weeks. No improvement despite increasing his Lasix to 40 mg daily. Troponin 3.2, no reported chest pain. TTE with WMA. Admitted for heart
failure and NSTEMI now s/p cardiac cath without culptit lesion and e/o increased filling pressures.
CT A/P
IMPRESSION:
No renal or ureteral calculus. No bladder calculus.
There is mild bilateral perinephric soft tissue stranding, as well as right periureteral soft tissue stranding. There is minor wall thickening of the bladder with soft tissue stranding, possibly related to underdistention. However, the possibility
of a urinary tract infection cystitis/pyelonephritis may be considered in the proper clinical setting. Mild nonspecific presacral soft tissue edema
Diverticulosis without acute diverticulitis. Mild colonic fecal burden. No bowel obstruction.
Stable hepatic subcentimeters cyst. Interval development of 14 mm hepatic cyst.
Stable bilateral adrenal nodules, consistent with benign adenomas.
Cardiac Cath 02/11/25
CONCLUSIONS
1. Multivessel coronary artery disease as described with no clear culprit lesion, suggesting the patient's troponin elevation is more consistent with type II NSTEMI in the setting of heart failure with severe underlying coronary disease.
2. Elevated LV filling pressure and no aortic stenosis on hemodynamic pullback
Plan:
Type II NSTEMI in setting of heart failure
-Troponin peaked at 3.9; re-trended post NSVT (see below) and up to 4.8
-appreciate Cardiology
-TTE 02/07 with EF 30-35%; hypokinesis of anterior, anteroseptal inferoseptal and inferior hoffman new from prior
-s/p cardiac cath on 02/11 showing multivessel coronary artery disease without culprit lesion, no PCI
-continue SUBSTATION DESIGN DRAFTSPERSON Plavix 75mg PO QD + new start aspirin
-New start Metoprolol
-Continue statin
HFrEF, acute exacerbation
-CT chest negative for PE.ea
-TTE results above, EF 30-35%
-wedge pressure elevated on cardiac cath 02/11
-continue diuresis
-GDMT: Spironolactone, Losartan, Metop XL
-continue SUBSTATION DESIGN DRAFTSPERSON Farxiga
NSVT
-increased ectopy afternoon 02/08 responded to IV Mag rider
-keep K > 4, Mag > 2
-PVC's overnight, no further NSVT
Hematuria
-s/p non-con CT without e/o stone of mass; UA with 0-2 WBC
-heparin gtt off and hematuria resolved
-appreciate Urology
Left Facial Droop and Mild Dysarthria
-stroke alert called evening of 02/07
-stat head CT without bleed
-telestroke consulted
-aspirin/Plavix as above
-MRI without e/o acute stroke
-appreciate Neurology
No clear history of diabetes
-A1c 6.3% - prediabetic
BPH baseline continue Flomax
Hypothyroidism replacement with levothyroxine
Parkinson disease
Reportedly LBD
Continue preadmission regimen including Sinemet, Rexulti, Depakote, Celexa.
GI PPx: Start Protonix
Full code
DVT PPx SCD
51 minutes spent on patient care
Anticipated Discharge: 24 - 48 hours
Subjective/Interval History
-
Date of Service: February 12, 2025
feeling ok
much better than admission
no chest pain
Objective Data
-
Labs:
Laboratory Results
10/01/25
04:31
WBC 7.2
Hgb 14.9
Hct 45.4
Plt Count 195
Sodium 138
Potassium 4.0
Chloride 105
Carbon Dioxide 28
BUN 36 H
Creatinine 0.9
Glucose 129 H
Calcium 9.7
Vital Signs:
Vital Signs
Temp Pulse Resp BP Pulse Ox
97 F 67 20 103/58 95
02/12/25 07:03 02/12/25 07:02 02/12/25 07:03 02/12/25 07:02 02/12/25 07:03
I&O
02/11/25 02/12/25 02/13/25
06:59 06:59 06:59
Intake Total 240 / 240 500 / 500
Output Total 2150 / 2150 500 / 500
Balance -1910 / -1910 0 / 0
Review of Systems
-
History Source: Patient
All other systems: Reviewed and negative
Physical Exam
-
General: Well Developed and No Apparent Distress
HEENT: Normocephalic, Atraumatic and Moist Mucous Membranes
Respiratory: Clear to Auscultation
Cardiac: Regular Rhythm and S1/S2; Negative Murmur, Rub or Gallop
GI: Soft, Nontender, Nondistended and Normal Bowel Sounds; Negative Organomegaly
Rectal: Deferred by Provider
Musculoskeletal: No Clubbing, No Cyanosis, Edema, Right Lower Extrem and Edema, Left Lower Extrem
Skin: Negative Rash
Neuro: AO x 3, Nonfocal/Grossly Intact and Other (BILL, no facial asymmetry, speech normal )
Psych: Calm
Data Reviewed
-
Diagnostic Radiology: Report Reviewed by me
Labs: Labs Reviewed by me
[2025-02-12] MEDS: COZAAR 25 MG PO (08:01)
[2025-02-12] MEDS: TOPROL XL 25 MG PO ×2 (08:01→20:22)
[2025-02-12] MEDS: SINEMET 25-100 2 TABLET PO ×2 (08:01→16:40)
[2025-02-12] MEDS: PROTONIX 40 MG PO (08:01)
[2025-02-12] MEDS: CELEXA 40 MG PO (08:01)
[2025-02-12] MEDS: ALDACTONE 12.5 MG PO (08:01)
[2025-02-12] MEDS: ZETIA 10 MG PO (08:01)
[2025-02-12] MEDS: LOW STRENGTH ASPIRIN 81 MG PO (08:01)
[2025-02-12] MEDS: FARXIGA 10 MG PO (08:01)
[2025-02-12] MEDS: PROSCAR 5 MG PO (08:01)
[2025-02-12] MEDS: PLAVIX 75 MG PO (08:02)
[2025-02-12] MEDS: LASIX 80 MG IV ×2 (08:02→16:41)
--- NOTE | 2025-02-12 08:18 | W.PN.UPDATE ---
Update Note
Progress Note Update
pt stable this am
has been voiding into condom cath- clear- no complaints
had cardiac cath yesterday- no new stents placed- plan for medical therapy
reviewed with pt and hospitalist
continue flomax and proscar
outpt f/u for urine check
--- NOTE | 2025-02-12 10:25 | PTCARENOTE ---
Pt is AOx3, no complaints of pain or discomfort. SR w/ PVCs on tele, VSS. BLood sugars monitored. Assist x1 OOB with walker. Call segundo within reach.
--- NOTE | 2025-02-12 11:33 | PTOTSP ---
Speech Therapy
Tolerating current diet without coughing or other overt signs of aspiration, though chronic risk factors for dysphagia remain including PD, CAD, and chronic symptoms of laryngeal dysfunction documented as far back as 02/2022.
Recommend
1. No further ST for dysphagia.
2. Consider outpatient voice evaluation/ENT given ongoing hoarse vocal quality and low volume that is associated with PD.
[2025-02-12 11:47] LABS: Glucose - Point of Care 176 mg/dl (70-99)
[2025-02-12 12:50] LABS: Glucose - Point of Care 147 mg/dl (70-99)
--- NOTE | 2025-02-12 13:15 | W.PN.CD ---
Addendum entered and electronically signed by Devaughn Trejo MD 02/12/25 14:10:
Patient seen and examined in collaboration with COIL CONNECTOR; agree with below.
- Acute on chronic HFrEF.
- Continue Lasix 80 mg IV twice daily.
Original Note:
Today's Communication / Plan
-
-continue IV lasix and monitor response/renal function
-continue GDMT as tolerated
Impression / Plan
-
79-year-old man with coronary artery disease (multivessel PCI 2008), heart failure with mildly reduced ejection fraction (45-50%), and mild aortic stenosis who presents for 3-4 weeks of shortness of breath.
Psych Assistant: Swapnil
Type II SC, in setting of CHF with underlying severe CAD:
-Troponin peaked at 4.9
-no CP
-Cath 02/11:25: Multivessel coronary artery disease (see cath report for details) with no clear culprit lesion. Elevated LV filling pressure and no aortic stenosis on hemodynamic pullback.
-patient on ASA and Plavix currently- continue with neuro event (poss TIA per neuro note). As OP, was just Plavix for hx CVA.
Hematuria:
-resolved
-urology on the case
Left facial droop
- Stroke alert called on 02/07/2025 evening for left facial droop and dysarthria. 7-second run of NSVT preceding this
- CT head with no acute abnormalities
- Deficits have resolved
HFrEF - acute on chronic (LVEF 30-35%)
- EF 45-50% on echo 05/2024. Now 30-35% on 02/07/2025. Cath as noted.
- GDMT:
- BB: Metoprolol started this admission
- FRANKIE/ARB/ARNI: continue losartan
- SGLT2 inhibitor: Continue dapagliflozin
- MRA: Continue spironolactone
- check daily weights, I&Os, follow BMP.
- continue IV lasix, which requires intensive monitoring
NSVT
- Improved with aggressive electrolyte repletion
- Continue metoprolol
- Monitor on telemetry- currently SR with PVC's, periods of AIVR- no symptoms
CAD - multivessel PCI 2008.
- stable on Plavix (h/o CVA).
HLD - stable on Pravastatin, Zetia and Praluent, continue.
Subjective:
Denies CP
Breathing unchanged
significant urination per patient
Physical Exam
Vital Signs/Labs
Vital Signs
Temp Pulse Resp BP Pulse Ox
97.5 F 71 16 102/87 92
02/12/25 11:46 02/12/25 11:42 02/12/25 11:46 02/12/25 11:42 02/12/25 11:46
02/11/25 02/12/25 02/13/25
06:59 06:59 06:59
Actual Weight 73 kg
02/12/25 04:31
02/12/25 04:31
APTT 75.1 Sec (23.4-35.0) H 02/10/25 10:46
Magnesium 2.3 mg/dl (1.6-2.3) 02/12/25 04:31
Triglycerides 73 mg/dl (10-149) 02/07/25 06:27
LDL Cholesterol, Calc 14 mg/dl 02/07/25 06:27
VLDL Cholesterol, Calc 14 mg/dl (0-30) 02/07/25 06:27
HDL Cholesterol 75 mg/dl 02/07/25 06:27
Free T4 1.33 ng/dl (0.78-2.19) 02/07/25 06:27
02/06/25
18:21
Vod-D-Xgmoyxqsvhc Pept 5340
Physical Exam
Constitutional: No acute distress
EENT: Anicteric
Cardiovascular: Rhythm & rate is regular
Respiratory: Respiratory effort normal and Other (lung sounds diminished to bases)
Neuro/Psych: AO x 3
Data Reviewed
-
Date of Service: February 12, 2025
EKG: Other (SR, AIVR, PVC's)
Labs: Labs Reviewed by me
--- NOTE | 2025-02-12 15:07 | CM ---
Reviewed cjart. Telephone call to Mrs. Noble to review discharge plans. She states she is hoping to have him go to SNF/Rehab. when stable or discharge. She states he has been in [facility] in the past. Referral has been made. Telephone
call to [facility] admission to check on bed availability. [facility] will have a bed on if he is ready for transfer. Will need to check if there will be a bed on Monday. Medical work-up in progress. The discharge plan is to go to [facility] [place]
[facility] SNF if bed available when medically stable. .
[2025-02-12 16:29] LABS: Glucose - Point of Care 125 mg/dl (70-99)
[2025-02-12] MEDS: PRAVACHOL 80 MG PO (20:28)
[2025-02-12] MEDS: DEPAKOTE ER (24 HR RELEASE) 500 MG PO (20:28)
[2025-02-12] MEDS: FLOMAX 0.4 MG PO (20:28)
[2025-02-12 22:11] LABS: Glucose - Point of Care 150 mg/dl (70-99)
[2025-02-13] VITALS (26 sets, daily range): BP systolic 88–131; BP diastolic 61–91; BMI 25.5
--- NOTE | 2025-02-13 01:17 | PTCARENOTE ---
Pt. OOB with assist x 1 & RW this shift, generally weak. Lungs diminished, RA pulse ox 96%. Pt. complaining of orthopnea, HOB kept elevated & 2L O2 applied with relief of symptoms. NSR with BBB and very frequent PVC's/bigeminy on the monitor
(less while pt. sleeping and since O2 applied). NIH 0, pt. alert and oriented. Bed alarm on.
[2025-02-13 05:04] LABS: Blood Urea Nitrogen 46 mg/dl (9-20); Calcium 9.7 mg/dl (8.4-10.2); Carbon Dioxide 29 mmol/L (22-30); Chloride 104 mmol/L (98-107); Estimated Creatinine Clearance 63 ml/min; Glucose 158 mg/dl (70-99); Magnesium 2.3 mg/dl (1.6-2.3); Potassium 4.0 mmol/L (3.5-5.1); Sodium 138 mmol/L (135-145); eGFR > 60.00
[2025-02-13] MEDS: SYNTHROID 50 MCG PO (06:18)
--- NOTE | 2025-02-13 07:20 | W.PN.HOSP.TC ---
Today's Communication/Plan
-
continue diuresis
wean oxygen
follow up further Cardiology recommendations; approaching DC to SNF
Assessment / Plan
Assessment / Plan
Impression
79-year-old with past medical history significant for CAD status post NSTEMI with remote stents currently on Plavix, CHF with mildly reduced EF of around 45 to 50%, aortic sclerosis with mild stenosis, aortic valve gradient 15/8 mmHg suggestive of
mild aortic stenosis accompanied with dyspnea on exertion, shortness of breath, orthopnea over the last 2 weeks. No improvement despite increasing his Lasix to 40 mg daily. Troponin 3.2, no reported chest pain. TTE with WMA. Admitted for heart
failure and NSTEMI now s/p cardiac cath without culptit lesion and e/o increased filling pressures.
CT A/P
IMPRESSION:
No renal or ureteral calculus. No bladder calculus.
There is mild bilateral perinephric soft tissue stranding, as well as right periureteral soft tissue stranding. There is minor wall thickening of the bladder with soft tissue stranding, possibly related to underdistention. However, the possibility
of a urinary tract infection cystitis/pyelonephritis may be considered in the proper clinical setting. Mild nonspecific presacral soft tissue edema
Diverticulosis without acute diverticulitis. Mild colonic fecal burden. No bowel obstruction.
Stable hepatic subcentimeters cyst. Interval development of 14 mm hepatic cyst.
Stable bilateral adrenal nodules, consistent with benign adenomas.
Cardiac Cath 02/11/25
CONCLUSIONS
1. Multivessel coronary artery disease as described with no clear culprit lesion, suggesting the patient's troponin elevation is more consistent with type II NSTEMI in the setting of heart failure with severe underlying coronary disease.
2. Elevated LV filling pressure and no aortic stenosis on hemodynamic pullback
Plan:
Type II NSTEMI in setting of heart failure
-Troponin peaked at 3.9; re-trended post NSVT (see below) and up to 4.8
-appreciate Cardiology
-TTE 02/07 with EF 30-35%; hypokinesis of anterior, anteroseptal inferoseptal and inferior hoffman new from prior
-s/p cardiac cath on 02/11 showing multivessel coronary artery disease without culprit lesion, no PCI
-continue BOX CAR CHECKER Plavix 75mg PO QD + new start aspirin (continue x 3 weeks total for TIA then PLavix daily alone)
-New start Metoprolol
-Continue statin
HFrEF, acute exacerbation
-CT chest negative for PE.ea
-TTE results above, EF 30-35%
-wedge pressure elevated on cardiac cath 02/11
-continue diuresis
-GDMT: Spironolactone, Losartan, Metop XL
-continue BOX CAR CHECKER Farxiga
NSVT
-increased ectopy afternoon 02/08 responded to IV Mag rider
-keep K > 4, Mag > 2
-PVC's overnight, no further NSVT
Hematuria
-s/p non-con CT without e/o stone of mass; UA with 0-2 WBC
-heparin gtt off and hematuria resolved
-appreciate Urology
Yes, hematuria is related to/associated with/due to heparin.
Left Facial Droop and Mild Dysarthria
TIA
-stroke alert called evening of 02/07
-stat head CT without bleed
-telestroke consulted
-aspirin/Plavix as above (day 11/02 DAPT)
-MRI without e/o acute stroke
-appreciate Neurology
No clear history of diabetes
-A1c 6.3% - prediabetic
BPH baseline continue Flomax
Hypothyroidism replacement with levothyroxine
Parkinson disease
Reportedly LBD
Continue preadmission regimen including Sinemet, Rexulti, Depakote, Celexa.
GI PPx: Start Protonix
Full code
DVT PPx SCD
51 minutes spent on patient care
Anticipated Discharge: Within 24 hours
Subjective/Interval History
-
Date of Service: February 13, 2025
awoken from sleep
feeling okay
urinated a lot
Objective Data
-
Labs:
Laboratory Results
02/13/25
04:08
Sodium 138
Potassium 4.0
Chloride 104
Carbon Dioxide 29
BUN 46 H
Creatinine 0.9
Glucose 158 H
Calcium 9.7
Vital Signs:
Vital Signs
Temp Pulse Resp BP Pulse Ox
97.7 F 71 16 131/91 95
02/13/25 03:41 02/13/25 04:00 02/13/25 03:41 02/13/25 03:42 02/13/25 03:41
I&O
02/12/25 02/13/25 02/14/25
06:59 06:59 06:59
Intake Total 500 / 500 240 / 240
Output Total 500 / 500 1100 / 1100
Balance 0 / 0 -860 / -860
Review of Systems
-
History Source: Patient
All other systems: Reviewed and negative
Physical Exam
-
General: Well Developed and No Apparent Distress
HEENT: Normocephalic, Atraumatic and Moist Mucous Membranes
Respiratory: Clear to Auscultation
Cardiac: Regular Rhythm and S1/S2; Negative Murmur, Rub or Gallop
GI: Soft, Nontender, Nondistended and Normal Bowel Sounds; Negative Organomegaly
Rectal: Deferred by Provider
Musculoskeletal: No Clubbing, No Cyanosis, Edema, Right Lower Extrem and Edema, Left Lower Extrem
Skin: Negative Rash
Neuro: AO x 3, Nonfocal/Grossly Intact and Other (BILL, no facial asymmetry, speech normal )
Psych: Calm
Data Reviewed
-
Diagnostic Radiology: Report Reviewed by me
Labs: Labs Reviewed by me
[2025-02-13 08:09] LABS: Glucose - Point of Care 139 mg/dl (70-99)
--- NOTE | 2025-02-13 08:20 | W.PN.CD ---
Today's Communication / Plan
-
Last day of IV diuresis
EKG today
Likely d/c tomorrow --> increase home lasix to 80 mg and labs in 1 week will arrange cards f/u
Impression / Plan
-
79-year-old man with coronary artery disease (multivessel PCI 2008), heart failure with mildly reduced ejection fraction (45-50%), and mild aortic stenosis who presents for 3-4 weeks of shortness of breath.
Lay Out Machine Operator: Swapnil
Type II MO, in setting of CHF with underlying severe CAD:
-Troponin peaked at 4.9
-no CP
-Cath 02/11:25: Multivessel coronary artery disease (see cath report for details) with no clear culprit lesion. Elevated LV filling pressure and no aortic stenosis on hemodynamic pullback.
-patient on ASA and Plavix currently- continue with neuro event (poss TIA per neuro note). As OP, was just Plavix for hx CVA.
Hematuria:
-resolved
-urology on the case
Left facial droop
- Stroke alert called on 02/07/2025 evening for left facial droop and dysarthria. 7-second run of NSVT preceding this
- CT head with no acute abnormalities
- Deficits have resolved
HFrEF - acute on chronic (LVEF 30-35%)
- EF 45-50% on echo 05/2024. Now 30-35% on 02/07/2025. Cath as noted.
- GDMT:
- BB: Metoprolol started this admission
- FRANKIE/ARB/ARNI: continue losartan
- SGLT2 inhibitor: Continue dapagliflozin
- MRA: Continue spironolactone
- check daily weights, I&Os, follow BMP.
- continue IV lasix last day
- INCREASE lasix to 80 mg on d/c
NSVT
- Improved with aggressive electrolyte repletion
- Continue metoprolol
- Monitor on telemetry- currently SR with PVC's, periods of AIVR- no symptoms
CAD - multivessel PCI 2008
- will cont with now aspirin plavix
HLD - stable on Pravastatin, Zetia and Praluent, continue.
Subjective:
Denies CP
Breathing unchanged
significant urination per patient
Physical Exam
Vital Signs/Labs
Vital Signs
Temp Pulse Resp BP Pulse Ox
97.3 F 71 20 131/91 100
02/13/25 08:05 02/13/25 04:00 02/13/25 08:05 02/13/25 03:42 02/13/25 08:05
02/12/25 02/13/25 02/14/25
06:59 06:59 06:59
Actual Weight 160 lb 14.999 oz
02/12/25 04:31
02/13/25 04:08
APTT 75.1 Sec (23.4-35.0) H 02/10/25 10:46
Magnesium 2.3 mg/dl (1.6-2.3) 02/13/25 04:08
Triglycerides 73 mg/dl (10-149) 02/07/25 06:27
LDL Cholesterol, Calc 14 mg/dl 02/07/25 06:27
VLDL Cholesterol, Calc 14 mg/dl (0-30) 02/07/25 06:27
HDL Cholesterol 75 mg/dl 02/07/25 06:27
Free T4 1.33 ng/dl (0.78-2.19) 02/07/25 06:27
02/06/25
18:21
Che-M-Mumhdduagpz Pept 5340
Physical Exam
Constitutional: No acute distress
EENT: Anicteric
Cardiovascular: Rhythm/rate is irregular
Respiratory: Respiratory effort normal and Lungs clear to auscul.
GI: Soft
Neuro/Psych: AO x 3
Data Reviewed
-
Date of Service: February 13, 2025
EKG: Tracing Personally Visualized and interpreted
Echo: Report Reviewed by me
Labs: Labs Reviewed by me
--- NOTE | 2025-02-13 08:38 | PTCARENOTE ---
EKG performed per . MD Swapnil reviewed results
[2025-02-13] MEDS: LASIX 80 MG IV ×2 (09:01→16:20)
[2025-02-13] MEDS: ZETIA 10 MG PO (09:03)
[2025-02-13] MEDS: COLACE 100 MG PO (09:03)
[2025-02-13] MEDS: COZAAR 25 MG PO (09:03)
[2025-02-13] MEDS: PLAVIX 75 MG PO (09:03)
[2025-02-13] MEDS: ALDACTONE 12.5 MG PO (09:03)
[2025-02-13] MEDS: PROSCAR 5 MG PO (09:04)
[2025-02-13] MEDS: CELEXA 40 MG PO (09:04)
[2025-02-13] MEDS: LOW STRENGTH ASPIRIN 81 MG PO (09:04)
[2025-02-13] MEDS: PROTONIX 40 MG PO (09:04)
[2025-02-13] MEDS: TOPROL XL 25 MG PO ×2 (09:04→19:55)
[2025-02-13] MEDS: SINEMET 25-100 2 TABLET PO ×2 (09:05→14:05)
[2025-02-13] MEDS: NOVOLOG FLEXPEN-LOW RESISTANCE SC (09:14)
[2025-02-13] MEDS: FARXIGA 10 MG PO (09:14)
[2025-02-13 12:58] LABS: Glucose - Point of Care 175 mg/dl (70-99)
[2025-02-13] MEDS: NOVOLOG FLEXPEN-LOW RESISTANCE 1 UNITS SC ×2 (14:26→17:49)
--- NOTE | 2025-02-13 14:39 | CM ---
Reviewed chart. Met with and Mrs. Noble to review discharge plans. Telephone call to [facility] Admission to check on bed availability. Will need to confirm bed availability in a.m;. If [facility] has a bed, he will need a COVID Test.
We reviewed transportation to [facility]. Mrs. Noble is agreeable to wheelchair van and she is aware of the out of pocket cost. Medical work-up in progress. The discharge plan is to go to [facility] if bed available when medically stable.
[2025-02-13 16:12] LABS: Glucose - Point of Care 169 mg/dl (70-99)
--- NOTE | 2025-02-13 16:31 | PTCARENOTE ---
Pt's at bedside, noticing visual changes from patientwhile sitting in the chair. Neuro check and NIH score performed, scored 4. x3 assist back into bed, Blood sugar taken (169). MD Antoinette maloney texted and Md lam[facility] performing her own
assessment. Pt appeared more alert and denies visual changed. MD would like to continue to monitor, performing neuro checks more frequent. Pt dyspneic and O2 placed at 2L even though stat at is 100%
[2025-02-13] MEDS: DEPAKOTE ER (24 HR RELEASE) 500 MG PO (21:23)
[2025-02-13] MEDS: FLOMAX 0.4 MG PO (21:24)
[2025-02-13] MEDS: PRAVACHOL 80 MG PO (21:24)
[2025-02-13 22:41] LABS: Glucose - Point of Care 176 mg/dl (70-99)
--- NOTE | 2025-02-13 23:23 | PTCARENOTE ---
Received pt @ change of shift. AAOx3, VSS-- Idioventricular rhythm w/ PVCs/bigeminy on monitor. Right radial site clean, dry, and intact. Slight facial droop on left side. C/o 2/10 headache around eyes-- denies pain medication @ this time. #[address]. Bed alarm in place for patient safety. Discussed plan of care for evening. Pt verbalizes understanding. Call segundo within reach.
[2025-02-14] VITALS (8 sets, daily range): BP systolic 86–128; BP diastolic 50–98; BMI 25.9
[2025-02-14] MEDS: SYNTHROID 50 MCG PO (06:03)
--- NOTE | 2025-02-14 06:41 | W.DCSUMMARY ---
Discharge Summary
Discharge Data
Date of Admission: 02/06/25
Date of Discharge: 02/14/25
-
Pending Results: No
Hospital Course
Discharging Physician : Dr. Antoinette Maurer
Disposition : SNF
Primary care physician : Dr. Olvin Gibson
Principal Discharge diagnosis : Heart Failure reduced Ejection Fraction, Acute Exacerbation, Transient Ischemic Attack
Chronic Discharge diagnosis :
Hospital Course :
Mr. Adrian Noble is a 79 yo man with hx Parkinson's, dementia, HFmrEF, NIDDM, HTN, BPH, CAD with prior NSTEMI, hypothyroidism presents to the ER with worsening shortness of breath over the past 2 weeks.
On arrival in the emergency department he was hypertensive to 178/120 with a pulse rate of 102 and he was satting 98% on room air. ECG shows a normal sinus rhythm at a rate of 97 with a right bundle which is unchanged compared to prior. Troponin
was elevated at 3.27. BNP was 5300. CBC was unremarkable. Electrolytes BUN and creatinine went well for a potassium of 3.3 but otherwise unremarkable. CXR without e/o pneumonia; CT without PE.
Patient was admitted to medicine with Cardiology consulting for concern for NSTEMI and acute heart failure exacerbation. He was started on an IV Heparin gtt and aspirin added to his regimen (he was on Plavix prior to admission). TTE with depressed
EF to 30%-35% and findings of new wall motion abnormalities. He had ectopy that improved with electrolyte repletion. He underwent cardiac cath on 02/11/25 which showed no cuplrit lesion for NH, therefore Troponin elevation though 2/2 type II NH
demand ischemia in setting of heart failure.
Patient was diuresed during stay with drop in weight from 78.6kg to 74.8kg on day of discharge. His EXERCISE PHYSIOLOGIST Lasix is increased from 40mg daily to 80mg daily. *Of note, on day of discharge patient had increased BUN with mild dizziness with standing. He
is given a small 250cc bolus and asked to hold Lasix x 1 day then resume higher dose on Monday. He will get close follow up labs.
Hospital course complicated by stroke alert on HD 1 as patient had sudden facial droop and dysarthria. It self-resolved within [address] without bleed. Patient will continue on DAPT x 21 days total then resume his EXERCISE PHYSIOLOGIST Plavix 75mg daily.
Hospital course complicated by hematuria while on IV heparin gtt. This resolved off drip. CT A/P non-con without significant lesion. He was seen by Urology and will follow up as outpatient.
Patient is significantly deconditioned from his hospital stay and will be discharged to SNF.
Time spent on discharge was 40 minutes.
Important imaging findings :
CT A/P
IMPRESSION:
No renal or ureteral calculus. No bladder calculus.
There is mild bilateral perinephric soft tissue stranding, as well as right periureteral soft tissue stranding. There is minor wall thickening of the bladder with soft tissue stranding, possibly related to underdistention. However, the possibility
of a urinary tract infection cystitis/pyelonephritis may be considered in the proper clinical setting. Mild nonspecific presacral soft tissue edema
Diverticulosis without acute diverticulitis. Mild colonic fecal burden. No bowel obstruction.
Stable hepatic subcentimeters cyst. Interval development of 14 mm hepatic cyst.
Stable bilateral adrenal nodules, consistent with benign adenomas.
TTE
SUMMARY
1. Moderately reduced left ventricular systolic function. LVEF 30-35%.
2. Hypokinesis of the anterior, anteroseptal, inferoseptal, and inferior hoffman.
3. Probably moderate low-flow low gradient aortic stenosis (peak/mean 19/11 mmHg, RON 1.2 cm², DVI 0.36, SVi 22).
4. Moderate mitral regurgitation.
5. Moderate tricuspid regurgitation. PASP 54 mmHg.
6. Compared to prior echocardiogram in May 2024, LVEF is 30-35% from 45-50%. There are new regional wall motion abnormalities. Valvular disease (MR/TR) is worse on direct visual comparison.
Procedure findings :
Cardiac Cath 02/11/25
CONCLUSIONS
1. Multivessel coronary artery disease as described with no clear culprit lesion, suggesting the patient's troponin elevation is more consistent with type II NSTEMI in the setting of heart failure with severe underlying coronary disease.
2. Elevated LV filling pressure and no aortic stenosis on hemodynamic pullback
Discharge Plan
-
Patient Disposition: Skilled Nursing/SNF
Discharge Diagnosis/Procedures: heart failure reduced ejection fraction, acute exacerbation, transient ischemic attack
Diet: 2 Gram Sodium and Restrict fluids to 48 oz
Activity: As tolerated
Driving Restrictions: As prior to admission
Bathing Restrictions: None
Blood Work: BMP in 3-5 days and then one week later
Other Services: PT and OT
Specialty Instructions: Weigh Daily- Call MD for wt gain/loss 3 lbs overnight/5 lbs in 1 week
Instructions: *CBC Heart Failure Instructions
Stand Alone Forms: DC Instructions- Cath/EP Lab
Referrals:
Deepa Resendiz CRNP [Specified Professional Personl, Cardiology] - 02/26/25 8:40 am
Olvin Gibson MD [Family Provider, Internal Medicine]
Additional Discharge Medication Instructions: Your Lasix dose is increased from 40mg daily to 80mg daily. Start taking Lasix on 02/16/25. We are holding for one day because you are slightly dehydrated. Your labs will be repeated in 3-5 days and
then again one week after on this higher dose.
Take aspirin 81mg daily x 14 more days for treatment of TIA (mini stroke)
Continue to take Plavix 75mg daily
Take Protonix while on aspirin and Plavix to protect the lining of the stomach
You are newly started on Metoprolol 25mg XL twice a day
Prescriptions:
New
pantoprazole 40 mg Tablet,Delayed Release (Dr/Ec)
40 mg PO DAILY Qty: 14 0RF
aspirin 81 mg Tablet,Chewable
81 mg PO DAILY Qty: 14 0RF
metoprolol succinate 25 mg Tablet Extended Release 24 Hr
25 mg PO BID Qty: 60 0RF
melatonin 3 mg capsule
3 mg PO HS PRN (Reason: insomnia) Qty: 30 0RF
Continued
pravastatin 80 mg Tablet
80 mg PO HS
tamsulosin 0.4 mg Capsule
0.4 mg PO HS
carbidopa-levodopa 25-100 mg Tablet
2 tab PO BID@0800,1500
coenzyme Q10 [CoQ-10] 100 mg Capsule
200 mg PO QPM
finasteride 5 mg Tablet
5 mg PO DAILY
nitroglycerin 0.4 mg tablet, sublingual
0.4 mg sublingual [id number] PRN (Reason: chest pain)
clopidogrel [Plavix] 75 mg Tablet
75 mg PO DAILY
ezetimibe [Zetia] 10 mg Tablet
10 mg PO DAILY
divalproex 250 mg Tablet Extended Release 24 Hr
500 mg PO HS
Praluent Pen 75 mg/mL Pen Injector
75 mg SC Q14D
citalopram [Celexa] 40 mg Tablet
40 mg PO DAILY
docusate sodium [Colace] 100 mg Capsule
100 mg PO Q48H
cholecalciferol (vitamin D3) [Vitamin D3] 50 mcg (2,000 unit) Capsule
50 mcg PO DAILY
multivitamin Tablet
1 tab PO HS
dapagliflozin propanediol 10 mg Tablet
10 mg PO DAILY Qty: 0 0RF
acetaminophen [Tylenol] 325 mg Tablet
650 mg PO Q6HPRN PRN (Reason: mild pain)
donepezil 10 mg Tablet
10 mg PO HS
spironolactone 25 mg Tablet
12.5 mg PO DAILY
losartan 25 mg Tablet
25 mg PO DAILY
Rexulti 1 mg Tablet
2 mg PO QPM
levothyroxine [Synthroid] 100 mcg Tablet
100 mcg PO SUSA
levothyroxine [Synthroid] 50 mcg Tablet
50 mcg PO MOTUWETHFR
Held
furosemide 40 mg Tablet
40 mg PO DAILY Qty: 0 0RF
Hold Instructions: Resume on 02/16/25.
Discharge Orders:
Discharge Patient (As Directed); Ordered 02/14/25
Ordered By: Antoinette Maurer
Care Plan Goals
Care Plan Goals:
Problem: Readiness for enhanced knowledge related to diagnosis and treatment plan
Goal: Understand your diagnosis and treatment plan needs, including medications if applicable.
Instructions: Know your diagnosis, underlying causes and treatment plan options, including medications if applicable. Consult with your health care team to learn about your diagnosis and treatment plan, including medications if applicable.
Discharge Date and Time
Print Language: NIGERIEN
[2025-02-14 07:45] LABS: Glucose - Point of Care 197 mg/dl (70-99)
--- NOTE | 2025-02-14 08:06 | W.PN.HOSP.TC ---
Today's Communication/Plan
-
expect DC after morning labs to SNF
Assessment / Plan
Assessment / Plan
Impression
79-year-old with past medical history significant for CAD status post NSTEMI with remote stents currently on Plavix, CHF with mildly reduced EF of around 45 to 50%, aortic sclerosis with mild stenosis, aortic valve gradient 15/8 mmHg suggestive of
mild aortic stenosis accompanied with dyspnea on exertion, shortness of breath, orthopnea over the last 2 weeks. No improvement despite increasing his Lasix to 40 mg daily. Troponin 3.2, no reported chest pain. TTE with WMA. Admitted for heart
failure and NSTEMI now s/p cardiac cath without culptit lesion and e/o increased filling pressures.
CT A/P
IMPRESSION:
No renal or ureteral calculus. No bladder calculus.
There is mild bilateral perinephric soft tissue stranding, as well as right periureteral soft tissue stranding. There is minor wall thickening of the bladder with soft tissue stranding, possibly related to underdistention. However, the possibility
of a urinary tract infection cystitis/pyelonephritis may be considered in the proper clinical setting. Mild nonspecific presacral soft tissue edema
Diverticulosis without acute diverticulitis. Mild colonic fecal burden. No bowel obstruction.
Stable hepatic subcentimeters cyst. Interval development of 14 mm hepatic cyst.
Stable bilateral adrenal nodules, consistent with benign adenomas.
Cardiac Cath 02/11/25
CONCLUSIONS
1. Multivessel coronary artery disease as described with no clear culprit lesion, suggesting the patient's troponin elevation is more consistent with type II NSTEMI in the setting of heart failure with severe underlying coronary disease.
2. Elevated LV filling pressure and no aortic stenosis on hemodynamic pullback
Plan:
Type II NSTEMI in setting of heart failure
-Troponin peaked at 3.9; re-trended post NSVT (see below) and up to 4.8
-appreciate Cardiology
-TTE 02/07 with EF 30-35%; hypokinesis of anterior, anteroseptal inferoseptal and inferior hoffman new from prior
-s/p cardiac cath on 02/11 showing multivessel coronary artery disease without culprit lesion, no PCI
-continue NUTRITION CLUB AMBASSADOR Plavix 75mg PO QD + new start aspirin (continue x 3 weeks total for TIA then PLavix daily alone)
-New start Metoprolol
-Continue statin
HFrEF, acute exacerbation
-CT chest negative for PE.ea
-TTE results above, EF 30-35%
-wedge pressure elevated on cardiac cath 02/11
-continue diuresis
-GDMT: Spironolactone, Losartan, Metop XL
-continue NUTRITION CLUB AMBASSADOR Farxiga
NSVT
-increased ectopy afternoon 02/08 responded to IV Mag rider
-keep K > 4, Mag > 2
-PVC's overnight, no further NSVT
Hematuria
-s/p non-con CT without e/o stone of mass; UA with 0-2 WBC
-heparin gtt off and hematuria resolved
-appreciate Urology
Yes, hematuria is related to/associated with/due to heparin.
Left Facial Droop and Mild Dysarthria
TIA
-stroke alert called evening of 02/07
-stat head CT without bleed
-telestroke consulted
-aspirin/Plavix as above (day 12/02 DAPT)- DC on 14 more days aspirin
-MRI without e/o acute stroke
-appreciate Neurology
-02/13 was concerned with some vision changes; on exam patient globally weak and no pronator drift; with no focal deficit and this morning patient reports vision changes resolved; he is a poor historian in setting of dementia and also appears
very fatigued - no complaints this morning
No clear history of diabetes
-A1c 6.3% - prediabetic
BPH baseline continue Flomax
Hypothyroidism replacement with levothyroxine
Parkinson disease
Reportedly LBD
Continue preadmission regimen including Sinemet, Rexulti, Depakote, Celexa.
GI PPx: Start Protonix
Full code
DVT PPx SCD
51 minutes spent on patient care
Anticipated Discharge: Today
Subjective/Interval History
-
Date of Service: February 14, 2025
feeling tired this morning
no changes in vision ( was concerned yesterday)
no focal weakness
Objective Data
-
Labs:
Laboratory Results
02/14/25
07:56
Sodium Pending
Potassium Pending
Chloride Pending
Carbon Dioxide Pending
BUN Pending
Creatinine Pending
Glucose Pending
Calcium Pending
Vital Signs:
Vital Signs
Temp Pulse Resp BP Pulse Ox
97.8 F 85 20 120/82 100
02/13/25 22:27 02/13/25 22:00 02/13/25 22:27 02/13/25 21:23 02/13/25 22:27
I&O
02/13/25 02/14/25 02/15/25
06:59 06:59 06:59
Intake Total 240 / 240 720 / 720
Output Total 1100 / 1100 1020 / 1020
Balance -860 / -860 -300 / -300
Review of Systems
-
History Source: Patient
All other systems: Reviewed and negative
Physical Exam
-
General: Well Developed and No Apparent Distress
HEENT: Normocephalic, Atraumatic and Moist Mucous Membranes
Respiratory: Clear to Auscultation
Cardiac: Regular Rhythm and S1/S2; Negative Murmur, Rub or Gallop
GI: Soft, Nontender, Nondistended and Normal Bowel Sounds; Negative Organomegaly
Rectal: Deferred by Provider
Musculoskeletal: No Clubbing, No Cyanosis, Edema, Right Lower Extrem and Edema, Left Lower Extrem
Skin: Negative Rash
Neuro: AO x 3, Nonfocal/Grossly Intact and Other (BILL, no facial asymmetry, speech normal )
Psych: Calm
Data Reviewed
-
Diagnostic Radiology: Report Reviewed by me
Labs: Labs Reviewed by me
[2025-02-14] MEDS: NOVOLOG FLEXPEN-LOW RESISTANCE 1 UNITS SC ×2 (09:32→12:46)
[2025-02-14] MEDS: SINEMET 25-100 2 TABLET PO ×2 (09:33→16:07)
[2025-02-14] MEDS: CELEXA 40 MG PO (09:34)
[2025-02-14] MEDS: PROSCAR 5 MG PO (09:34)
[2025-02-14] MEDS: PLAVIX 75 MG PO (09:34)
[2025-02-14] MEDS: LOW STRENGTH ASPIRIN 81 MG PO (09:34)
[2025-02-14] MEDS: PROTONIX 40 MG PO (09:34)
[2025-02-14] MEDS: FARXIGA 10 MG PO (09:35)
[2025-02-14] MEDS: ZETIA 10 MG PO (09:35)
[2025-02-14] MEDS: FLUSH (NSS) 2 FLUSH IV (09:36)
[2025-02-14] MEDS: TOPROL XL 25 MG PO (10:27)
--- NOTE | 2025-02-14 10:35 | PTCARENOTE ---
Received patient this morning sitting oob in the chair, alarm in place. NIH scale is 0, patient appears very weak and deconditioned. While giving morning meds, BP 80's/50-60's, he is asymptomatic. TT to Dr. Maurer, ok to give metoprolol but held
losartan and aldactone for now. Plan is for him to go to [facility] today.
[2025-02-14 11:43] LABS: Blood Urea Nitrogen 57 mg/dl (9-20); Calcium 10.4 mg/dl (8.4-10.2); Carbon Dioxide 26 mmol/L (22-30); Chloride 103 mmol/L (98-107); Estimated Creatinine Clearance 52 ml/min; Glucose 187 mg/dl (70-99); Potassium 4.5 mmol/L (3.5-5.1); Sodium 138 mmol/L (135-145); eGFR > 60.00
[2025-02-14 11:53] LABS: COVID-19 Antigen Negative (Negative)
--- NOTE | 2025-02-14 12:01 | W.DS.TRANS ---
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
-
Discharge Instructions:
Sleep Apnea Risk Intermediate
Discharge Diagnosis/Procedures heart failure reduced ejection fraction, acute
exacerbation, transient ischemic attack
Diet 2 Gram Sodium,Restrict fluids to 48 oz
Activity As tolerated
Driving Restrictions As prior to admission
Bathing Restrictions None
Blood Work BMP in 3-5 days and then one week later
Other Services PT,OT
Specialty Instructions Weigh Daily
Instructions: *CBC Heart Failure Instructions
Stand-Alone Forms: DC Instructions- Cath/EP Lab
Changes to Home Medications: Yes
Discharge Medications:
DC Medications w/original date entered in [facility]
carbidopa 25 mg-levodopa 100 mg tablet 2 tab PO BID@0800,1500 Neurological Condition 02/17/22
coenzyme Q10 100 mg capsule (CoQ-10) 200 mg PO QPM Supplement 02/17/22
pravastatin 80 mg tablet 80 mg PO HS High cholesterol 02/17/22
tamsulosin 0.4 mg capsule 0.4 mg PO HS Urinary issue 02/17/22
finasteride 5 mg tablet 5 mg PO DAILY Urinary Issue 11/04/22
nitroglycerin 0.4 mg sublingual tablet 0.4 mg sublingual [id number] PRN chest pain 11/04/22
alirocumab 75 mg/mL subcutaneous pen injector (Praluent Pen) 75 mg SC Q14D 06/14/24
citalopram 40 mg tablet (Celexa) 40 mg PO DAILY 06/14/24
clopidogrel 75 mg tablet (Plavix) 75 mg PO DAILY 06/14/24
divalproex 250 mg tablet,extended release 24 hr 500 mg PO HS 06/14/24
docusate sodium 100 mg capsule (Colace) 100 mg PO Q48H 06/14/24
ezetimibe 10 mg tablet (Zetia) 10 mg PO DAILY 06/14/24
cholecalciferol (vitamin D3) 50 mcg (2,000 unit) capsule (Vitamin D3) 50 mcg PO DAILY 06/15/24
multivitamin 1 tab PO HS 06/15/24
dapagliflozin propanediol 10 mg tablet 10 mg PO DAILY #0 tabs 06/19/24
furosemide 40 mg tablet 40 mg PO DAILY #0 tabs 06/19/24
Held on 02/14/25. Instructions: Resume on 02/16/25.
acetaminophen 325 mg tablet (Tylenol) 650 mg PO Q6HPRN PRN mild pain 02/06/25
brexpiprazole 1 mg tablet (Rexulti) 2 mg PO QPM 02/06/25
donepezil 10 mg tablet 10 mg PO HS 02/06/25
levothyroxine 100 mcg tablet (Synthroid) 100 mcg PO SUSA 02/06/25
levothyroxine 50 mcg tablet (Synthroid) 50 mcg PO MOTUWETHFR 02/06/25
losartan 25 mg tablet 25 mg PO DAILY 02/06/25
spironolactone 25 mg tablet 12.5 mg PO DAILY 02/06/25
aspirin 81 mg chewable tablet 81 mg PO DAILY #14 tabs 02/14/25
melatonin 3 mg capsule 3 mg PO HS PRN insomnia #30 caps 02/14/25
metoprolol succinate 25 mg tablet,extended release 24 hr 25 mg PO BID #60 tabs 02/14/25
pantoprazole 40 mg tablet,delayed release 40 mg PO DAILY #14 tabs 02/14/25
Home Medication Changes
Your Lasix dose is increased from 40mg daily to 80mg daily. Start taking Lasix on 02/16/25. We are holding for one day because you are slightly dehydrated. Your labs will be repeated in 3-5 days and then again one week after on this higher dose.
Take aspirin 81mg daily x 14 more days for treatment of TIA (mini stroke)
Continue to take Plavix 75mg daily
Take Protonix while on aspirin and Plavix to protect the lining of the stomach
You are newly started on Metoprolol 25mg XL twice a day
Pending Results: No
--- NOTE | 2025-02-14 12:17 | CM ---
Patient being discharged to [facility]. notified. Wheelchair van to pick patient up at 5pm.
[2025-02-14] MEDS: ALDACTONE PO (12:25)
[2025-02-14] MEDS: COZAAR PO (12:25)
[2025-02-14] MEDS: NSS 250 IV (12:36)
[2025-02-14 12:44] LABS: Glucose - Point of Care 161 mg/dl (70-99)
[2025-02-14] MEDS: FLUZONE HIGH-DOSE 2025-26 0.5 ML IM (16:07)
--- NOTE | 2025-02-14 17:17 | PTCARENOTE ---
Patient received IV fluid bolus as ordered, denies any dizziness, BP stable. Assisted with the rolling walker and had a large bowel movement. Telephoned his for influenza screening and flu shot given as requested. patient given dinner, awaiting
transfer to [facility], report called.
== END 2025-02-14 17:30 | DRG 280 ==
LOC: IVU 23:58
PROVIDERS: Emergency Medicine; Internal Medicine; Nurse Practitioner; Physician Assistant; Student in an Organized Health Care Education/Training Program; ADMITTING PHYSICIAN Internal Medicine; ATTENDING PHYSICIAN Student in an Organized Health Care Education/Training Program; CONSULT PHYSICIAN Internal Medicine; CONSULT PHYSICIAN Psychiatry & Neurology Neurology; CONSULT PHYSICIAN Urology; EMERGENCY PHYSICIAN Emergency Medicine; FAMILY PHYSICIAN Internal Medicine Geriatric Medicine
PROC: 4A023N7 Measurement of Cardiac Sampling and Pressure, Left Heart, Percutaneous Approach (ICD-10-PCS; 2025-02-11)
PROC: B2111ZZ Fluoroscopy of Multiple Coronary Arteries using Low Osmolar Contrast (ICD-10-PCS; 2025-02-11)
PROC: 3E02340 Introduction of Influenza Vaccine into Muscle, Percutaneous Approach (ICD-10-PCS; 2025-02-14)
DX: I11.0 Hypertensive heart disease with heart failure (principal); I50.23 Acute on chronic systolic (congestive) heart failure; I21.A1 Myocardial infarction type 2; I47.20 Ventricular tachycardia, unspecified; G45.9 Transient cerebral ischemic attack, unspecified; D68.32 Hemorrhagic disorder due to extrinsic circulating anticoagulants; G95.20 Unspecified cord compression; I25.10 Atherosclerotic heart disease of native coronary artery without angina pectoris; Z87.891 Personal history of nicotine dependence; N40.1 Benign prostatic hyperplasia with lower urinary tract symptoms; I25.5 Ischemic cardiomyopathy; G30.9 Alzheimer's disease, unspecified; G31.09 Other frontotemporal neurocognitive disorder; G31.83 Neurocognitive disorder with Lewy bodies; K57.30 Diverticulosis of large intestine without perforation or abscess without bleeding; E87.6 Hypokalemia; E03.9 Hypothyroidism, unspecified; C43.9 Malignant melanoma of skin, unspecified; G20.A1 Parkinson's disease without dyskinesia, without mention of fluctuations; I06.0 Rheumatic aortic stenosis; E11.29 Type 2 diabetes mellitus with other diabetic kidney complication; E26.9 Hyperaldosteronism, unspecified; E27.8 Other specified disorders of adrenal gland; E78.00 Pure hypercholesterolemia, unspecified; G47.00 Insomnia, unspecified; G72.41 Inclusion body myositis [IBM]; H25.13 Age-related nuclear cataract, bilateral; I15.1 Hypertension secondary to other renal disorders; I25.2 Old myocardial infarction; T45.515A Adverse effect of anticoagulants, initial encounter; I45.10 Unspecified right bundle-branch block; J30.9 Allergic rhinitis, unspecified; K76.89 Other specified diseases of liver; M16.11 Unilateral primary osteoarthritis, right hip; N28.9 Disorder of kidney and ureter, unspecified; R31.0 Gross hematuria; R32 Unspecified urinary incontinence; Z11.52 Encounter for screening for COVID-19; Z79.02 Long term (current) use of antithrombotics/antiplatelets; Z79.890 Hormone replacement therapy; Z79.899 Other long term (current) drug therapy; Z87.442 Personal history of urinary calculi; Z95.5 Presence of coronary angioplasty implant and graft; Z23 Encounter for immunization
CPT/HCPCS: 70450; 70553; 71045; 71275; 74176; 80048; 80053; 80061; 81003; 81015; 82962; 83036; 83735; 83880; 84132; 84439; 84443; 84484; 85025; 85027; 85576; 85730; 87811; 90662; 92610; 93005; 93306; 93458; 93880; 94761; 96365; 96366; 96375; 97112; 97163; 97166; 97530; 99152; 99153; 99285; A9575; C1769; C1894; G0008; Q9967

== ENCOUNTER 2025-02-15 23:16 | Inpatient (IN) | payer MEDICARE, OTHER, SELFPAY ==
[2025-02-15] VITALS (22 sets, daily range): BP systolic 69–119; BP diastolic 46–81; BMI 27.7
--- NOTE | 2025-02-15 17:57 | ED.GENMED ---
History of Present Illness
General
Chief Complaint: Breathing Problem
Source: patient, records and ambulance crew
Time Seen by Provider: 02/15/25 17:57
History of Present Illness
History of Present Illness:
79-year-old male who I was first alerted about via EMS prehospital. They were called to the facility that he is at because he was reportedly tired and potentially in respiratory distress. Upon their arrival, patient's heart rate 80, blood pressure
84/60, and unable to get a pulse ox because of suspected Raynaud's, but EMS did not feel the patient exhibited any signs of shortness of breath or respiratory distress. He did not have chest pain on transport. His prehospital EKG was abnormal
which was sent over to me. I obtained the patient's name and date of , reviewed his discharge paperwork from just yesterday, and then spoke to our hydraulic operator confirming that this would not be consistent with a STEMI alert. I
then spoke to our school vocational educator on the team that care for patient while he was hospitalized here. Patient here in the ER is a overall poor historian. He notes mild abdominal discomfort but cannot be more specific regarding location, exacerbating
relieving factors, radiation, etc. He denies chest pain or shortness of breath to me. He denies any other complaints. is at bedside, she states that patient seemed really sleepy today which did her to call the nurses to assess him and they
noted that he was hypoxic. She also notes that his history of Raynaud's is contributing to which she noted a cyanosis of his fingers.
Past History
Past History
ED Past Medical History: CAD, HTN and Hypercholesterolemia
ED Past Surgical History: Cardiac (PTCA with stents) and Orthopedic ((had laminectomy last month, Dr. Santillan).)
Social History
Tobacco: Non-smoker
Alcohol: Occasional
Drug: None
Personal:
Living: with family
Employment: Retired
Family History
Family History: Other (Noncontributory)
Phy Exam
Physical Exam
Physical Exam:
GENERAL: Awake, in no apparent distress
EYE: pupils equal and reactive
NECK: Supple, no significant adenopathy.
ENT: o/p clr, mmm.
CARDIAC: Regular rate and rhythm .
LUNGS: Clear breath sounds bilaterally, no acute respiratory distress, no wheezes/rales/rhonchi
ABDOMEN: Soft, without focal tenderness, no r/g
NEUROLOGICAL: Alert and oriented, speaks in a very soft quiet voice, does not answer many questions, moves all extremities equally, voice clear, no facial droop
SKIN: Warm and dry, skin intact.
MUSCULOSKELETAL: 1+ bilateral lower extremity edema, well perfused.
PSYCH: Normal and appropriate interaction.
Scores
Heart Failure Risk
Heart Failure Risk Score: Not Applicable
Course
Orders/Labs/Results
Orders:
Orders
02/15/25 17:57
Pulse Ox/cont/shift [RESP] Stat
Quantity: 1
02/15/25 17:58
Electrocardiogram (*1) Stat
Reason for Study: Other
Other Reason for Exam: chest pain
Cardiac Monitoring- Treatment ONCE
EKG- Treatment ONCE
02/15/25 18:24
Complete Blood Count/No Diff Urgent
Comprehensive Metabolic Panel Urgent
Magnesium Urgent
02/15/25 19:22
US Abdomen Complete/Upper Urgent
Comment:
Reason For Exam: ruq pain, abnl lft
02/15/25 20:34
NT-proBNP Urgent
Troponin I Urgent
02/15/25 22:50
Admit/Transfer Patient As Directed
Co-Sign Provider:
Level of Care: Inpatient admission
Assign to:: Medical/Surgical
Physician / Group: Geraldo
Diagnosis: Heart Failure, Cardiogenic Shock
Reason for Hospitalization: Heart Failure, Cardiogenic Shock
Expected length of stay greater than two midnights?: Yes
ELOS- Estimated Length of Stay in days: 2
I certify the patient meets the requirements for IP care: Yes
PRN Pain Medication Management As Directed
May give lesser potent ordered pain med per pt: Yes
preference::
Protocol:: Medication orders for pain may be administered in a
manner that supports deferring to patient preference
when the pt is:
- Requesting an ordered lesser potent pain medication.
Least to most potent pain medications are defined
as: acetaminophen < NSAID < tramadol < opioids
(morphine, oxycodone, hydromorphone).
- Requesting a lesser dose of the same medication IF
ORDERED.
- Requesting a less intrusive route of administration
if both routes are prescribed by the provider (PO <
IV).
02/15/25 22:52
Code Status As Directed
Resuscitation Status: Do not resuscitate
Reached after discussion with pt or family/Healthcare POA: Yes
DNR Bracelet Application ONCE
02/16/25 00:15
Acetaminophen [Tylenol/Feverall] 650 mg RECTAL Q4HPRN PRN
Acetaminophen [Tylenol] 650 mg PO Q4HPRN PRN
Haloperidol Lactate [Haldol Concentrate] 0.5 mg SL Q4HPRN PRN
Haloperidol Lactate [Haldol] 0.5 mg IV Q4HPRN PRN
Lorazepam [Ativan] 0.5 mg PO Q2HPRN PRN
Morphine Sulfate 1 mg IV Q1HPRN PRN
Morphine Sulfate See Protocol IV [id number] PRN
Begin protocol on step:: refer to Morphine infusion order
Morphine Sulfate 100 mg/100 ml [Morphine] 100 mg in 100 ml IV PER PROTOCOL
Begin protocol on step:: 1
Nitroglycerin Sublingual [Nitrostat (Sublingual)] 0.4 mg SL [id number] PRN chest pain
Prochlorperazine [Compazine] 5 mg IV Q6HPRN PRN
02/16/25 00:15
Transfer Patient As Directed
Transfer to: Medical/Surgical
Case Management Consult ONCE
Case Management Consult: Discharge Planning
Hospice
Hospice: Evaluation and treat
VTE Contraindication Routine
VTE Mechanical Device Contraindication: Comfort Care mgmt
Pharmocologic Contraindication: Comfort Care mgmt
Activity As Directed
Activity Level: Out of Bed- Chair
With Assistance
Bladder Scan As Directed
Follow Bladder Retention/Intermittent Cath Algorithm?: Yes
PRN if no void in __ hours: 6
Frequency: Per Retention Algorithm
If Bladder Scan Result >: 400
then:: Straight cath
Comfort Measures As Directed
Comment: Pain and Dyspnea assessment every 4 hours
End of Life Symptom Assessment Q4
INT (Intravenous Needle Therapy) As Directed
Straight Cath As Directed
Frequency: Per Retention Algorithm
Additional Instructions: straight cath as needed per acute urinary retention algorithm for 24 hrs
Additional Instructions: for bladder scan greater than 400 mL
Suction Patient As Directed
Route of Suctioning: Oropharyngeal
Comment: prn for secretions
Vital Signs As Directed
Frequency: Per unit guidelines
Oxygen Therapy [O2 Therapy] [RESP] Routine
Titrate/Wean O2 to maintain O2 sat greater than (%): 94
02/16/25 06:00
Levothyroxine [Synthroid] 100 mcg PO SuSa@0600
02/16/25 08:00
Aspirin Chewable [Low Strength Aspirin] 81 mg PO DAILY
Carbidopa/Levodopa [Sinemet 25-100] 2 tablet PO BID@0800,1500
Clopidogrel Bisulfate [Plavix] 75 mg PO DAILY
02/16/25 18:00
brexpiprazole [Rexulti] 2 mg PO QPM
02/16/25 22:00
Divalproex Extended Rel. 24 Hr [Depakote ER (24 Hr Release)] 500 mg PO HS
02/17/25 06:00
Levothyroxine [Synthroid] 50 mcg PO MoTuWeThFr@0600
Abnormal Lab Results
02/15/25 02/15/25
18:24 20:34
WBC 14.3 H 10^3/uL
(4.8-10.8)
RDW 16.8 H %
(11.5-14.5)
MPV 10.9 H fL
(7.4-10.4)
Sodium 134 L mmol/L
(135-145)
Chloride 95 L mmol/L
(98-107)
BUN 80 H mg/dl
(9-20)
Creatinine 1.7 H mg/dL
(0.7-1.3)
Glucose 200 H mg/dl
(70-99)
Magnesium 2.8 H mg/dl
(1.6-2.3)
Total Bilirubin 1.6 H mg/dl
(0.2-1.3)
AST 660 H* U/L
(17-59)
ALT 93 H U/L
(0-50)
Troponin I 22.100 H* ng/ml
02/15/25 18:24
02/15/25 18:24
Vital Signs
Initial and Last Documented VS:
Initial Vital Signs
Temp Pulse Resp BP Pulse Ox
97.9 F 77 16 92/66 96
02/15/25 18:00 02/15/25 18:00 02/15/25 18:00 02/15/25 18:00 02/15/25 18:00
Last Documented Vital Signs
Temp Pulse Resp BP Pulse Ox
97 F 102 22 78/46 80
02/16/25 12:47 02/16/25 12:47 02/16/25 12:47 02/16/25 12:47 02/16/25 14:33
*Pulse Oximetry
Patient hypoxic: yes
*Critical Care Note
Total Time (30-74mins, 75-104mins- exclusive of procedures): 30
Update Note
Update Note:
Patient presents to the Emergency Department with reported fatigue and hypoxia
Number and Complexity of Problems Addressed at the Encounter
� Chronic conditions affecting care:
� Acute Exacerbation and/or Progression of Chronic Illness:
� Differential Diagnosis includes:
Amount and/or Complexity of Data to be Reviewed and Analyzed
� I performed an independent evaluation of and my interpretation is:
EKG: Read by me and confirmed by cardiology, wide-complex rhythm, normal rate� As per Or from thought to be AIVR
CT:
Xrays:
Laboratory Studies: New leukocytosis, new LFT abnormalities. Moderate RITO which is also new, potassium normal
Other: Ultrasound vision report normal gallbladder few round echogenic foci abutting the gallbladder wall likely small polyps measuring up to 2 mm no sludge or gallstones negative Diehl sign no biliary ductal dilatation
visualized pancreas and bilateral kidneys without acute abnormality incidental 9 mm hepatic cyst unable to evaluate spleen due to overlying external device no free fluid
� Review of other/old records reveals: Patient was just discharged yesterday with a heart failure exacerbation associated with demand ischemia and acute peak troponin in the fours, catheterization performed on February 11. EF
is 30 to 35%. Kidney function and electrolytes were normal as recently as yesterday.
� Clinical information was obtained by an independent historian: who gives further information as noted above
� Prescriptions/Medications Considered but not given:
� Further testing considered but not performed:
Risk of Complications and/or Morbidity or Mortality of Patient Management
� Social determinants of health affecting care:
� Discussion with other providers (PCP, Hospitalists, Consultants, etc):
� Escalation of care including admission/observation vs risk of discharge considered: 6:24 PM RN had multi obtain labs, femme stick performed with consent, she is currently at bedside.
Patient has been reporting abdominal pain which is nonspecific, given this complaint, leukocytosis, and abnormal LFTs ultrasound ordered to evaluate further particular gallbladder. Blood pressure noted, has been labile during his hospitalization
here, and reluctant to begin IV fluids at this time given his tenuous volume status in the context of a abnormal EF/heart failure. Patient's weight is increased approximately 5 kg from his discharge just yesterday.
10:05 PM multiple reassessments most recently just now, patient resting comfortably, systolic blood pressure in the mid 90s. Case again discussed with From cardiology especially made him aware of troponin 22. He is aware of electrolytes,
hemoglobin, etc. Does not have further recommendations at this time, but does recommend overnight hospitalization to the hospitalist with trending of troponins. Case discussed with Dr. Powell. Case also discussed with extensively who is at
bedside.
ED Attending Note
-
Portions of this chart may have been created with voice recognition software.� Occasional wrong word or��sound alike� substitutions may have occurred due to the inherent limitations of voice recognition software.
Discharge Plan
Departure
Patient Disposition: Admit
Date of Disposition: 02/15/25
Time of Disposition: 22:07
Presentation/result/management discussed w/ accepting MD/DO: Hospitalist
Condition: Fair
Discharge Problem:
AIVR (accelerated idioventricular rhythm)
Interventions
Interventions:
*Risk Screen - Suicide Last Done: 02/15/25 18:00
*General Assessment Last Done: 02/16/25 00:55
*Neglect/Abuse Screening Last Done: 02/15/25 18:00
*ED- Fall Risk Assessment Last Done: 02/15/25 18:00
*ED COVID-19 Vaccine History Last Done: 02/16/25 00:55
*ED Influenza Vaccine History Last Done: 02/16/25 00:55
*Nursing Disposition Last Done: 02/16/25 00:55
ED- Cardiac Assessment Last Done: 02/15/25 18:00
ED- Pulmonary Assessment Last Done: 02/15/25 18:00
Discharge Date and Time
Discharge Date/Time: 02/16/25 00:56
[2025-02-15 18:43] LABS: Hematocrit 48.9 % (39.0-52.0); Hemoglobin 16.3 g/dL (13.0-18.0); Mean Corp Hgb Conc. 33.3 g/dL (33.0-37.0); Mean Corpuscular Volume 86.5 fL (80.0-94.0); Platelet Count 265 10^3/uL (130-400); Red Cell Dist. Width 16.8 % (11.5-14.5)
[2025-02-15 19:21] LABS: ALT (SGPT) 93 U/L (0-50); AST (SGOT) 660 U/L (17-59); Albumin 3.9 g/dl (3.5-5.0); Alkaline Phosphatase 70 U/L (38-126); Blood Urea Nitrogen 80 mg/dl (9-20); Calcium 10.0 mg/dl (8.4-10.2); Carbon Dioxide 25 mmol/L (22-30); Chloride 95 mmol/L (98-107); Estimated Creatinine Clearance 33 ml/min; Glucose 200 mg/dl (70-99); Magnesium 2.8 mg/dl (1.6-2.3); Potassium 5.1 mmol/L (3.5-5.1); Sodium 134 mmol/L (135-145); Total Protein 6.3 g/dl (6.3-8.2); eGFR 40.75
[2025-02-15 21:07] LABS: Troponin I 22.100 ng/ml
--- NOTE | 2025-02-15 22:57 | HPS.HSE ---
Family Physician
-
Family Physician: Babatunde Haddad MD
Chief Complaint
-
Fatigue
History of Present Illness
Patient is a 79y M with PMH significant for Parkinson's disease, HFrEF, ASCVD and recent hospitalization for heart failure who presents to ED from local SNF for evaluation of marked fatigue, hypotension and hypoxemia. states that patient
has appeared 'peaked', fatigued and pale for the past several days. This evening at [facility] he was more lethargic. Staff were unable to obtain a pulse ox reading and noted that he had cold extremities. His BP was noted to be very low and he was sent
to the ED for further evaluation. In the ED, patient has been mostly lethargic. He answers some questions. He has complained intermittently of vague abdominal discomfort and chest tightness. Patient has been persistently hypotensive and
hypoxemic here in the ED. He has been restless at times kicking off blankets, etc.
Medical History
Past Medical History
Past Medical History: Reports Other
Additional Past Medical History:
PTCA with stents
laminectomy last month, Dr. Santillan
Type 2 diabetes mellitus without long-term current use of insulin
Benign prostatic hyperplasia with lower urinary tract symptoms
Hyperlipidemia
Essential (primary) hypertension
hyperaldosteronism
Former smoker
Allergic rhinitis
Hypercholesterolemia
History of coronary artery stent placement
Gynecomastia
Hyperaldosteronism
Age-related nuclear cataract, bilateral
Hypertension secondary to other renal disorders
Stented coronary artery
Incomplete right bundle branch block
Essential hypertension
Dyslipidemia
Cervical spinal cord compression
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
Parkinson disease, symptomatic
Atherosclerotic heart disease
History of laminectomy
Primary osteoarthritis of right hip
Alzheimer's disease, unspecified
Major depressive disorder,
Past Surgical History: Reports Other
Additional Past Surgical History:
See above
Social History
Tobacco: Non-smoker
Alcohol: None
Drug: None
Personal:
Living: With Family
Family History
Family History: Not pertinent
Allergies / Home Medications
Allergies reflects when Allergies were last updated in [facility].
Home Medications with original date entered in [facility]
Allergy/Medication List:
Allergies
Allergy/AdvReac Type Severity Reaction Status Date / Time
pollen extracts Allergy SEASONAL-SNEEZING, Verified 02/15/25 18:45
RUNNY NOSE
Home Medications
carbidopa 25 mg-levodopa 100 mg tablet 2 tab PO BID@0800,1500 Neurological Condition 02/17/22
pravastatin 80 mg tablet 80 mg PO HS High cholesterol 02/17/22
tamsulosin 0.4 mg capsule 0.4 mg PO HS Urinary issue 02/17/22
finasteride 5 mg tablet 5 mg PO DAILY Urinary Issue 11/04/22
nitroglycerin 0.4 mg sublingual tablet 0.4 mg sublingual [id number] PRN chest pain 11/04/22
citalopram 40 mg tablet (Celexa) 40 mg PO DAILY 06/14/24
clopidogrel 75 mg tablet (Plavix) 75 mg PO DAILY 06/14/24
docusate sodium 100 mg capsule (Colace) 100 mg PO Q48H 06/14/24
ezetimibe 10 mg tablet (Zetia) 10 mg PO DAILY 06/14/24
cholecalciferol (vitamin D3) 50 mcg (2,000 unit) capsule (Vitamin D3) 50 mcg PO DAILY 06/15/24
multivitamin 1 tab PO HS 06/15/24
dapagliflozin propanediol 10 mg tablet 10 mg PO DAILY #0 tabs 06/19/24
furosemide 40 mg tablet 40 mg PO DAILY #0 tabs 06/19/24
Held on 02/14/25. Instructions: Resume on 02/16/25.
acetaminophen 325 mg tablet (Tylenol) 650 mg PO Q6HPRN PRN mild pain/fever 02/06/25
donepezil 10 mg tablet 10 mg PO HS 02/06/25
levothyroxine 100 mcg tablet (Synthroid) 100 mcg PO SUSA 02/06/25
levothyroxine 50 mcg tablet (Synthroid) 50 mcg PO MOTUWETHFR 02/06/25
losartan 25 mg tablet 25 mg PO DAILY 02/06/25
spironolactone 25 mg tablet 12.5 mg PO DAILY 02/06/25
aspirin 81 mg chewable tablet 81 mg PO DAILY #14 tabs 02/14/25
melatonin 3 mg capsule 3 mg PO HS PRN insomnia #30 caps 02/14/25
metoprolol succinate 25 mg tablet,extended release 24 hr 25 mg PO BID #60 tabs 02/14/25
pantoprazole 40 mg tablet,delayed release 40 mg PO DAILY #14 tabs 02/14/25
bisacodyl 10 mg rectal suppository (Dulcolax (bisacodyl)) 10 mg GA DAILY PRN if no BM 8hr after MOM 02/15/25
brexpiprazole 2 mg tablet (Rexulti) 2 mg PO QPM 02/15/25
divalproex 500 mg tablet,extended release 24 hr 500 mg PO HS 02/15/25
magnesium hydroxide 400 mg/5 mL oral suspension (Milk of Magnesia) 30 ml PO DAILY PRN if no BM x 2 days 02/15/25
sodium phosphates 19 gram-7 gram/118 mL enema (Fleet Enema) 118 ml GA ONCE PRN if no BM 8hr after suppository 02/15/25
Review of Systems
-
History Source: Patient and Family
Constitutional: Reports Fatigue; Denies Fever
Respiratory: Reports Trouble Breathing
Cardiac: Reports Chest Pain
Abdomen/GI: Reports Abdominal Pain; Denies Nausea or Vomiting
: Denies Dysuria or Frequency
Neurological: Reports Weakness; Denies Dizzy or Headache
Physical Exam
Vital Signs
Vital Signs
Temp Pulse Resp BP Pulse Ox
97.9 F 87 16 97/72 96
02/15/25 18:00 02/15/25 21:30 02/15/25 22:00 02/15/25 21:30 02/15/25 22:00
Physical Exam
General: Other (Pale, ill-appearing 79y M. Restless at times and pulling at tele leads, blankets, etc. )
HEENT: Moist mucous membranes and PERRLA
Respiratory: Other (Decreased BS at bases bilaterally.)
Cardiac: Other (Extremely distant S1 S2. No appreciable murmur.)
GI: Soft, Non Tender, Non Distended and Normal Bowel Sounds
Musculoskeletal: No Clubbing and Other (Cyanosis of the digits. 1+ edema at the ankles bilaterally. Extremities are cold to the touch.)
Laboratory Results
-
02/15/25 18:24
02/15/25 18:24
Laboratory Results
Total Bilirubin 1.6 mg/dl (0.2-1.3) H 02/15/25 18:24
AST 660 U/L (17-59) H* 02/15/25 18:24
ALT 93 U/L (0-50) H 02/15/25 18:24
Alkaline Phosphatase 70 U/L (38-126) 02/15/25 18:24
Troponin I 22.100 ng/ml H* 02/15/25 20:34
Impression/Plan
-
A/P: Patient is a 79y M with PMH significant for ASCVD, HFrEF, Parkinson's disease and recent hospital stay who presents to ED from SNF for evaluation of lethargy, hypotension and hypoxemia.
Cardiogenic Shock
End-Stage Conduction System Disease / Idioventricular Rhythm
Acute on Chronic HFrEF
ASCVD with NSTEMI / ACS
Acute Hypoxemic Respiratory Failure secondary to the above
- Admit to hospital for comfort care.
- Long discussion with at the bedside. Reviewed with Cardiology via phone.
- End-stage conduction system disease and CHF with hypotension / shock, hypoxemia, agitation / confusion, etc.
- EKG with wide-complex rhythm and initial troponin = 22 - markedly elevated from prior.
- Had cardiac cath recently with diffuse coronary disease, but no targets for intervention.
- Discussed options with including central line placement, pressor support, etc. She wishes to proceed with comfort care.
- Avoid lab draws, needlesticks, etc.
- Tailor medication therapy for comfort.
- Case Management consulted for possible discharge planning.
Abnormal LFTs - Predominately AST, likely due to cardiac muscle +/- shock liver.
Terminal Agitation
Parkinson's Disease
Hypothyroidism
BPH
Code Status: DNR, Comfort Care only
[2025-02-16] MEDS: MORPHINE SULFATE 1 MG IV ×3 (00:23→02:29)
[2025-02-16 00:56] VITALS: BP 105/74
[2025-02-16 01:06] VITALS: BMI 26.7
[2025-02-16] MEDS: MORPHINE SULFATE 0.5 MG IV (02:11)
[2025-02-16] MEDS: MORPHINE 100 IV (02:45)
[2025-02-16] MEDS: MORPHINE SULFATE 2 MG IV ×2 (03:33→06:12)
--- NOTE | 2025-02-16 04:21 | PTCARENOTE ---
Pt arrived to floor via stretcher from the ED. Pt awakens to tactile stimulation, can nod head appropriately, some whispered words. Pt with noted tachypnea, See MAR. Morphine gtt started per End of Life protocol. Family at bedside, all questions
asked. Comfort care maintained.
[2025-02-16] MEDS: ROBINUL 0.2 MG IV (10:36)
--- NOTE | 2025-02-16 10:40 | W.PN.HOSP.TC ---
Today's Communication/Plan
-
comfort care
I will update when she comes in this afternoon
Assessment / Plan
Assessment / Plan
A/P: Patient is a 79y M with PMH significant for ASCVD, HFrEF, Parkinson's disease and recent hospital stay who presents to ED from SNF for evaluation of lethargy, hypotension and hypoxemia.
Cardiogenic Shock
End-Stage Conduction System Disease / Idioventricular Rhythm
Acute on Chronic HFrEF
ASCVD with NSTEMI / ACS
Acute Hypoxemic Respiratory Failure secondary to the above
- Admitted to hospital for comfort care.
- Dr. Chow had a long discussion with at the bedside and reviewed with Cardiology via phone.
- End-stage conduction system disease and CHF with hypotension / shock, hypoxemia, agitation / confusion
- EKG with wide-complex rhythm and initial troponin = 22 - markedly elevated from prior.
- Had cardiac cath recently with diffuse coronary disease, but no targets for intervention.
- Discussed options with including central line placement, pressor support, etc. She wishes to proceed with comfort care.
- Avoid lab draws, needlesticks, etc.
- Tailor medication therapy for comfort.
- continue IV morphine gtt; robinul PRN, Valium PRN
Abnormal LFTs - Predominately AST, likely due to cardiac muscle +/- shock liver.
Terminal Agitation
Parkinson's Disease
Hypothyroidism
BPH
Code Status: DNR, Comfort Care only
Anticipated Discharge: 24 - 48 hours
Subjective/Interval History
-
Date of Service: February 16, 2025
resting comfortably
Objective Data
-
Vital Signs:
Vital Signs
Temp Pulse Resp BP Pulse Ox
97.9 F 100 24 105/74 98
02/15/25 18:00 02/16/25 00:56 02/16/25 00:56 02/16/25 00:56 02/16/25 01:17
I&O
02/15/25 02/16/25 02/17/25
06:59 06:59 06:59
Intake Total
Balance
Review of Systems
-
History Source: Patient
All other systems: Reviewed and negative
Physical Exam
-
General: Other (patient resting comfortably, opens eyes briefly to voice )
HEENT: PERRLA
Respiratory: Negative Wheezes
Cardiac: S1/S2
GI: Soft and Nontender
Musculoskeletal: No Edema
Skin: Warm and Dry; Negative Rash
Neuro: Sedated
Psych: Calm
Data Reviewed
-
Diagnostic Radiology: Report Reviewed by me
Labs: Labs Reviewed by me
--- NOTE | 2025-02-16 11:59 | CM ---
Met with and family. IMM deferred. Offered hospice services, but they declined. Pt is on morphine drip and comfort care
Plan: Comfort care.
[2025-02-16 12:47] VITALS: BP 78/46
--- NOTE | 2025-02-16 14:00 | PTCARENOTE ---
Report called to [facility]. Plan to transport pt to room 7.
--- NOTE | 2025-02-16 14:36 | PTCARENOTE ---
Received pt into [facility] on hosp[facility], assessment as documented. Family oriented to room, all questions addressed, supportive care given.
--- NOTE | 2025-02-16 16:47 | PTCARENOTE ---
Patient passed at 1619, Dr. Cole called to pronounce.
--- NOTE | 2025-02-16 16:47 | W.PN.DEATH ---
Pronouncement of
-
Called to see patient to pronounce.
No spontaneous heart tones or respirations noted.
Patient not responsive to verbal stimuli.
Patient is pronounced .
Time of : 16:25
Date of : 02/16/25
Cause of : Congestive heart failure, coronary artery disease
Family Notified: Yes
== END 2025-02-16 16:19 | disposition expired | DRG 291 ==
LOC: 2 NORTH 23:16
PROVIDERS: ADMITTING PHYSICIAN Hospitalist; ATTENDING PHYSICIAN Student in an Organized Health Care Education/Training Program; EMERGENCY PHYSICIAN Emergency Medicine; FAMILY PHYSICIAN Family Medicine
DX: I50.23 Acute on chronic systolic (congestive) heart failure (principal); J96.01 Acute respiratory failure with hypoxia; G95.20 Unspecified cord compression; R57.0 Cardiogenic shock; Z66 Do not resuscitate; Z51.5 Encounter for palliative care; G20.A1 Parkinson's disease without dyskinesia, without mention of fluctuations; E03.9 Hypothyroidism, unspecified; I25.10 Atherosclerotic heart disease of native coronary artery without angina pectoris; G30.9 Alzheimer's disease, unspecified; Z79.82 Long term (current) use of aspirin; Z87.891 Personal history of nicotine dependence
CPT/HCPCS: 76700; 80053; 83735; 83880; 84484; 85027; 93005; 99291